=== PATIENT | female | born 1960 | race African-American/Black ===

== ENCOUNTER 2017-03-13 14:03 | Emergency (ER) | payer OTHER ==
[2017-03-13 14:08] VITALS: BP 150/75; PULSE 96; TEMP 97.7; BMI 31.6
--- NOTE | 2017-03-13 15:16 | PDOC ---
History of Present Illness - General Chief Complaint: Pain Stated Complaint: SWOLLEN GUMS Time Seen by Provider: 03/13/17 15:15 History Source: Patient Exam Limitations: No Limitations - History of Present Illness Initial Comments: 03/13/17 15:47 Patient is a 56-year-old female with past medical history of diabetes, HLD, HTN , anicteric attacks, anxiety, presents to the emergency department with 2 days of lower gum pain. Patient states that nothing specifically brought on the pain she does not remember scratching her gums or eating crunchy foods. She states that she has been rinsing with dental wash for the pain which has helped a little bit. She states that that she has seen white stuff coming from her mouth after rinsing. Denies fevers, chills, nausea, vomiting, diarrhea, difficulty swallowing, sore throat, cough, rhinorrhea, ear pain, flulike symptoms. Past History - Travel Traveled outside of the country in the last 30 days: No Close contact w/someone who was outside of country & ill: No - Past Medical History Allergies/Adverse Reactions: Allergies Allergy/AdvReac Type Severity Reaction Status Date / Time No Known Drug Allergies Allergy Verified 03/13/17 14:08 IV CONTRAST AdvReac Uncoded 03/13/17 14:08 Home Medications: Ambulatory Orders Aspirin [ASA -] 81 mg PO DAILY 02/07/12 Citalopram Hydrobromide [Celexa -] 20 mg PO HS 02/07/12 Insulin Detemir [Levemir Flexpen] 60 unit SQ HS 02/07/12 Simvastatin [Zocor -] 20 mg PO HS 02/07/12 Sitagliptin Phosphate [Januvia] 100 mg PO DAILY 02/07/12 Metformin HCl 500 mg PO BID 03/16/16 Amoxicillin - [Amoxicillin 500mg Capsule -] 500 mg PO BID #14 capsule 03/13/17 Anemia: Yes Asthma: No Cancer: No Cardiac Disorders: Yes (? MURMUR) CVA: No COPD: No CHF: No Dementia: No Diabetes: Yes GI Disorders: Yes (GERD) Disorders: No HTN: Yes Hypercholesterolemia: Yes Liver Disease: No Psychiatric Problems: Yes (panic d/o anxiety) Seizures: No Thyroid Disease: Yes (THYROID NODULE) - Surgical History Abdominal Surgery: No Appendectomy: No Cardiac Surgery: No Cholecystectomy: No Lung Surgery: No Neurologic Surgery: No Orthopedic Surgery: No - Immunization History Td Vaccination: Yes Immunization Up to Date: Yes - Suicide/Smoking/Psychosocial Hx Smoking Status: No Smoking History: Never smoked Years of Tobacco Use: 0 Have you smoked in the past 12 months: No Number of Cigarettes Smoked Daily: 0 If you are a former smoker, when did you quit?: 1995 Cigars Per Day: 0 Information on smoking cessation initiated: No Hx Alcohol Use: No Drug/Substance Use Hx: No Substance Use Type: None Hx Substance Use Treatment: No Review of Systems - Review of Systems Able to Perform ROS?: Yes Comments:: 03/13/17 15:48 CONSTITUTIONAL: Absent: fever, chills, diaphoresis, generalized weakness, malaise, loss of appetite HEENT: Absent: rhinorrhea, nasal congestion, throat pain, throat swelling, difficulty swallowing, mouth swelling, ear pain, eye pain, visual Changes CARDIOVASCULAR: Absent: chest pain, loss of consciousness, palpitations, irregular heart rate, peripheral edema RESPIRATORY: Absent: cough, shortness of breath, dyspnea with exertion, orthopnea, wheezing, stridor, hemoptysis GASTROINTESTINAL: Absent: abdominal pain, abdominal distension, nausea, vomiting, diarrhea, constipation, melena, hematochezia GENITOURINARY: Absent: dysuria, frequency, urgency, hesitancy, hematuria, flank pain, genital pain MUSCULOSKELETAL: Absent: myalgia, arthralgia, joint swelling SKIN: Absent: rash, itching, pallor HEMATOLOGIC/IMMUNOLOGIC: Absent: easy bleeding, easy bruising, lymphadenopathy, frequent infections ENDOCRINE: Absent: unexplained weight gain, unexplained weight loss, heat intolerance, cold intolerance NEUROLOGIC: Absent: headache, focal weakness or paresthesias, dizziness, unsteady gait, seizure, mental status changes, bladder or bowel incontinence PSYCHIATRIC: Absent: anxiety, depression, suicidal or homicidal ideation, hallucinations. Is the patient limited Cypriot proficient: No *Physical Exam - Vital Signs Last Vital Signs Temp Pulse Resp BP Pulse Ox 97.7 F 96 H 18 150/75 99 03/13/17 14:05 03/13/17 14:05 03/13/17 14:05 03/13/17 14:05 03/13/17 14:05 - Physical Exam Comments: 03/13/17 15:48 GENERAL: Well developed, well nourished. Awake and alert. No acute distress. HEENT: Normocephalic, atraumatic. PERRLA, EOMI. No conjunctival pallor. Sclera are non- icteric. Moist mucous membranes. Oropharynx is clear. NECK: Supple. Full ROM. No JVD. Carotid pulses 2+ and symmetric, without bruits. No thyromegaly. No lymphadenopathy. CARDIOVASCULAR: Regular rate and rhythm. No murmurs, rubs, or gallops. Distal pulses are 2+ and symmetric. PULMONARY: No evidence of respiratory distress. Lungs clear to auscultation bilaterally. No wheezing, rales or rhonchi. ABDOMINAL: Soft. Non-tender. Non-distended. No rebound or guarding. No organomegaly. Normoactive bowel sounds. MUSCULOSKELETAL Normal range of motion at all joints. No bony deformities or tenderness. No CVA tenderness. EXTREMITIES: No cyanosis. No clubbing. No edema. No calf tenderness. SKIN: Warm and dry. Normal capillary refill. No rashes. No jaundice. NEUROLOGICAL: Alert, awake, appropriate. Cranial nerves 2-12 intact. No deficits to light touch and temperature in face, upper extremities and lower extremities. No motor deficits in the in face, upper extremities and lower extremities. Normoreflexic in the upper and lower extremities. Normal speech. Toes are down- going bilaterally. Gait is normal without ataxia. PSYCHIATRIC: Cooperative. Good eye contact. Appropriate mood and affect. Medical Decision Making - Medical Decision Making 03/13/17 15:48 Patient is a 56-year-old female with past medical history of diabetes, hypertension, HLD, anxiety, panic attacks who presents to the emergency department today complaining of thumb pain for 2 days. On exam there does appear to be white discharge coming from the base of the bottom right first tooth. Most likely this is a dental abscess. We'll prescribe amoxicillin and discharged at this time. Vital signs are stable patient is afebrile. *DC/Admit/Observation/Transfer Diagnosis at time of Disposition: Dental abscess - Discharge Dispostion Disposition: HOME Condition at time of disposition: Good Admit: No - Referrals Referrals: Mikaela Lofton [Primary Care Provider] - - Patient Instructions Printed Discharge Instructions: Tooth Abscess Additional Instructions: You have an infection of your gums. You were prescribed antibiotics. Take this medication (amoxicillin) as prescribed and finish the entire dose even if you feel better. Continue with your dental rinses twice a day. You may take ibuprofen as needed for pain. This medication is [id number]. You may take 800 mg every 8 hours not to exceed 3000 mg per day. Follow up with your primary care doctor. Below he will find referrals for a dentist and a therapist. Return to the emergency department if you have worsening pain, fevers, chills, difficulty swallowing, throat pain, or any changes in your symptoms. Therapist: Liyah Oviedo MS, FAMILY PRESERVATION CASEWORKER, [place] [phone] Call Liyah Oviedo [place] [address] [place] [phone] Dentist: Dr. Petr Gage, DMD [address] [place]
== END 2017-03-13 16:27 | disposition home or self-care (01) ==
LOC: JER 14:03 → JERFT 14:03 → JER 16:27
DX: K04.7 Periapical abscess without sinus (principal); I10 Essential (primary) hypertension; Z79.4 Long term (current) use of insulin; Z79.84 Long term (current) use of oral hypoglycemic drugs; K21.9 Gastro-esophageal reflux disease without esophagitis; F41.0 Panic disorder [episodic paroxysmal anxiety]
CPT/HCPCS: 87070; 87205; 99282-25

== ENCOUNTER 2017-09-12 05:27 | Day surgery (SDC) | payer OTHER ==
[2017-09-11 09:20] VITALS: BMI 31.2
[2017-09-12] MEDS ORDERED: ISOSULFAN BLUE 10 MG/ML VIAL SQ ONE (11:08)
[2017-09-12] MEDS ORDERED: MIDAZOLAM HCL 2 MG/2 ML SINGLE DOSE VIAL ONE (11:13)
[2017-09-12] MEDS ORDERED: ceFAZolin SODIUM 1 GM VIAL ONE (12:37)
[2017-09-12] MEDS ORDERED: ceFAZolin SODIUM 1 GM VIAL IVPB ONE (12:40)
[2017-09-12] MEDS ORDERED: LIDOCAINE HCL 1%, 10 MG/ML (20ML VIAL) INF ONE (12:52)
[2017-09-12] MEDS ORDERED: ONDANSETRON 4 MG/2 ML VIAL IVPUSH PRN (13:12)
[2017-09-12] MEDS ORDERED: oxyCODONE HCL 5 MG TABLET PO PRN ×2 (13:12)
[2017-09-12] MEDS ORDERED: LACTATED RINGERS SOLUTION 1,000 ML IV SCH (13:15)
--- NOTE | 2017-09-12 13:30 | HP ---
History & Physical Update - History History: No Change - Physical Physical: No Change - Assessment Assessment: No Change - Plan Plan: No Change Currently as noted:: reviewed H/P
--- NOTE | 2017-09-12 15:23 | OP ---
DATE OF OPERATION: 09/12/2017 PREOPERATIVE DIAGNOSES: Left nipple discharge, left breast intraductal papilloma. POSTOPERATIVE DIAGNOSES: Left nipple discharge, left breast intraductal papilloma. PROCEDURE: Left breast wire-localized excision, excision of mass, nipple duct exploration. SURGEON: Kacey Palomo MD ANESTHESIA: Local/IV sedation. ESTIMATED BLOOD LOSS: Minimal. COMPLICATIONS: None. This was a sterile procedure. INDICATIONS: Patient presented with a spontaneous clear nipple discharge from the central left nipple, and she had a mammogram and a sonogram. The mammogram was negative. The ultrasound noted a nodule in the 9 o'clock retroareolar location. A needle biopsy showed an intraductal papilloma. My feeling is both the discharge and the nodule are probably related. My recommendation was excision of this nodule with wire localization as well as excision with a nipple duct exploration for the discharge. The procedure was discussed with all of her questions answered. PROCEDURE IN DETAIL: Patient was brought to [facility] and taken into the operating room, and after induction of anesthesia as well as IV antibiotics, the left breast was prepped and draped in the usual sterile fashion. Prior to bringing into the operating room, a wire was used to localize the clip in the retroareolar inner left breast by the radiologist. Once the area was cleansed with Betadine and the area was anesthetized with 1% lidocaine without epinephrine, the duct with the discharge was dilated up to a 2.0 dilator, and there was a copious amount of discharge from this duct. The periareolar incision was made in her left breast, and a wire was used as I tried to get down to the area of interest. This was excised en bloc all the way to almost the dermis of the nipple, and this was tagged with a stitch at the nipple end of duct, and an excisional biopsy was performed. This was first sent for specimen radiograph which showed the clip and wire to be intact on the specimen. This was then sent to Pathology for permanent section. Hemostasis assured with electrocautery. The parenchyma approximated with interrupted 2-0 Vicryl, skin approximated with interrupted 2-0 Vicryl and running 4-0 Prolene. A sterile dressing of Tegaderm and 4 x 4's applied. She tolerated the procedure well, was taken to Recovery in good condition. KACEY PALOMO M.D. LILIAM/[id number]
[2017-09-12 15:33] VITALS: TEMP 97.8
[2017-09-12 17:28] VITALS: BP 140/76; PULSE 80
--- NOTE | 2017-09-14 09:57 | PATH ---
Surgical Pathology Report Patient Name: AILYN BEARD [facility]. Rec. #: [id number] /Age/Gender: 1960 (Age: 57) / F Account: [id number] Location: [facility] SURGICAL Taken: 09/12/2017 Received: 09/12/2017 Reported: 09/14/2017 Physicians: Kacey Hsu M.D. Specimen(s) Received BREAST MASS Clinical History Left breast papilloma/nipple discharge Final Diagnosis BREAST, LEFT, EXCISION: INTRADUCTAL PAPILLOMA IN A BACKGROUND OF PROLIFERATIVE FIBROCYSTIC CHANGES INCLUDING STROMAL FIBROSIS, MICROCYSTS, APOCRINE METAPLASIA, USUAL DUCTAL HYPERPLASIA, AND FOCAL SCLEROSING ADENOSIS. Electronically Signed Sharmin Nascimento M.D. Gross Description Received fresh on an AccuGrid labeled "left breast excision," is a 6.5 x 4.3 x 1.6 cm portion of fibroadipose tissue with a needle localization wire present. There is a suture marking the nipple end of the duct, per the surgeon. There is no skin or nipple present. The specimen is inked as follows: Nipple end of duct red, remainder of specimen blue. The specimen is serially sectioned from the nipple end to deep. Sectioning reveals foci of white fibrous tissue. No definitive mass is identified. The specimen is entirely and sequentially submitted in 20 cassettes with the nipple end in cassette 1 and the deep in cassette 20 (one bisected section each in cassettes 3/4, 5/6, 7/8, 9/10, 11/12, 13/14, 15/16, 17/18). Total formalin fixation time: Approximately 9 hours 09/12/201709/12/2017
== END 2017-09-12 16:25 | disposition home or self-care (01) ==
LOC: JASU-SURG 05:27
PROVIDERS: ATTEND Surgery
PROC: 0HBU0ZX Excision of Left Breast, Open Approach, Diagnostic (ICD-10-PCS; principal; 2017-09-12 12:00)
DX: N60.12 Diffuse cystic mastopathy of left breast (principal); D24.2 Benign neoplasm of left breast; N60.82 Other benign mammary dysplasias of left breast; N64.52 Nipple discharge
CPT/HCPCS: 19281; 82962; 88307-TC; 94760

== ENCOUNTER 2018-07-25 16:10 | Emergency (ER) | payer OTHER ==
[2018-07-25 16:20] VITALS: TEMP 98.5; BMI 32.2
--- NOTE | 2018-07-25 16:22 | PDOC ---
History of Present Illness - General Chief Complaint: Pain, Acute Stated Complaint: ABD PAIN Time Seen by Provider: 07/25/18 16:21 - History of Present Illness Initial Comments: 07/25/18 16:21 58 yo female with PMH IDDM, HTN, Anxiety/Panic attacks presents with complaint of LLQ abdominal pain which started today. She endorses RLQ pain which started last week. She saw her OB who sent her for an US which she states she is supposed to follow up the results on Monday. She denies any current RLQ pain, and states that her last bowel movement was yesterday. She endorses that a bowel movement once every other day is normal for her. She also endorses panic and anxiety attacks which she has a medication for but does not remember the name of. She states she did not take any medications prior to presentation and admits that she did not even take her diabetes meds this morning. She denies any chest pain, SOB, fevers, chills, nausea, vomiting, diarrhea, constipation, abnormal vaginal discharge, pain or bleeding, denies any urinary symptoms. Past History - Past Medical History Allergies/Adverse Reactions: Allergies Allergy/AdvReac Type Severity Reaction Status Date / Time No Known Drug Allergies Allergy Verified 07/25/18 16:20 IV CONTRAST AdvReac Uncoded 07/25/18 16:20 Home Medications: Ambulatory Orders Aspirin [ASA -] 81 mg PO DAILY 02/07/12 Citalopram Hydrobromide [Celexa -] 20 mg PO HS 02/07/12 Insulin Detemir [Levemir Flexpen] 60 unit SQ HS 02/07/12 Simvastatin [Zocor -] 20 mg PO HS 02/07/12 Sitagliptin Phosphate [Januvia] 100 mg PO DAILY 02/07/12 metFORMIN HCL [Metformin HCl] 500 mg PO BID 03/16/16 Glipizide [Glipizide ER] 2.5 mg PO BID 09/11/17 Valsartan [Diovan] 80 mg PO DAILY 09/11/17 Anemia: Yes Asthma: No Cancer: No Cardiac Disorders: Yes (? MURMUR) CVA: No COPD: No CHF: No Dementia: No Diabetes: Yes GI Disorders: Yes (GERD) Disorders: No HTN: Yes Hypercholesterolemia: Yes Liver Disease: No Psychiatric Problems: Yes (anxiety, panic attacks) Seizures: No Thyroid Disease: Yes (THYROID NODULE) - Surgical History Abdominal Surgery: No Appendectomy: No Cardiac Surgery: No Cholecystectomy: No Lung Surgery: No Neurologic Surgery: No Orthopedic Surgery: No - Immunization History Td Vaccination: Yes Immunization Up to Date: Yes - Suicide/Smoking/Psychosocial Hx Smoking Status: No Smoking History: Former smoker Years of Tobacco Use: 0 Have you smoked in the past 12 months: No Number of Cigarettes Smoked Daily: 0 If you are a former smoker, when did you quit?: 1994 Cigars Per Day: 0 Information on smoking cessation initiated: No Hx Alcohol Use: No Drug/Substance Use Hx: No Substance Use Type: None Hx Substance Use Treatment: No *Physical Exam - Vital Signs Last Vital Signs Temp Pulse Resp BP Pulse Ox 98.5 F 85 18 141/62 99 07/25/18 16:15 07/25/18 16:15 07/25/18 16:15 07/25/18 16:15 07/25/18 16:15 - Physical Exam Comments: 07/25/18 16:21 GEN: A&O, no acute distress HEENT: dry mucus membranes NECK: supple HEART: RRR, no murmurs noted (though pt endorses she has been told she has a murmur) LUNGS: CTA b/l ABDOMEN: Soft, nontender to palpation, normoactive bowel sounds in all 4 quadrants EXTREMITIES: no peripheral edema or calf tenderness Moderate Sedation - Procedure Monitoring Vital Signs: Procedure Monitoring Vital Signs Temperature 98.5 F 07/25/18 16:15 Pulse Rate 85 07/25/18 16:15 Respiratory Rate 18 07/25/18 16:15 Blood Pressure 141/62 07/25/18 16:15 O2 Sat by Pulse Oximetry (%) 99 07/25/18 16:15 ED Treatment Course - LABORATORY CBC & Chemistry Diagram: 07/25/18 17:35 07/25/18 17:35 Medical Decision Making - Medical Decision Making 07/25/18 16:54 58 yo female presents with LLQ pain for one day with 1 week hx RLQ pain which is now resolved. Nontender on palpation. Will do CBC, CMP, UA to r/u UTI, CT Abd/Pelv to r/o diverticulitis. 07/25/18 18:43 cbc, cmp, UA wnl CT abdomen pelvis pending. Signout given to night resident who will continue care from this point forward. *DC/Admit/Observation/Transfer Diagnosis at time of Disposition: Abdominal pain - Referrals - Patient Instructions - Post Discharge Activity
[2018-07-25] MEDS ORDERED: ACETAMINOPHEN 1000 MG/100 ML VIAL (NON FORMULARY) IVPB ONE (16:57)
[2018-07-25] MEDS ORDERED: LACTATED RINGERS SOLUTION 1000 ML INFUS.BAG IV ONE (16:58)
[2018-07-25] MEDS ORDERED: ACETAMINOPHEN INJECTION 100 ML IVPB ONE (17:11)
[2018-07-25 17:46] LABS: BASO % 0.4 % (0-2.0); EOS % 0.9 % (0-4.5); HEMATOCRIT 34.4 % (32.4-45.2); HEMOGLOBIN 11.4 GM/dL (10.7-15.3); LYMPH % 22.9 % (8-40); MCH 29.3 pg (25.7-33.7); MCHC 33.1 g/dl (32.0-36.0); MEAN CELL VOLUME 88.6 fl (80-96); MEAN PLT VOLUME 8.2 fl (7.5-11.1); NEUT % 68.8 % (42.8-82.8); PLATELET COUNT 295 K/MM3 (134-434); RBC 3.88 M/mm3 (3.60-5.2); RDW 16.4 % (11.6-15.6); WHITE BLOOD COUNT 8.2 K/mm3 (4.0-10.0)
[2018-07-25 18:10] LABS: ALBUMIN 3.6 g/dl (3.4-5.0); ALK PHOS 90 U/L (45-117); ANION GAP 7 MMOL/L (8-16); BILIRUBIN,TOTAL 0.1 mg/dL (0.2-1); BLOOD UREA NITROGEN 16 mg/dL (7-18); CALCIUM 8.8 mg/dL (8.5-10.1); CHLORIDE 107 mmol/L (98-107); CO2 27 mmol/L (21-32); CREATININE 0.8 mg/dL (0.55-1.3); GLUCOSE,RANDOM 157 mg/dL (74-106); POTASSIUM 4.3 mmol/L (3.5-5.1); SGOT/AST 6 U/L (15-37); SGPT/ALT 16 U/L (13-61); SODIUM 141 mmol/L (136-145); TOT PROT 7.6 g/dl (6.4-8.2)
[2018-07-25 18:36] LABS: URINE APPEARANCE CLEAR; URINE BILIRUBIN NEGATIVE (<2.0 mg/dL); URINE COLOR STRAW; URINE GLUCOSE (UA) NEGATIVE (NEGATIVE); URINE KETONE NEGATIVE (NEGATIVE); URINE LEUK ESTERASE NEGATIVE (NEGATIVE); URINE NITRITE NEGATIVE (NEGATIVE); URINE PROTEIN 2+ (NEGATIVE); URINE UROBILINOGEN NEGATIVE mg/dL (0.2-1.0)
[2018-07-25 18:37] LABS: EPI CELLS RARE /HPF (FEW); URINE MUCUS RARE
--- NOTE | 2018-07-25 18:51 | PDOC ---
Documentation entered by Sonia Meraz SCRIBE, acting as scribe for Bruna Ceballos MD. Attending Attestation - Resident Resident Name: TarasSebastien - ED Attending Attestation I have performed the following: I have examined & evaluated the patient, The case was reviewed & discussed with the resident, I agree w/resident's findings & plan, Exceptions are as noted - HPI HPI: 07/25/18 17:06 The patient is a 58 year old female with a significant past medical history of IDDM, HTN, Anxiety/Panic attacks who presents to the ED with complaint of left lower abdominal pain which started today and one week of right lower abdominal pain which for a week. She reports her last bowel movement was yesterday. She denies any chest pain, SOB, fevers, chills, nausea, vomiting, diarrhea, constipation, abnormal vaginal discharge, pain or bleeding, denies any urinary symptoms. - Physicial Exam PE: 07/25/18 18:49 awake alert lungs clear bilaterally heart rrr no mrg abd soft min ttp on lower abd exam. no rebound no guarding. ext wwp. no rebound no guarding. skin warm and dry. nuero alert and oriented x 3. - Medical Decision Making 07/25/18 18:06 58 yo F with right now left lower quadrant pain, no urinary complaints. no f/c . had outpt us which was unremarkable. differential colitis, diverticultits uti, plan labs ct a/p reassess. 07/25/18 18:50 pt had outpt us unsure of results. awaiting ct a/p , pt signed out to oncoming attending. awaiting ct results. if negative. likely dc home fu outpt. Bruna Ceballos MD: This documentation has been prepared by the Mariya romero Amanda, SCRIBE, under my direction and personally reviewed by me in its entirety. I confirm that the documentation accurately reflects all work, treatment, procedures, and medical decision making performed by me.
[2018-07-25 18:55] VITALS: BP 138/64; PULSE 86
--- NOTE | 2018-07-25 19:34 | PDOC ---
*Physical Exam - Vital Signs Last Vital Signs Temp Pulse Resp BP Pulse Ox 98.5 F 86 18 138/64 99 07/25/18 18:46 07/25/18 18:46 07/25/18 18:46 07/25/18 18:46 07/25/18 18:46 ED Treatment Course - LABORATORY CBC & Chemistry Diagram: 07/25/18 17:35 07/25/18 17:35 - ADDITIONAL ORDERS Additional order review: Laboratory Results 07/25/18 07/25/18 18:11 17:35 Sodium 141 Potassium 4.3 Chloride 107 Carbon Dioxide 27 Anion Gap 7 L BUN 16 Creatinine 0.8 Creat Clearance w eGFR > 60 Random Glucose 157 H Calcium 8.8 Total Bilirubin 0.1 L AST 6 L ALT 16 Alkaline Phosphatase 90 Total Protein 7.6 Albumin 3.6 Urine Color Straw Urine Appearance Clear Urine pH 6.0 Ur Specific [place] 1.017 Urine Protein 2+ H Urine Glucose (UA) Negative Urine Ketones Negative Urine Blood Negative Urine Nitrite Negative Urine Bilirubin Negative Urine Urobilinogen Negative Ur Leukocyte Esterase Negative Urine WBC (Auto) <1 Urine RBC (Auto) None Ur Epithelial Cells Rare Urine Mucus Rare 07/25/18 17:35 RBC 3.88 MCV 88.6 MCHC 33.1 RDW 16.4 H MPV 8.2 Neutrophils % 68.8 D Lymphocytes % 22.9 D Monocytes % 7.0 Eosinophils % 0.9 Basophils % 0.4 - Medications Given in the ED: ED Medications Discontinued Medications Generic Name Dose Route Start Last Admin Trade Name Freq PRN Reason Stop Dose Admin Acetaminophen 1,000 mg 07/25/18 16:57 07/25/18 17:39 Ofirmev Injection - IVPB 07/25/18 16:58 1,000 mg ONCE ONE Administration Lactated Ringer's 1,000 ml 07/25/18 16:58 07/25/18 17:45 Lactated Ringers Solution IV 07/25/18 16:59 1,000 ml ONCE ONE Administration Medical Decision Making - Medical Decision Making [id number] CT/ABDOMEN & PELVIS CT W/O CONTR Left lower quadrant pain. Rule out diverticulitis CT scan of the abdomen pelvis without oral and intravenous contrast Coronal and sagittal reformatted images were obtained The visualized lung base appears unremarkable and the heart is within normal limits in size. The liver measures 18 cm in craniocaudal length with homogeneous attenuation. Partially distended stomach limiting evaluation of its wall. The spleen, pancreas, gallbladder and both adrenal glands appear unremarkable. Both kidneys are within normal limits in size without evidence of hydroureteronephrosis, renal or ureteral obstructing stone, bilaterally. Partially distended urinary bladder without wall thickening or intraluminal layering stones. There is no evidence of small bowel obstruction. Normal-appearing terminal ileum. Nonvisualization of the appendix. Normal stool burden in the colon with suggestion of a few scattered diverticula and without evidence of colitis/diverticulitis. Normal size uterus. Normal size right and possible visualization of a normal size left ovary. No free air, free fluid or enlarged lymph nodes are identified within the abdomen and pelvis. Visualized osseous structures appear intact. No suspicious osseous lesions identified Impression: There is no evidence of hydroureteronephrosis, renal or ureteral stone, bilaterally. Nonvisualization of the appendix. A few scattered diverticula in the colon without evidence of colitis/acute diverticulitis. Borderline hepatomegaly measuring 18 cm in craniocaudal length with normal attenuation. 07/25/18 19:34 Considering normal lab results and imaging, pt can be discharged to home with follow-up. Pt advised to follow-up with PCP in 1-2 days and has an CLINICAL APPLICATIONS SPECIALIST appointment tomorrow for pelvic US. Strict return precautions provided with pt understanding. 07/25/18 20:11 *DC/Admit/Observation/Transfer Diagnosis at time of Disposition: Abdominal pain Qualifiers: Abdominal location: left lower quadrant Qualified Code(s): R10.32 - Left lower quadrant pain - Discharge Dispostion Disposition: HOME Condition at time of disposition: Good Decision to Admit order: No - Referrals Referrals: Mikaela Lofton [Primary Care Provider] - - Patient Instructions Printed Discharge Instructions: DI for Abdominal Pain-Adult Additional Instructions: You were seen in the ER today for abdominal pain. The results of your labs and imaging today were normal. Please follow-up with your primary care doctor and OB /PACKAGING ASSOCIATE for your scheduled appointments to discuss your visit and make sure your symptoms have improved. Please return to the ER if you have any worsening pain, development of fevers or chills, loss of consciousness, inability to tolerate food or fluids, or any other concerns. Please follow-up with your CLINICAL APPLICATIONS SPECIALIST doctor to follow the results of your pelvic ultrasound. - Post Discharge Activity
== END 2018-07-25 20:00 | disposition home or self-care (01) ==
LOC: JER 16:10
PROC: 3E033NZ Introduction of Analgesics, Hypnotics, Sedatives into Peripheral Vein, Percutaneous Approach (ICD-10-PCS; principal; 2018-07-25)
PROC: 3E0337Z Introduction of Electrolytic and Water Balance Substance into Peripheral Vein, Percutaneous Approach (ICD-10-PCS; 2018-07-25)
DX: R10.32 Left lower quadrant pain (principal); F41.9 Anxiety disorder, unspecified; Z87.891 Personal history of nicotine dependence; E07.9 Disorder of thyroid, unspecified; I10 Essential (primary) hypertension; K21.9 Gastro-esophageal reflux disease without esophagitis; E11.9 Type 2 diabetes mellitus without complications
CPT/HCPCS: 36415; 74176-TC; 80053; 81003; 81015; 85025; 87086; 96361; 96374; 99283-25; J0131

== ENCOUNTER 2018-08-23 04:01 | Emergency (ER) | payer OTHER ==
[2018-08-23 04:52] VITALS: BP 154/77; PULSE 86; TEMP 97.8; BMI 29.8
--- NOTE | 2018-08-23 04:53 | PDOC ---
Attending Attestation - Resident Resident Name: Jero Cordova - ED Attending Attestation I have performed the following: I have examined & evaluated the patient ( psychiatric I without evidence of outside), The case was reviewed & discussed with the resident, I agree w/resident's findings & plan - HPI HPI: 08/23/18 06:25 58-year-old female with chronic pain complaining of low back pain with some radiation to the right posterior hip. She denies bowel or urinary incontinence. She denies fever or trauma. - Physicial Exam PE: 08/23/18 06:26 GENERAL: Awake, in no acute distress HEAD: No signs of trauma NECK: Normal ROM, LUNGS:. Normal work of breathing. HEART: Regular rate and rhythm, ABDOMEN: Soft, nondistended CHEST WALL: BACK: No midline tenderness. EXTREMITIES:. No erythema, or tenderness NEUROLOGICAL: Alert, SKIN: Warm, Dry - Medical Decision Making 08/23/18 06:27 58-year-old female with atraumatic low back pain and extensive history of lumbar disease Patient given tramadol 1 tablet the emergency department She will be discharged home and has been counseled by the emergency medicine resident as to the need for follow-up. There is no weakness or bowel or urinary incontinence/retention to suggest spinal cord involvement
[2018-08-23] MEDS ORDERED: ACETAMINOPHEN 325 MG TABLET (FP) PO ONE (05:16)
--- NOTE | 2018-08-23 05:19 | PDOC ---
History of Present Illness - General Chief Complaint: Back Pain Stated Complaint: PAIN LOWER BACK Time Seen by Provider: 08/23/18 04:40 History Source: Patient Exam Limitations: No Limitations - History of Present Illness Initial Comments: 58 yo female with PMH IDDM, HTN, Anxiety/Panic p/w lower back pain. Pt endorses worsening LBP since 3 days ago. The pain is located in lower central back, 8/10 , radiates to b/l flanks, sharp, intermitent, reproducible with deep pressing, not a/w sensory or motor deficit. 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 Denies urinary, bowel symptoms, fever, chills, abd pain. 08/23/18 05:32 Explained to patient that she will need to follow up with her neurologist/pain management/PT. Will dc the patient and give pt tylenol Past History - Past Medical History Allergies/Adverse Reactions: Allergies Allergy/AdvReac Type Severity Reaction Status Date / Time No Known Drug Allergies Allergy Verified 08/23/18 04:52 IV CONTRAST AdvReac Uncoded 08/23/18 04:52 Home Medications: Ambulatory Orders Aspirin [ASA -] 81 mg PO DAILY 02/07/12 Citalopram Hydrobromide [Celexa -] 20 mg PO HS 02/07/12 Insulin Detemir [Levemir Flexpen] 60 unit SQ HS 02/07/12 Simvastatin [Zocor -] 20 mg PO HS 02/07/12 Sitagliptin Phosphate [Januvia] 100 mg PO DAILY 02/07/12 metFORMIN HCL [Metformin HCl] 500 mg PO BID 03/16/16 Glipizide [Glipizide ER] 2.5 mg PO BID 09/11/17 Valsartan [Diovan] 80 mg PO DAILY 09/11/17 Anemia: Yes Asthma: No Cancer: No Cardiac Disorders: Yes (? MURMUR) CVA: No COPD: No CHF: No Dementia: No Diabetes: Yes GI Disorders: Yes (GERD) Disorders: No HTN: Yes Hypercholesterolemia: Yes Liver Disease: No Psychiatric Problems: Yes (anxiety, panic attacks) Seizures: No Thyroid Disease: Yes (THYROID NODULE) - Surgical History Abdominal Surgery: No Appendectomy: No Cardiac Surgery: No Cholecystectomy: No Lung Surgery: No Neurologic Surgery: No Orthopedic Surgery: No - Immunization History Td Vaccination: Yes Immunization Up to Date: Yes - Suicide/Smoking/Psychosocial Hx Smoking Status: No Smoking History: Never smoked Years of Tobacco Use: 0 Have you smoked in the past 12 months: No Number of Cigarettes Smoked Daily: 0 If you are a former smoker, when did you quit?: 1994 Cigars Per Day: 0 Information on smoking cessation initiated: No Hx Alcohol Use: No Drug/Substance Use Hx: No Substance Use Type: None Hx Substance Use Treatment: No Review of Systems - Review of Systems Able to Perform ROS?: Yes Is the patient limited Luxembourger proficient: No Constitutional: No: Chills, Fever, Weakness Respiratory: No: Cough, Shortness of Breath Cardiac (ROS): No: Chest Pain Musculoskeletal: Yes: Back Pain Neurological: No: Numbness, Paresthesia, Tingling *Physical Exam - Vital Signs Last Vital Signs Temp Pulse Resp BP Pulse Ox 97.8 F 86 16 154/77 100 08/23/18 04:01 08/23/18 04:01 08/23/18 04:01 08/23/18 04:01 08/23/18 04:01 - Physical Exam General Appearance: Yes: Obese. No: Apparent Distress Respiratory/Chest: positive: Normal Breath Sounds Cardiovascular: positive: Regular Rhythm, Regular Rate, S1, S2. negative: Edema , Murmur Gastrointestinal/Abdominal: positive: Normal Bowel Sounds. 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 intact, Fully Oriented, Motor Strength 5/5 Deep Tendon Reflexes: Ankle (L): 2+, Ankle (R): 2+, Knee (L): 2+, Knee (R): 2+, Bicep (L): 2+, Bicep (R): 2+, Tricep (L): 2+, Tricep (R): 2+ *DC/Admit/Observation/Transfer Diagnosis at time of Disposition: Lower back pain Qualifiers: Chronicity: unspecified Back pain laterality: unspecified Sciatica presence: without sciatica Qualified Code(s): M54.5 - Low back pain - Discharge Dispostion Disposition: HOME Condition at time of disposition: Stable Decision to Admit order: No - Referrals Referrals: Mikaela Lofton [Primary Care Provider] - Marcos Holder MD [Staff Physician] - - Patient Instructions Printed Discharge Instructions: DI for Low Back Pain Additional Instructions: You were evaluated in the ED for lower back pain. It's likely due to disc herniation. You will need to follow up with your specialists including physical therapist, neurologist, orthopedic surgeon and primary medical doctor. You may take OTC pain medication for pain relief. - Post Discharge Activity
[2018-08-23] MEDS ORDERED: traMADol HCL 50 MG TABLET PO ONE (05:38)
[2018-08-23] MEDS ORDERED: traMADol HCL 50 MG TABLET ONE (05:53)
== END 2018-08-23 06:28 | disposition home or self-care (01) ==
LOC: JER 04:01
DX: M54.5 Low back pain (principal); I10 Essential (primary) hypertension; E11.9 Type 2 diabetes mellitus without complications; Z79.4 Long term (current) use of insulin; Z79.84 Long term (current) use of oral hypoglycemic drugs; K21.9 Gastro-esophageal reflux disease without esophagitis; E78.00 Pure hypercholesterolemia, unspecified; F41.8 Other specified anxiety disorders; F41.0 Panic disorder [episodic paroxysmal anxiety]
CPT/HCPCS: 82962; 99281-25

== ENCOUNTER 2019-01-15 14:30 | Emergency (ER) | payer OTHER ==
--- NOTE | 2019-01-15 14:51 | PDOC ---
Rapid Medical Evaluation Chief Complaint: Pain Time Seen by Provider: 01/15/19 14:49 Medical Evaluation: Allergies Allergy/AdvReac Type Severity Reaction Status Date / Time No Known Drug Allergies Allergy Verified 08/23/18 04:52 IV CONTRAST AdvReac Uncoded 08/23/18 04:52 01/15/19 14:50 Pt presents with one day of R 4th and 5th finger pain. Denies trauma. Insulin dependent diabetic Exam: TTP of the base of the R5th finger Orders: Nothing Pt to proceed to the ER for further evaluation Discharge Disposition - Diagnosis Hand pain Qualifiers: Laterality: right Qualified Code(s): M79.641 - Pain in right hand - Referrals - Patient Instructions - Post Discharge Activity
[2019-01-15 14:52] VITALS: BP 153/83; PULSE 88; TEMP 98.5; BMI 30.2
--- NOTE | 2019-01-15 15:19 | PDOC ---
History of Present Illness - General Chief Complaint: Pain Stated Complaint: LT. HAND PAIN Time Seen by Provider: 01/15/19 14:49 - History of Present Illness Initial Comments: 01/15/19 15:18 58-year-old female with a past medical history of diabetes presents for evaluation of atraumatic onset of right hand pain specifically at the right fifth MCPJ no systemic symptoms. Past History - Past Medical History Allergies/Adverse Reactions: Allergies Allergy/AdvReac Type Severity Reaction Status Date / Time No Known Drug Allergies Allergy Verified 01/15/19 14:52 IV CONTRAST AdvReac Uncoded 01/15/19 14:52 Home Medications: Ambulatory Orders Aspirin [ASA -] 81 mg PO DAILY 02/07/12 Citalopram Hydrobromide [Celexa -] 20 mg PO HS 02/07/12 Insulin Detemir [Levemir Flexpen] 60 unit SQ HS 02/07/12 Simvastatin [Zocor -] 20 mg PO HS 02/07/12 Sitagliptin Phosphate [Januvia] 100 mg PO DAILY 02/07/12 metFORMIN HCL [Metformin HCl] 500 mg PO BID 03/16/16 Glipizide [Glipizide ER] 2.5 mg PO BID 09/11/17 Valsartan [Diovan] 80 mg PO DAILY 09/11/17 Anemia: Yes Asthma: No Cancer: No Cardiac Disorders: Yes (? MURMUR) CVA: No COPD: No CHF: No Dementia: No Diabetes: Yes (IDDM) GI Disorders: Yes (GERD) Disorders: No HTN: Yes Hypercholesterolemia: Yes Liver Disease: No Psychiatric Problems: Yes (anxiety, panic attacks) Seizures: No Thyroid Disease: Yes (THYROID NODULE) - Surgical History Abdominal Surgery: No Appendectomy: No Cardiac Surgery: No Cholecystectomy: No Lung Surgery: No Neurologic Surgery: No Orthopedic Surgery: No - Immunization History Td Vaccination: Yes Immunization Up to Date: Yes - Suicide/Smoking/Psychosocial Hx Smoking Status: No Smoking History: Never smoked Years of Tobacco Use: 0 Have you smoked in the past 12 months: No Number of Cigarettes Smoked Daily: 0 If you are a former smoker, when did you quit?: 1995 Cigars Per Day: 0 Hx Alcohol Use: No Drug/Substance Use Hx: No Substance Use Type: None Hx Substance Use Treatment: No Review of Systems - Review of Systems Constitutional: No: Fever Musculoskeletal: Yes: Joint Pain *Physical Exam - Vital Signs Last Vital Signs Temp Pulse Resp BP Pulse Ox 98.5 F 88 18 153/83 99 01/15/19 14:34 01/15/19 14:34 01/15/19 14:34 01/15/19 14:34 01/15/19 14:34 - Physical Exam Comments: 01/15/19 15:17 Right hand skin color and temperature are normal. There is decreased range of motion of the fifth MCP J. No gross sensory motor deficits normal skin color temperature at the MCP J. Tenderness about the fifth MCP J Medical Decision Making - Medical Decision Making 01/15/19 15:16 Traumatic onset of right hand pain 2 days no systemic symptoms. Examination and history consistent with gouty attack patient is on a diabetic she is refusing Medrol Dosepak because of her increased weight gain over the last 2 weeks and I advised her to avoid anti-inflammatories for renal issues she will take Tylenol for pain and follow-up with her primary care physician *DC/Admit/Observation/Transfer Diagnosis at time of Disposition: Gout Hand pain Qualifiers: Laterality: right Qualified Code(s): M79.641 - Pain in right hand - Discharge Dispostion Disposition: HOME Condition at time of disposition: Stable Decision to Admit order: No - Referrals Referrals: Shabbir Lofton MD [Staff Physician] - - Patient Instructions Additional Instructions: Return to the emergency room for worsening symptoms. Follow-up with your primary care physician in 1-2 days for further evaluation and treatment options. Tylenol for pain as directed. - Post Discharge Activity
== END 2019-01-15 15:28 | disposition home or self-care (01) ==
LOC: JERFT 14:30
DX: M10.9 Gout, unspecified (principal); I10 Essential (primary) hypertension; E11.9 Type 2 diabetes mellitus without complications; Z79.4 Long term (current) use of insulin; E78.00 Pure hypercholesterolemia, unspecified
CPT/HCPCS: 99281-25

== ENCOUNTER 2019-03-02 10:40 | Observation (INO) | payer OTHER ==
[2019-03-02 10:55] VITALS: BMI 32.5
[2019-03-02] MEDS ORDERED: FAMOTIDINE 20 MG/50 ML IVPB 20 MG/50 ML MG IVPB ONE ×2 (11:31→12:32)
[2019-03-02] MEDS ORDERED: PANTOPRAZOLE SODIUM 40 MG VIAL IVPUSH ONE (11:31)
--- NOTE | 2019-03-02 11:32 | PDOC ---
History of Present Illness - General Chief Complaint: Chest Pain Stated Complaint: CHEST TIGHTNESS Time Seen by Provider: 03/02/19 10:57 History Source: Patient Exam Limitations: No Limitations - History of Present Illness Initial Comments: 03/02/19 12:16 58 yo F w/ a h/o NIDDM, HTN, HLD, anxiety, GERD comes in c/o 1-2 weeks of constant burping and L sided chest tightness but last night everything got worse and she started having palpitations. NO relation with movement, position, food, no prior h/o similar symptoms. She says that it all started at her uncle' s and never went away. NO diaphoresis, no NVD, no abdominal pain, no change in appetite. No numbness/tingling (aside form her baseline neuropathy) Denies drug use, no smoking, no h/o sudden in the family at a young age. Pt has not taken her morning meds. 03/02/19 12:18 Past History - Past Medical History Allergies/Adverse Reactions: Allergies Allergy/AdvReac Type Severity Reaction Status Date / Time No Known Drug Allergies Allergy Verified 01/15/19 14:52 IV CONTRAST AdvReac Uncoded 01/15/19 14:52 Home Medications: Ambulatory Orders Aspirin [ASA -] 81 mg PO DAILY 02/07/12 Citalopram Hydrobromide [Celexa -] 20 mg PO HS 02/07/12 Insulin Detemir [Levemir Flexpen] 60 unit SQ HS 02/07/12 Simvastatin [Zocor -] 20 mg PO HS 02/07/12 Sitagliptin Phosphate [Januvia] 100 mg PO DAILY 02/07/12 metFORMIN HCL [Metformin HCl] 500 mg PO BID 03/16/16 Glipizide [Glipizide ER] 2.5 mg PO BID 09/11/17 Valsartan [Diovan] 80 mg PO DAILY 09/11/17 Semaglutide [Ozempic] 1 mg SQ DAILY 03/02/19 Anemia: Yes Asthma: No Cancer: No Cardiac Disorders: Yes (? MURMUR) CVA: No COPD: No CHF: No Dementia: No Diabetes: Yes (IDDM) GI Disorders: Yes (GERD) Disorders: No HTN: Yes Hypercholesterolemia: Yes Liver Disease: No Psychiatric Problems: Yes (anxiety, panic attacks) Seizures: No Thyroid Disease: Yes (THYROID NODULE) - Surgical History Abdominal Surgery: No Appendectomy: No Cardiac Surgery: No Cholecystectomy: No Lung Surgery: No Neurologic Surgery: No Orthopedic Surgery: No - Immunization History Td Vaccination: Yes Immunization Up to Date: Yes - Psycho Social/Smoking Cessation Hx Smoking Status: No Smoking History: Never smoked Years of Tobacco Use: 0 Have you smoked in the past 12 months: No Number of Cigarettes Smoked Daily: 0 If you are a former smoker, when did you quit?: 1994 Cigars Per Day: 0 Information on smoking cessation initiated: No Hx Alcohol Use: No Drug/Substance Use Hx: No Substance Use Type: None Hx Substance Use Treatment: No Review of Systems - Review of Systems Able to Perform ROS?: Yes Constitutional: No: Chills, Fever, Malaise, Night Sweats HEENTM: No: Eye Pain, Recent change in vision, Throat Pain Respiratory: No: Cough, Shortness of Breath Cardiac (ROS): Yes: Chest Pain, Palpitations, Chest Tightness ABD/GI: No: Diarrhea, Nausea, Vomiting, Abdominal cramping : No: Dysuria, Hematuria Musculoskeletal: No: Back Pain Integumentary: No: Rash Neurological: No: Headache, Numbness, Dizziness Psychiatric: No: Change in Appetite Endocrine: No: Unexplained Weight Loss *Physical Exam - Vital Signs Last Vital Signs Temp Pulse Resp BP Pulse Ox 98.0 F 89 16 153/81 97 03/02/19 10:48 03/02/19 10:48 03/02/19 10:48 03/02/19 10:48 03/02/19 10:48 - Physical Exam General Appearance: Yes: Nourished. No: Apparent Distress HEENT: positive: AMELIA, Normal ENT Inspection, Normal Voice. negative: Pale Conjunctivae, Scleral Icterus (R), Scleral Icterus (L) Neck: positive: Supple. negative: Decreased range of motion, Tender midline Respiratory/Chest: positive: Chest Tender (L parasternal), Lungs Clear, Normal Breath Sounds. negative: Respiratory Distress, Accessory Muscle Use Cardiovascular: positive: Regular Rhythm, Regular Rate Gastrointestinal/Abdominal: positive: Normal Bowel Sounds, Tender (epigastric area), Soft Musculoskeletal: positive: Normal Inspection. negative: CVA Tenderness, Decreased Range of Motion Extremity: positive: Normal Capillary Refill, Normal Inspection, Normal Range of Motion. negative: Tender, Pedal Edema Integumentary: positive: Normal Color, Dry. negative: Jaundice, Rash Neurologic: positive: Fully Oriented, Alert, Normal Mood/Affect ED Treatment Course - LABORATORY CBC & Chemistry Diagram: 03/02/19 12:05 03/02/19 12:05 Medical Decision Making - Medical Decision Making 03/02/19 12:19 58 yo F w/ DM, HTN, HLD, GERD, anxiety comes in w/ chest pain, tightness, burping worse since last night. Will check a fingerstick, line and lab, check cardiac enzymes, do an EKG, CXR and likely admit 03/02/19 14:37 Labs reviewed, CXR reviewed. Pt feels a little better, she think it is her GERD , I explained to her that we want to make sure there is no cardiac pathology due to her comorbidities. Pt verbalizes understanding. Wll admit patient I spoke to Dr. Lofton who asked to admit under hospitalist service. 03/02/19 15:35 I spoke to the hospitalist who says we can admit under Dr. Yurkiw. Cheng. Pt admitted 03/02/19 16:24 Change of shift, care of patient signed over to hospitalist. pt is admitted to the hospital Discharge - Discharge Information Problems reviewed: Yes Clinical Impression/Diagnosis: Chest pain Qualifiers: Chest pain type: unspecified Qualified Code(s): R07.9 - Chest pain, unspecified Condition: Stable - Follow up/Referral - Patient Discharge Instructions - Post Discharge Activity
[2019-03-02] MEDS ORDERED: metFORMIN HCL 500 MG TABLET (FP) PO ONE (11:54)
[2019-03-02] MEDS ORDERED: ASPIRIN 81 MG CHEWABLE TABLETS PO ONE (11:54)
[2019-03-02] MEDS ORDERED: glipiZIDE 5 MG TABLET (FP) PO ONE (11:54)
[2019-03-02] MEDS ORDERED: metFORMIN HCL 500 MG TABLET (FP) ONE (12:22)
[2019-03-02] MEDS ORDERED: PANTOPRAZOLE SODIUM 40 MG VIAL ONE (12:22)
[2019-03-02] MEDS ORDERED: ASPIRIN 81 MG CHEWABLE TABLETS ONE (12:22)
[2019-03-02] MEDS ORDERED: glipiZIDE 5 MG TABLET (FP) ONE (12:22)
[2019-03-02 12:30] LABS: BASO % 0.2 % (0-2.0); EOS % 1.1 % (0-4.5); HEMATOCRIT 36.5 % (32.4-45.2); HEMOGLOBIN 11.8 GM/dL (10.7-15.3); LYMPH % 27.6 % (8-40); MCH 28.6 pg (25.7-33.7); MCHC 32.3 g/dl (32.0-36.0); MEAN CELL VOLUME 88.6 fl (80-96); MEAN PLT VOLUME 7.9 fl (7.5-11.1); MONO % 6.8 % (3.8-10.2); NEUT % 64.3 % (42.8-82.8); PLATELET COUNT 409 K/MM3 (134-434); RBC 4.12 M/mm3 (3.60-5.2); RDW 15.9 % (11.6-15.6); WHITE BLOOD COUNT 10.3 K/mm3 (4.0-10.0)
[2019-03-02 12:58] LABS: ALBUMIN 3.7 g/dl (3.4-5.0); BILIRUBIN,TOTAL 0.2 mg/dL (0.2-1); BLOOD UREA NITROGEN 14.9 mg/dL (7-18); CALCIUM 9.6 mg/dL (8.5-10.1); CREATININE 0.6 mg/dL (0.55-1.3); MAGNESIUM 1.9 mg/dL (1.8-2.4); POTASSIUM 4.1 mmol/L (3.5-5.1); TOT PROT 7.8 g/dl (6.4-8.2)
--- NOTE | 2019-03-02 14:54 | EKG ---
Test Reason : Blood Pressure : / mmHG Vent. Rate : 073 BPM Atrial Rate : 073 BPM P-R Int : 168 ms QRS Dur : 084 ms QT Int : 400 ms P-R-T Axes : 045 039 062 degrees QTc Int : 440 ms NORMAL SINUS RHYTHM NORMAL ECG WHEN COMPARED WITH ECG OF 04-SEP-2017 16:18, NO SIGNIFICANT CHANGE WAS FOUND Confirmed by Malorie Shoemaker ([id number]) on 03/02/2019 2:53:51 PM Referred By: Confirmed By:Malorie Shoemaker
--- NOTE | 2019-03-02 15:07 | PDOC ---
*Physical Exam - Vital Signs Last Vital Signs Temp Pulse Resp BP Pulse Ox 98.0 F 89 17 153/81 98 03/02/19 10:48 03/02/19 10:48 03/02/19 10:48 03/02/19 10:48 03/02/19 10:48 - Physical Exam General Appearance: Yes: Nourished Neck: positive: Trachea midline Respiratory/Chest: positive: Lungs Clear, Normal Breath Sounds Cardiovascular: positive: Regular Rhythm, Regular Rate, S1, S2 Gastrointestinal/Abdominal: positive: Tender, Flat, Soft Extremity: positive: Normal Capillary Refill Integumentary: positive: Normal Color, Dry, Warm ED Treatment Course - LABORATORY CBC & Chemistry Diagram: 03/02/19 12:05 03/02/19 12:05 - ADDITIONAL ORDERS Additional order review: Laboratory Results 03/02/19 03/02/19 03/02/19 12:38 12:05 12:05 Sodium 140 Potassium 4.1 Chloride 105 Carbon Dioxide 27 Anion Gap 8 BUN 14.9 Creatinine 0.6 Est GFR (CKD-EPI)AfAm 115.63 Est GFR (CKD-EPI)NonAf 99.77 POC Glucometer 136 Random Glucose 148 H Calcium 9.6 Phosphorus 4.0 Magnesium 1.9 Total Bilirubin 0.2 AST 9 L ALT 20 Alkaline Phosphatase 105 Creatine Kinase 85 Troponin I < 0.02 Total Protein 7.8 Albumin 3.7 Lipase 284 03/02/19 03/02/19 12:38 12:05 RBC 4.12 MCV 88.6 MCHC 32.3 RDW 15.9 H MPV 7.9 Neutrophils % 64.3 Lymphocytes % 27.6 D Monocytes % 6.8 Eosinophils % 1.1 Basophils % 0.2 POC Glucometer 136 - Medications Given in the ED: ED Medications Discontinued Medications Generic Name Dose Route Start Last Admin Trade Name Freq PRN Reason Stop Dose Admin Aspirin 81 mg 03/02/19 11:54 03/02/19 12:27 Asa - PO 03/02/19 11:55 81 mg ONCE ONE Administration Glipizide 5 mg 03/02/19 11:54 03/02/19 12:27 Glucotrol - PO 03/02/19 11:55 5 mg ONCE ONE Administration Famotidine/Sodium Chloride 20 mg in 50 mls @ 100 mls/hr 03/02/19 11:31 12:27 Pepcid 20 Mg Premixed Ivpb - IVPB 03/02/19 12:00 100 mls/hr ONCE ONE Administration Metformin HCl 500 mg 03/02/19 11:54 03/02/19 12:27 Glucophage - PO 03/02/19 11:55 500 mg ONCE ONE Administration Pantoprazole Sodium 40 mg 03/02/19 11:31 03/02/19 12:27 Protonix Iv IVPUSH 03/02/19 11:32 40 mg ONCE ONE Administration Medical Decision Making - Medical Decision Making 03/02/19 15:26 58-year-old female history of diabetes hypertension here today complaining of chest pain. Patient states she is been having much dyspepsia and burping she does have a history of GERD her chest pain was described as tightness left- sided rating to her left shoulder has since resolved denies any family history of heart disease does take a daily aspirin however she did not take her medications prior to arrival today On exam patient's cardiac lung exam is unremarkable extremities are without edema Differential includes GERD infection such as pneumonia no current risk factors for PE. Plan chest x-ray EKG CBC CMP and troponin. First troponin was negative patient was given an aspirin here in the ED EKG was unremarkable will admit to telemetry due to the risk factors of hypertension and diabetes for further work-up and rule out ACS 03/02/19 15:28 Patient seen in conjunction with the PA agree with her assessment and plan Discharge - Discharge Information Problems reviewed: Yes Clinical Impression/Diagnosis: Chest pain Condition: Stable - Follow up/Referral - Patient Discharge Instructions - Post Discharge Activity
[2019-03-02 15:43] LABS: EPI CELLS 0.8 /HPF (0-5/HPF); HYALINE CASTS 0 /lpf (0-8); PH,URINE 5.5 (5.0-8.0); URINE APPEARANCE CLEAR; URINE BACTERIA 12.4 /hpf (NEGATIVE); URINE BILIRUBIN NEGATIVE (NEGATIVE); URINE COLOR YELLOW; URINE GLUCOSE (UA) NEGATIVE (NEGATIVE); URINE KETONE NEGATIVE (NEGATIVE); URINE LEUK ESTERASE 1+ (NEGATIVE); URINE NITRITE NEGATIVE (NEGATIVE); URINE PROTEIN 2+ (NEGATIVE); URINE RBC 2 /hpf (0-4); URINE UROBILINOGEN 0.2 mg/dL (0.2-1.0); URINE WBC 3 /hpf (0-5)
--- NOTE | 2019-03-02 16:11 | HP ---
CHIEF COMPLAINT:Chest pain PCP:Rolly Cardio: Anu Endocrine: Peter HISTORY OF PRESENT ILLNESS: 58 yo F w/ a h/o NIDDM, HTN, HLD, anxiety, GERD comes in c/o 1-2 weeks of constant burping and L sided chest tightness but last night everything got worse and she started having palpitations. She says that it all started at her uncle's and never went away pt reports feeling like something is stuck in middle of throat after meals, pt was on protonix years ago, then was taken off, pt currently denies any chest tightness, No diaphoresis, no NVD, no abdominal pain, no change in appetite. No numbness/tingling (aside form her baseline neuropathy) ER course was notable for: (1)1st trop 0.02 (2) (3) Recent Travel: PAST MEDICAL HISTORY: NIDDM, HTN, HLD, anxiety, GERD PAST SURGICAL HISTORY: Social History: Smoking:former smoker Alcohol:denies Drugs: denies Allergies No Known Drug Allergies Allergy (Verified 01/15/19 14:52) IV CONTRAST Adverse Reaction (Uncoded 01/15/19 14:52) "BURNING SENSATION" HOME MEDICATIONS: Home Medications Medication Instructions Recorded Aspirin [ASA -] 81 mg PO DAILY 02/07/12 Citalopram Hydrobromide [Celexa -] 20 mg PO HS 02/07/12 Insulin Detemir [Levemir Flexpen] 60 unit SQ HS 02/07/12 Simvastatin [Zocor -] 20 mg PO HS 02/07/12 Sitagliptin Phosphate [Januvia] 100 mg PO DAILY 02/07/12 metFORMIN HCL [Metformin HCl] 500 mg PO BID 03/16/16 Glipizide [Glipizide ER] 2.5 mg PO BID 09/11/17 Valsartan [Diovan] 80 mg PO DAILY 09/11/17 Semaglutide [Ozempic] 1 mg SQ DAILY 03/02/19 REVIEW OF SYSTEMS CONSTITUTIONAL: Absent: fever, chills, diaphoresis, generalized weakness, malaise, loss of appetite, weight change HEENT: Absent: rhinorrhea, nasal congestion, throat pain, throat swelling, difficulty swallowing, mouth swelling, ear pain, eye pain, visual changes CARDIOVASCULAR: +palpations Absent: chest pain, syncope, irregular heart rate, lightheadedness, peripheral edema RESPIRATORY: Absent: cough, shortness of breath, dyspnea with exertion, orthopnea, wheezing, stridor, hemoptysis GASTROINTESTINAL:+burping, feels something is stuck in throat after meals Absent: abdominal pain, abdominal distension, nausea, vomiting, diarrhea, constipation, melena, hematochezia GENITOURINARY: Absent: dysuria, frequency, urgency, hesitancy, hematuria, flank pain, genital pain MUSCULOSKELETAL: Absent: myalgia, arthralgia, joint swelling, back pain, neck pain SKIN: Absent: rash, itching, pallor HEMATOLOGIC/IMMUNOLOGIC: Absent: easy bleeding, easy bruising, lymphadenopathy, frequent infections ENDOCRINE: Absent: unexplained weight gain, unexplained weight loss, heat intolerance, cold intolerance NEUROLOGIC: Absent: headache, focal weakness or paresthesias, dizziness, unsteady gait, seizure, mental status changes, bladder or bowel incontinence PSYCHIATRIC: Absent: anxiety, depression, suicidal or homicidal ideation, hallucinations. PHYSICAL EXAMINATION Vital Signs - 24 hr 03/02/19 10:48 Temperature 98.0 F Pulse Rate 89 Pulse Rate [ 89 Left Brachial] Respiratory 17 Rate Blood Pressure 153/81 Blood Pressure 153/81 [Left Arm] O2 Sat by Pulse 98 Oximetry (%) GENERAL: Awake, alert, and fully oriented, in no acute distress. HEAD: Normal with no signs of trauma. EYES: Pupils equal, round and reactive to light, extraocular movements intact, sclera anicteric, conjunctiva clear. No lid lag. EARS, NOSE, THROAT: Ears normal, nares patent, oropharynx clear without exudates. Moist mucous membranes. NECK: Normal range of motion, supple without lymphadenopathy, JVD, or masses. LUNGS: Breath sounds equal, clear to auscultation bilaterally. No wheezes, and no crackles. No accessory muscle use. HEART: Regular rate and rhythm, normal S1 and S2 without murmur, rub or gallop. ABDOMEN: Soft, nontender, not distended, normoactive bowel sounds, no guarding, no rebound, no masses. No hepatomegaly or splenomegaly. MUSCULOSKELETAL: Normal range of motion at all joints. No bony deformities or tenderness. No CVA tenderness. UPPER EXTREMITIES: 2+ pulses, warm, well-perfused. No cyanosis. No clubbing. No peripheral edema. LOWER EXTREMITIES: 2+ pulses, warm, well-perfused. No calf tenderness. No peripheral edema. NEUROLOGICAL: Cranial nerves II-XII intact. Normal speech. Normal gait. PSYCHIATRIC: Cooperative. Good eye contact. Appropriate mood and affect. SKIN: Warm, dry, normal turgor, no rashes or lesions noted, normal capillary refill. Laboratory Results - last 24 hr 03/02/19 03/02/19 03/02/19 12:05 12:05 12:05 WBC 10.3 H RBC 4.12 Hgb 11.8 Hct 36.5 MCV 88.6 MCH 28.6 MCHC 32.3 RDW 15.9 H Plt Count 409 D MPV 7.9 Absolute Neuts (auto) 6.6 Neutrophils % 64.3 Lymphocytes % 27.6 D Monocytes % 6.8 Eosinophils % 1.1 Basophils % 0.2 Nucleated RBC % 0 Sodium 140 Potassium 4.1 Chloride 105 Carbon Dioxide 27 Anion Gap 8 BUN 14.9 Creatinine 0.6 Est GFR (CKD-EPI)AfAm 115.63 Est GFR (CKD-EPI)NonAf 99.77 POC Glucometer Random Glucose 148 H Calcium 9.6 Phosphorus 4.0 Magnesium 1.9 Total Bilirubin 0.2 AST 9 L ALT 20 Alkaline Phosphatase 105 Creatine Kinase 85 Troponin I < 0.02 Total Protein 7.8 Albumin 3.7 Lipase 284 Urine Color Urine Appearance Urine pH Ur Specific [place] Urine Protein Urine Glucose (UA) Urine Ketones Urine Blood Urine Nitrite Urine Bilirubin Urine Urobilinogen Ur Leukocyte Esterase Urine WBC (Auto) Urine RBC (Auto) Urine Casts (Auto) U Epithel Cells (Auto) Urine Bacteria (Auto) 03/02/19 03/02/19 12:38 14:40 WBC RBC Hgb Hct MCV MCH MCHC RDW Plt Count MPV Absolute Neuts (auto) Neutrophils % Lymphocytes % Monocytes % Eosinophils % Basophils % Nucleated RBC % Sodium Potassium Chloride Carbon Dioxide Anion Gap BUN Creatinine Est GFR (CKD-EPI)AfAm Est GFR (CKD-EPI)NonAf POC Glucometer 136 Random Glucose Calcium Phosphorus Magnesium Total Bilirubin AST ALT Alkaline Phosphatase Creatine Kinase Troponin I Total Protein Albumin Lipase Urine Color Yellow Urine Appearance Clear Urine pH 5.5 Ur Specific [place] 1.015 Urine Protein 2+ H Urine Glucose (UA) Negative Urine Ketones Negative Urine Blood Negative Urine Nitrite Negative Urine Bilirubin Negative Urine Urobilinogen 0.2 Ur Leukocyte Esterase 1+ H Urine WBC (Auto) 3 Urine RBC (Auto) 2 Urine Casts (Auto) 0 U Epithel Cells (Auto) 0.8 Urine Bacteria (Auto) 12.4 ASSESSMENT/PLAN: Marisa Phoenix is a 58 yr old F, medical condition HTN, HLD, Anxiety, NIDDM , GERD admitted under observation for Admitting Diagnosis Chest pain Chronic Conditions HTN HLD Anxiety DM GERD A/P: #Chest pain r/o ACS -tele obs -serial trops -Cardio consult-Gitig -EKG- NSR -on asa, statin #GERD -will cont with IV Protonix #Mild leukocytosis, UTI? -monitor for now -afebrile, no urinary complaints -urine cx pending #HTN #HLD -c/w diovan, statin #DM -on levemir -will hold PO meds -ISC -monitor FS ACHS -diabetic diet #Anxiety-stable -c/w celexa #Hx of Thyroid Nodule -sees Endocrine Dr. Engle, last seen 01/07 -will check TSH Full Code DVT prophylaxis- Heparin SQ Visit type - Emergency Visit Emergency Visit: Yes ED Registration Date: 03/02/19 Care time: The patient presented to the Emergency Department on the above date and was hospitalized for further evaluation of their emergent condition. - New Patient This patient is new to me today: Yes Date on this admission: 03/02/19 - Critical Care Critical Care patient: No
[2019-03-02] MEDS: INSULIN SLIDING SCALE (NOVOLOG) 1 VIAL SQ SCH ×2 (16:51→21:44)
[2019-03-02] MEDS ORDERED: ATORVASTATIN CA 10 MG TABLET (FP) ONE (21:24)
[2019-03-02] MEDS ORDERED: HEPARIN NA (PORCINE) 5,000 UNITS/ML 1ML VIAL ONE (21:25)
[2019-03-02] MEDS ORDERED: CITALOPRAM HYDROBROMIDE 10 MG TABLET (FP) ONE (21:25)
[2019-03-02] MEDS: INSULIN (LEVEMIR) 100 UNITS/ML UNITS SQ SCH (21:43)
[2019-03-02] MEDS: HEPARIN NA (PORCINE) 5,000 UNITS/ML 1ML VIAL SQ SCH (21:43)
[2019-03-02] MEDS ORDERED: ATORVASTATIN CA 10 MG TABLET (FP) PO SCH (22:00)
[2019-03-02] MEDS ORDERED: CITALOPRAM HYDROBROMIDE 20 MG TABLET (FP) PO SCH (22:00)
[2019-03-03] MEDS: INSULIN SLIDING SCALE (NOVOLOG) 1 VIAL SQ SCH ×2 (06:25→11:39)
[2019-03-03 06:52] LABS: HEMOGLOBIN 10.9 GM/dL (10.7-15.3); MCH 29.2 pg (25.7-33.7); MCHC 32.9 g/dl (32.0-36.0); MEAN CELL VOLUME 88.6 fl (80-96); MEAN PLT VOLUME 7.9 fl (7.5-11.1); PLATELET COUNT 365 K/MM3 (134-434); RBC 3.72 M/mm3 (3.60-5.2); WHITE BLOOD COUNT 8.2 K/mm3 (4.0-10.0)
[2019-03-03 07:16] LABS: BLOOD UREA NITROGEN 15.4 mg/dL (7-18); CALCIUM 9.2 mg/dL (8.5-10.1); CREATININE 0.7 mg/dL (0.55-1.3); POTASSIUM 4.2 mmol/L (3.5-5.1)
[2019-03-03] MEDS ORDERED: PT OWN MED DRAWER 7, Y5N ONE (09:25)
[2019-03-03] MEDS: HEPARIN NA (PORCINE) 5,000 UNITS/ML 1ML VIAL SQ SCH (09:28)
[2019-03-03] MEDS: INSULIN (LEVEMIR) 100 UNITS/ML UNITS SQ SCH (09:28)
[2019-03-03] MEDS ORDERED: INSULIN (LEVEMIR) 100 UNITS/ML UNITS SQ ONE (09:32)
[2019-03-03] MEDS ORDERED: PANTOPRAZOLE SODIUM 40 MG VIAL IVPUSH SCH (10:00)
[2019-03-03] MEDS ORDERED: VALSARTAN 80 MG TABLET (UD) PO SCH (10:00)
[2019-03-03] MEDS ORDERED: PATIENT'S OWN MEDICATION (NON-FORMULARY) (Semaglutide [Ozempic] 1 MG) SQ SCH (10:00)
[2019-03-03] MEDS ORDERED: ASPIRIN 81 MG CHEWABLE TABLETS PO SCH (10:00)
--- NOTE | 2019-03-03 12:09 | CON.CARD ---
Consult Consult Specialty:: Cardiology Referred by:: Medicine Reason for Consultation:: chest tightness - History of Present Illness Chief Complaint: chest tightness, palps History of Present Illness: 58F h/o DM, HTN, HLD p/w burping, L sided chest tightness, palps since Monday. Has been under a lot of stress at home, went to a on Monday where she felt even more stressed and felt heart racing. Has had L side chest tightness on and off since then. Not exertiona, no dyspnea. Associated with burping. Used to be on protonix, not taking lately. Sees Dr. Brennan for cardio. Chest pain has resolved, wants to go home. Thinks she had stress test, echo in the last year. - Alcohol/Substance Use Hx Alcohol Use: No - Smoking History Smoking history: Never smoked Have you smoked in the past 12 months: No Aproximately how many cigarettes per day: 0 If you are a former smoker, when did you quit?: 1994 Home Medications - Allergies Allergies/Adverse Reactions: Allergies Allergy/AdvReac Type Severity Reaction Status Date / Time No Known Drug Allergies Allergy Verified 01/15/19 14:52 IV CONTRAST AdvReac Uncoded 01/15/19 14:52 - Home Medications Home Medications: Ambulatory Orders Aspirin [ASA -] 81 mg PO DAILY 02/07/12 Citalopram Hydrobromide [Celexa -] 20 mg PO HS 02/07/12 Insulin Detemir [Levemir Flexpen] 60 unit SQ HS 02/07/12 Simvastatin [Zocor -] 20 mg PO HS 02/07/12 Sitagliptin Phosphate [Januvia] 100 mg PO DAILY 02/07/12 metFORMIN HCL [Metformin HCl] 500 mg PO BID 03/16/16 Glipizide [Glipizide ER] 2.5 mg PO BID 09/11/17 Valsartan [Diovan] 80 mg PO DAILY 09/11/17 Semaglutide [Ozempic] 1 mg SQ DAILY 03/02/19 Family Medical History Family History: Unremarkable Review of Systems - Review of Systems Constitutional: reports: No Symptoms Eyes: reports: No Symptoms HENT: reports: No Symptoms Neck: reports: No Symptoms Cardiovascular: reports: No Symptoms Respiratory: reports: No Symptoms Gastrointestinal: reports: No Symptoms Genitourinary: reports: No Symptoms Musculoskeletal: reports: No Symptoms Integumentary: reports: No Symptoms Neurological: reports: No Symptoms Endocrine: reports: No Symptoms Hematology/Lymphatic: reports: No Symptoms Psychiatric: reports: No Symptoms Vital Signs: Vital Signs Temperature 98.0 F 03/03/19 07:00 Pulse Rate 89 03/03/19 07:00 Respiratory Rate 16 03/03/19 07:00 Blood Pressure 136/73 03/03/19 07:00 O2 Sat by Pulse Oximetry (%) 97 03/03/19 07:00 Constitutional: Yes: No Distress, Calm Eyes: Yes: Conjunctiva Clear HENT: Yes: Atraumatic, Normocephalic Neck: Yes: Supple, Trachea Midline Respiratory: Yes: Regular, CTA Bilaterally Gastrointestinal: Yes: Normal Bowel Sounds, Soft Cardiovascular: Yes: Regular Rate and Rhythm Extremities: No: Cold Edema: No Integumentary: No: Jaundice Neurological: Yes: Alert, Oriented Psychiatric: No: Agitated - Other Data Labs, Other Data: CBC, BMP 03/03/19 05:30 03/03/19 05:30 Troponin, BNP 03/02/19 03/02/19 12:05 19:15 Troponin I < 0.02 < 0.02 Troponin, BNP 03/02/19 03/02/19 12:05 19:15 Troponin I < 0.02 < 0.02 Assessment/Plan EKG sinus, nl intervals, no ischemic changes CXR: no acute process tele: sinus Chest pain, palps - note similar symptoms in 2014, evaluated by Dr. Brennan at that time - trop neg x2, no ischemic changes on EKG - unlikely ACS - atypical symptoms in setting of anxiety - wants to go home. advised to follow up with Dr. Brennan as outpatient to consider outpatient testing including holter given worsening palpitations, likely in setting of anxiety given recent stressors - history of burping also suggests GERD, manage per primary HTN - cont home meds HLD - cont statin DM - manage per primary stable for dc from cardiac perspective
--- NOTE | 2019-03-03 12:17 | DS ---
Physical Exam: SUBJECTIVE: Patient seen and examined OBJECTIVE: Vital Signs Period Temp Pulse Resp BP Sys/[place] Pulse Ox Last 24 Hr 98.0 F 89 16 136/73 97 PHYSICAL EXAM GENERAL: The patient is awake, alert, and fully oriented, in no acute distress. HEAD: Normal with no signs of trauma. EYES: PERRL, extraocular movements intact, sclera anicteric, conjunctiva clear. ENT: Ears normal, nares patent, oropharynx clear without exudates, moist mucous membranes. NECK: Trachea midline, full range of motion, supple. LUNGS: Breath sounds equal, clear to auscultation bilaterally, no wheezes, no crackles, no accessory muscle use. HEART: Regular rate and rhythm, S1, S2 without murmur, rub or gallop. ABDOMEN: Soft, nontender, nondistended, normoactive bowel sounds, no guarding, no rebound, no hepatosplenomegaly, no masses. EXTREMITIES: 2+ pulses, warm, well-perfused, no edema. NEUROLOGICAL: Cranial nerves II through XII grossly intact. Normal speech, gait not observed. PSYCH: Normal mood, normal affect. SKIN: Warm, dry, normal turgor, no rashes or lesions noted. LABS Laboratory Results - last 24 hr 03/02/19 03/02/19 03/02/19 12:05 12:05 12:05 WBC 10.3 H RBC 4.12 Hgb 11.8 Hct 36.5 MCV 88.6 MCH 28.6 MCHC 32.3 RDW 15.9 H Plt Count 409 D MPV 7.9 Absolute Neuts (auto) 6.6 Neutrophils % 64.3 Lymphocytes % 27.6 D Monocytes % 6.8 Eosinophils % 1.1 Basophils % 0.2 Nucleated RBC % 0 Sodium 140 Potassium 4.1 Chloride 105 Carbon Dioxide 27 Anion Gap 8 BUN 14.9 Creatinine 0.6 Est GFR (CKD-EPI)AfAm 115.63 Est GFR (CKD-EPI)NonAf 99.77 POC Glucometer Random Glucose 148 H Calcium 9.6 Phosphorus 4.0 Magnesium 1.9 Total Bilirubin 0.2 AST 9 L ALT 20 Alkaline Phosphatase 105 Creatine Kinase 85 Troponin I < 0.02 Total Protein 7.8 Albumin 3.7 Lipase 284 TSH Urine Color Urine Appearance Urine pH Ur Specific [place] Urine Protein Urine Glucose (UA) Urine Ketones Urine Blood Urine Nitrite Urine Bilirubin Urine Urobilinogen Ur Leukocyte Esterase Urine WBC (Auto) Urine RBC (Auto) Urine Casts (Auto) U Epithel Cells (Auto) Urine Bacteria (Auto) 03/02/19 03/02/19 03/02/19 12:38 14:40 16:47 WBC RBC Hgb Hct MCV MCH MCHC RDW Plt Count MPV Absolute Neuts (auto) Neutrophils % Lymphocytes % Monocytes % Eosinophils % Basophils % Nucleated RBC % Sodium Potassium Chloride Carbon Dioxide Anion Gap BUN Creatinine Est GFR (CKD-EPI)AfAm Est GFR (CKD-EPI)NonAf POC Glucometer 136 154 Random Glucose Calcium Phosphorus Magnesium Total Bilirubin AST ALT Alkaline Phosphatase Creatine Kinase Troponin I Total Protein Albumin Lipase TSH Urine Color Yellow Urine Appearance Clear Urine pH 5.5 Ur Specific [place] 1.015 Urine Protein 2+ H Urine Glucose (UA) Negative Urine Ketones Negative Urine Blood Negative Urine Nitrite Negative Urine Bilirubin Negative Urine Urobilinogen 0.2 Ur Leukocyte Esterase 1+ H Urine WBC (Auto) 3 Urine RBC (Auto) 2 Urine Casts (Auto) 0 U Epithel Cells (Auto) 0.8 Urine Bacteria (Auto) 12.4 03/02/19 03/02/19 03/03/19 19:15 21:32 05:30 WBC 8.2 RBC 3.72 Hgb 10.9 Hct 33.0 MCV 88.6 MCH 29.2 MCHC 32.9 RDW 16.0 H Plt Count 365 MPV 7.9 Absolute Neuts (auto) Neutrophils % Lymphocytes % Monocytes % Eosinophils % Basophils % Nucleated RBC % Sodium Potassium Chloride Carbon Dioxide Anion Gap BUN Creatinine Est GFR (CKD-EPI)AfAm Est GFR (CKD-EPI)NonAf POC Glucometer 283 Random Glucose Calcium Phosphorus Magnesium Total Bilirubin AST ALT Alkaline Phosphatase Creatine Kinase Troponin I < 0.02 Total Protein Albumin Lipase TSH 0.57 Urine Color Urine Appearance Urine pH Ur Specific [place] Urine Protein Urine Glucose (UA) Urine Ketones Urine Blood Urine Nitrite Urine Bilirubin Urine Urobilinogen Ur Leukocyte Esterase Urine WBC (Auto) Urine RBC (Auto) Urine Casts (Auto) U Epithel Cells (Auto) Urine Bacteria (Auto) 03/03/19 03/03/19 05:30 06:13 WBC RBC Hgb Hct MCV MCH MCHC RDW Plt Count MPV Absolute Neuts (auto) Neutrophils % Lymphocytes % Monocytes % Eosinophils % Basophils % Nucleated RBC % Sodium 139 Potassium 4.2 Chloride 106 Carbon Dioxide 26 Anion Gap 8 BUN 15.4 Creatinine 0.7 Est GFR (CKD-EPI)AfAm 109.91 Est GFR (CKD-EPI)NonAf 94.84 POC Glucometer 222 Random Glucose 244 H Calcium 9.2 Phosphorus Magnesium 2.0 Total Bilirubin AST ALT Alkaline Phosphatase Creatine Kinase Troponin I Total Protein Albumin Lipase TSH Urine Color Urine Appearance Urine pH Ur Specific [place] Urine Protein Urine Glucose (UA) Urine Ketones Urine Blood Urine Nitrite Urine Bilirubin Urine Urobilinogen Ur Leukocyte Esterase Urine WBC (Auto) Urine RBC (Auto) Urine Casts (Auto) U Epithel Cells (Auto) Urine Bacteria (Auto) HOSPITAL COURSE: Date of Admission:03/02/19 Date of Discharge: 03/03/19 Minutes to complete discharge: 33 Discharge Summary Problems reviewed: Yes Reason For Visit: CHEST PAIN Current Active Problems Chest pain (Acute) Condition: Stable - Instructions Diet, Activity, Other Instructions: You were seen in the ER during observation visit for chest pain and cleared for DC by cardiology 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 Please call for appointment You will continue your home medications as prescribed You will be prescribed protonix 20mg PO QD for GERD and should discuss with your primary if this helps your symptoms Other followups you should pursue are -sleep study -podiatry You should return to the ER with uncontrolled CP, SOB, or palpitations. Thank you for chosing [facility] Continue heart healthy diet, resume prior activity level Cleared to return to work Referrals: Mikaela Lofton [Primary Care Provider] - (Followup in 3-5 days) Bob Brennan MD [Staff Physician] - 1 Week Zion Felton MD [Staff Physician] - 1 Month (GERD) Param Moya MD [Staff Physician] - 1 Month (SUNITHA eval) Katiuska Garcia DPM [Staff Physician] - 1 Month (Podiatry eval for DM) - Home Medications Comprehensive Discharge Medication List: Ambulatory Orders Aspirin [ASA -] 81 mg PO DAILY 02/07/12 Citalopram Hydrobromide [Celexa -] 20 mg PO HS 02/07/12 Insulin Detemir [Levemir Flexpen] 60 unit SQ HS 02/07/12 Simvastatin [Zocor -] 20 mg PO HS 02/07/12 Sitagliptin Phosphate [Januvia] 100 mg PO DAILY 02/07/12 metFORMIN HCL [Metformin HCl] 500 mg PO BID 03/16/16 Glipizide [Glipizide ER] 2.5 mg PO BID 09/11/17 Valsartan [Diovan] 80 mg PO DAILY 09/11/17 Semaglutide [Ozempic] 1 mg SQ DAILY 03/02/19 This patient is new to me today: Yes Date on this admission: 03/03/19 Emergency Visit: Yes ED Registration Date: 03/02/19 Care time: The patient presented to the Emergency Department on the above date and was hospitalized for further evaluation of their emergent condition. Critical Care patient: No
[2019-03-03] MEDS ORDERED: CEPHALEXIN MONOHYDRATE 500 MG CAPSULE (UD) PO SCH (13:30)
[2019-03-03] MEDS ORDERED: PANTOPRAZOLE 20 MG TABLET (FP) PO SCH (13:30)
[2019-03-03] MEDS ORDERED: PANTOPRAZOLE 40 MG TABLET (FP) ONE (13:42)
[2019-03-03] MEDS ORDERED: CEPHALEXIN MONOHYDRATE 500 MG CAPSULE (UD) ONE (13:43)
[2019-03-03 15:07] VITALS: BP 134/67; PULSE 66; TEMP 98.1
--- NOTE | 2019-03-05 15:53 | EKG ---
Test Reason : Blood Pressure : / mmHG Vent. Rate : 073 BPM Atrial Rate : 073 BPM P-R Int : 164 ms QRS Dur : 076 ms QT Int : 408 ms P-R-T Axes : 037 024 065 degrees QTc Int : 449 ms POOR DATA QUALITY, INTERPRETATION MAY BE ADVERSELY AFFECTED NORMAL SINUS RHYTHM NONSPECIFIC T WAVE ABNORMALITY ABNORMAL ECG WHEN COMPARED WITH ECG OF 02-MAR-2019 10:38, NO SIGNIFICANT CHANGE WAS FOUND Confirmed by Mariano Brennan ([id number]) on 03/05/2019 3:53:15 PM Referred By: Confirmed By:Mariano Brennan
== END 2019-03-03 14:15 | disposition home or self-care (01) ==
LOC: JER 10:40 → JERBED 14:58
PROVIDERS: ADMIT Internal Medicine; ATTEND Internal Medicine
PROC: 3E033GC Introduction of Other Therapeutic Substance into Peripheral Vein, Percutaneous Approach (ICD-10-PCS; principal; 2019-03-02)
PROC: 3E013VG Introduction of Insulin into Subcutaneous Tissue, Percutaneous Approach (ICD-10-PCS; 2019-03-02)
PROC: 3E013GC Introduction of Other Therapeutic Substance into Subcutaneous Tissue, Percutaneous Approach (ICD-10-PCS; 2019-03-02)
DX: R07.89 Other chest pain (principal); R00.2 Palpitations; I10 Essential (primary) hypertension; E78.5 Hyperlipidemia, unspecified; E11.9 Type 2 diabetes mellitus without complications; K21.9 Gastro-esophageal reflux disease without esophagitis; F41.9 Anxiety disorder, unspecified; E04.1 Nontoxic single thyroid nodule; Z79.82 Long term (current) use of aspirin; Z79.84 Long term (current) use of oral hypoglycemic drugs; Z79.4 Long term (current) use of insulin; Z91.041 Radiographic dye allergy status
CPT/HCPCS: 36415; 71046-TC-FY; 80048; 80053; 81003; 82550; 82962; 83690; 83735; 84100; 84443; 84484; 85025; 85027; 87086; 93005; 93010; 96365; 96372; 96375; 99285-25; G0378; J1644

== ENCOUNTER 2019-06-06 20:39 | Emergency (ER) | payer OTHER ==
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
[2019-06-06 20:58] VITALS: BP 155/80; PULSE 87; TEMP 98.2; BMI 31.8
[2019-06-06] MEDS ORDERED: ACETAMINOPHEN 325 MG TABLET (FP) PO ONE (22:15)
[2019-06-06] MEDS ORDERED: ACETAMINOPHEN 325 MG TABLET (FP) ONE ×2 (22:18→22:21)
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
--- NOTE | 2019-06-06 22:42 | PDOC ---
*Physical Exam - Vital Signs Last Vital Signs Temp Pulse Resp BP Pulse Ox 98.2 F 87 17 155/80 100 06/06/19 20:56 06/06/19 20:56 06/06/19 20:56 06/06/19 20:56 06/06/19 20:56 ED Treatment Course - Medications Given in the ED: ED Medications Discontinued Medications Generic Name Dose Route Start Last Admin Trade Name Amada PRN Reason Stop Dose Admin Acetaminophen 975 mg 06/06/19 22:15 06/06/19 22:30 Tylenol - PO 06/06/19 22:16 975 mg ONCE ONE Administration Medical Decision Making - Medical Decision Making 06/06/19 22:41 Case reviewed, was available for consultation during clinical course Discharge - Discharge Information Problems reviewed: Yes Clinical Impression/Diagnosis: Elbow injury Qualifiers: Encounter type: initial encounter Laterality: left Qualified Code(s): S59.902A - Unspecified injury of left elbow, initial encounter Condition: Stable - Follow up/Referral Referrals: Mikaela Lofton [Primary Care Provider] - 2 Days Jas Serrano MD [Staff Physician] - 2 Days - Patient Discharge Instructions Patient Printed Discharge Instructions: DI for Elbow Sprain Additional Instructions: Thank you for choosing [facility]. It was a pleasure taking care of you. You were referred to orthopedics for further evaluation You may take Motrin 400 mg every 6 hours as needed for pain Return to the Emergency Department if your symptoms worsen or persist or have other concerning symptoms. - Post Discharge Activity
== END 2019-06-06 22:32 | disposition home or self-care (01) ==
LOC: JER 20:39
DX: S59.802A Other specified injuries of left elbow, initial encounter (principal); W22.8XXA Striking against or struck by other objects, initial encounter; Y93.89 Activity, other specified; Y92.512 Supermarket, store or market as the place of occurrence of the external cause; Y99.8 Other external cause status; I10 Essential (primary) hypertension; E78.5 Hyperlipidemia, unspecified; E11.9 Type 2 diabetes mellitus without complications; Z79.84 Long term (current) use of oral hypoglycemic drugs; K21.9 Gastro-esophageal reflux disease without esophagitis; F41.9 Anxiety disorder, unspecified
CPT/HCPCS: 73070-TC-LT-FY; 99282-25

== ENCOUNTER 2019-06-10 11:33 | Inpatient (IN) | payer OTHER ==
[2019-06-10] MEDS ORDERED: SODIUM CHLORIDE IV ONE (11:50)
[2019-06-10] MEDS ORDERED: ACETAMINOPHEN 1000 MG/100 ML VIAL (NON FORMULARY) IVPB ONE (11:51)
--- NOTE | 2019-06-10 11:54 | HP ---
Admitting History and Physical - Primary Care Physician PCP: Mikaela Lofton S - Admission Chief Complaint: fever cough History of Present Illness: 59 year old female with PMH o of IDDM, GERD, HLD, GERD, HTN, HLD,multi back trauma, anxiety, presents to the ED for 5 days of fever, cough, and myalgias despite azithromycin (2 days remaining as of today) and Tamiflu usage. Pt saw me in office on 06/07 with above was tachycardic and febrile and I sent her to ER (pt preferred [facility]) on 06/07 she went and she was sent home after IVF (labs OK , fever and HR imrpoved); However Patient had persistent fever to 102 degrees at home and states that she is taking 650 of Tylenol every 4-6 hours with only minor relief. Her cough is dry and consistent. She came back to ER twice ( Monday and Monday) but was sent home from ER each visit (I was not called by ER staff nor by pt for those 2 visits); last CXR showed possible PNA and she was called back to ER. Denies chest pain, headache, nausea, vomiting, diarrhea, presyncope, or other symptoms. History Source: Patient, Medical Record Limitations to Obtaining History: No Limitations - Past Medical History Cardiovascular: Yes: HTN, Hyperlipdemia Endocrine: Yes: Diabetes Mellitus - Smoking History Smoking history: Unknown if ever smoked Have you smoked in the past 12 months: No Aproximately how many cigarettes per day: 0 If you are a former smoker, when did you quit?: 1994 - Alcohol/Substance Use Hx Alcohol Use: No - Social History Usual Living Arrangement: Yes: With Spouse Do you think of yourself as: Straight/Heterosexual ADL: Independent History of Recent Travel: No Home Medications - Allergies Allergies/Adverse Reactions: Allergies Allergy/AdvReac Type Severity Reaction Status Date / Time No Known Drug Allergies Allergy Verified 06/10/19 11:42 IV CONTRAST AdvReac Uncoded 06/10/19 11:42 - Home Medications Home Medications: Ambulatory Orders Aspirin [ASA -] 81 mg PO DAILY 02/07/12 Citalopram Hydrobromide [Celexa -] 20 mg PO HS 02/07/12 Insulin Detemir [Levemir Flexpen] 38 unit SQ BID 02/07/12 Simvastatin [Zocor -] 40 mg PO HS 02/07/12 metFORMIN HCL [Metformin HCl] 500 mg PO BID 03/16/16 Semaglutide [Ozempic] 1 mg SQ WEEKLY 03/02/19 Bimatoprost [Lumigan] 1 drop OU HS 06/07/19 Insulin Sliding Scale [Novolog Vial Sliding Scale -] 0 units SQ ASDIR 06/07/19 Olmesartan Medoxomil 20 mg PO DAILY 06/07/19 Zolpidem Tartrate [Ambien] 10 mg PO HS 06/07/19 Azithromycin [Zithromax] 500 mg PO DAILY 06/10/19 Fluphenazine HCl 1 mg PO ASDIR 06/10/19 Glipizide [Glucotrol Xl] 5 mg PO BID 06/10/19 Family Medical History Family History: Unremarkable Review of Systems - Review of Systems Constitutional: reports: Chills, Diaphoresis, Fever, Loss of Appetite, Weakness (general). denies: Lethargy Eyes: denies: Blind Spots, Blurred Vision, Double Vision, Eye Pain, Photophobia HENT: reports: Throat Pain. denies: Difficult Swallowing, Ear Pain, Epistaxis Neck: denies: Decreased ROM, Lumps, Pain on Movement, Stiffness, Tenderness Cardiovascular: denies: Chest Pain, Palpitations, Shortness of Breath Respiratory: reports: Cough. denies: Hemoptysis, Orthopnea, PND, SOB, SOB on Exertion, Wheezing Gastrointestinal: denies: Abdominal Pain, Constipation, Diarrhea, Rectal Bleeding, Vomiting Genitourinary: denies: Dysuria, Flank Pain Musculoskeletal: denies: Back Pain, Joint Swelling Integumentary: denies: Eczema, Rash, Wound Neurological: denies: Change in LOC, Change in Speech, Confusion, Dizziness, Headache, Seizure, Syncope, Unsteady Gait Endocrine: denies: Intolerance to Cold, Intolerance to Heat, Unexplained Weight Gain, Unexplained Weight Loss Hematology/Lymphatic: reports: No Symptoms. denies: Easily Bruised, Excessive Bleeding Psychiatric: reports: Depression (chronic). denies: Altered Sleep Pattern, Anxiety, Suicidal Physical Examination Vital Signs: Vital Signs Temperature 101.7 F H 06/10/19 11:41 Pulse Rate 104 H 06/10/19 11:41 Respiratory Rate 18 06/10/19 11:41 Blood Pressure 118/65 06/10/19 11:41 O2 Sat by Pulse Oximetry (%) 97 06/10/19 11:41 Constitutional: Yes: No Distress, Calm Eyes: Yes: Conjunctiva Clear HENT: Yes: Atraumatic Neck: Yes: Supple Cardiovascular: Yes: Regular Rate and Rhythm Respiratory: Yes: CTA Bilaterally Gastrointestinal: Yes: Soft. No: Tenderness Renal/: No: Hematuria Musculoskeletal: No: Joint Stiffness, Joint Swelling Extremities: No: Cold, Cool, Cyanosis Edema: No Peripheral Pulses WNL: No Integumentary: No: Rash, Venous Stasis Changes Neurological: Yes: WNL, Alert, Oriented ...Motor Strength: WNL Psychiatric: Yes: WNL, Alert, Oriented. No: Agitated, Suicidal Ideation Imaging - Results Chest X-ray: Report Reviewed Other: Report Reviewed Assessment/Plan 59 year old female with PMH o of IDDM, GERD, HLD, GERD, HTN, HLD,multi back trauma, anxiety, presents to the ED for 5 days of fever, cough, and myalgias despite azithromycin (2 days remaining) and Tamiflu usage. CXR possible PNA admit; IV ATB ceftriaxone send cultures chest CT prognosis guarded d/w pt and staff
--- NOTE | 2019-06-10 11:56 | PDOC ---
History of Present Illness - General Chief Complaint: Revisit,Radiology Variance Stated Complaint: Cold Symptoms Time Seen by Provider: 06/10/19 11:54 - History of Present Illness Initial Comments: 59 year old female with PMH o of IDDM, GERD, HLD, GERD, HTN, HLD,multi back trauma, anxiety, presents to the ED for 5 days of fever, cough, and myalgias despite azithromycin (2 days remaining) and Tamiflu usage. Dr. Lofton got a CXR as an outpatient and believes there may be a basilar infiltrate. Patient has had fever to 102 degrees at home and states that she is taking 650 of Tylenol every 4-6 hours with only minor relief. Her cough is dry and consistent. Denies chest pain, headache, nausea, vomiting, diarrhea, presyncope , or other symptoms. 06/10/19 12:08 Past History - Past Medical History Allergies/Adverse Reactions: Allergies Allergy/AdvReac Type Severity Reaction Status Date / Time No Known Drug Allergies Allergy Verified 06/10/19 11:42 IV CONTRAST AdvReac Uncoded 06/10/19 11:42 Home Medications: Ambulatory Orders Aspirin [ASA -] 81 mg PO DAILY 02/07/12 Citalopram Hydrobromide [Celexa -] 20 mg PO HS 02/07/12 Insulin Detemir [Levemir Flexpen] 38 unit SQ BID 02/07/12 Simvastatin [Zocor -] 40 mg PO HS 02/07/12 metFORMIN HCL [Metformin HCl] 500 mg PO BID 03/16/16 Semaglutide [Ozempic] 1 mg SQ WEEKLY 03/02/19 Bimatoprost [Lumigan] 1 drop OU HS 06/07/19 Insulin Sliding Scale [Novolog Vial Sliding Scale -] 0 units SQ ASDIR 06/07/19 Olmesartan Medoxomil 20 mg PO DAILY 06/07/19 Zolpidem Tartrate [Ambien] 10 mg PO HS 06/07/19 Azithromycin [Zithromax] 500 mg PO DAILY 06/10/19 Fluphenazine HCl 1 mg PO ASDIR 06/10/19 Glipizide [Glucotrol Xl] 5 mg PO BID 06/10/19 Anemia: Yes Asthma: No Cancer: No Cardiac Disorders: Yes (? MURMUR) CVA: No COPD: No CHF: No Dementia: No Diabetes: Yes (IDDM) GI Disorders: Yes (GERD) Disorders: No HTN: Yes Hypercholesterolemia: Yes Liver Disease: No Psychiatric Problems: Yes (anxiety, panic attacks) Seizures: No Thyroid Disease: Yes (THYROID NODULE) - Surgical History Abdominal Surgery: No Appendectomy: No Cardiac Surgery: No Cholecystectomy: No Lung Surgery: No Neurologic Surgery: No Orthopedic Surgery: No - Immunization History Td Vaccination: Yes Immunization Up to Date: Yes - Psycho Social/Smoking Cessation Hx Smoking Status: No Smoking History: Unknown if ever smoked Years of Tobacco Use: 0 Have you smoked in the past 12 months: No Number of Cigarettes Smoked Daily: 0 If you are a former smoker, when did you quit?: 1994 Cigars Per Day: 0 Hx Alcohol Use: No Drug/Substance Use Hx: No Substance Use Type: None Hx Substance Use Treatment: No Review of Systems - Review of Systems Constitutional: Yes: Chills, Fever. No: Diaphoresis HEENTM: No: Tearing, Recent change in vision, Double Vision Respiratory: Yes: Cough, Shortness of Breath Cardiac (ROS): No: Chest Pain, Irregular Heart Rate, Lightheadedness, Palpitations, Chest Tightness ABD/GI: No: Diarrhea, Nausea, Vomiting : No: Burning, Dysuria Musculoskeletal: Yes: Back Pain, Joint Pain, Muscle Pain Integumentary: No: Erythema, Flushing, Lesions Neurological: No: Headache, Numbness, Paresthesia Psychiatric: No: Anxiety, Depression Hematologic/Lymphatic: No: Anemia, Blood Clots, Easy Bleeding *Physical Exam - Vital Signs Last Vital Signs Temp Pulse Resp BP Pulse Ox 101.7 F H 104 H 18 118/65 97 06/10/19 11:41 06/10/19 11:41 06/10/19 11:41 06/10/19 11:41 06/10/19 11:41 - Physical Exam General Appearance: Yes: Nourished, Appropriately Dressed. No: Apparent Distress HEENT: positive: EOMI, AMELIA. negative: Normal ENT Inspection (dry mucous membranes) Neck: positive: Trachea midline, Normal Thyroid, Supple. negative: Tender, Rigid Respiratory/Chest: positive: Lungs Clear. negative: Chest Tender, Normal Breath Sounds (slightly decreased at lung bases), Respiratory Distress, Accessory Muscle Use Cardiovascular: positive: Regular Rhythm, Tachycardia. negative: Regular Rate Gastrointestinal/Abdominal: positive: Normal Bowel Sounds, Flat, Soft. negative : Tender Lymphatic: negative: Adenopathy, Tenderness Musculoskeletal: positive: Normal Inspection. negative: Decreased Range of Motion Extremity: positive: Normal Capillary Refill, Normal Inspection, Normal Range of Motion. negative: Tender Integumentary: positive: Normal Color, Dry, Warm Neurologic: positive: Fully Oriented, Alert, Normal Mood/Affect, Normal Response , Motor Strength 09/23 ED Treatment Course - LABORATORY CBC & Chemistry Diagram: 06/10/19 11:50 06/10/19 11:50 - RADIOLOGY Radiology Studies Ordered: Category Date Time Status CHEST X-RAY PORTABLE* [RAD] Stat Radiology 06/10/19 11:51 Ordered Medical Decision Making - Medical Decision Making 59 year old female presenting with fevers, chills, and cough for the past week. CXR demonstrating bibasilar infiltrate, no WBD but VS demonstrating tachycardia and fever. Spoke to Dr. Lofton and she will admit for pneumonia. Given Ceftriaxone, 1 G Ofirmev, and 2 L NS in ED with good relief of symptoms. Patient admitted in stable condition. 06/10/19 14:21 Discharge - Discharge Information Problems reviewed: Yes Clinical Impression/Diagnosis: Sepsis due to pneumonia Condition: Stable Disposition: HOME - Admission Yes - Follow up/Referral - Patient Discharge Instructions - Post Discharge Activity
[2019-06-10] MEDS ORDERED: CEFTRIAXONE 1 GM in DEXTROSE 5%-WATER - 50 ML IVPB SCH (12:00)
[2019-06-10] MEDS ORDERED: PATIENT'S OWN MEDICATION (NON-FORMULARY) (Semaglutide [Ozempic] 1 MG) SQ SCH (12:00)
[2019-06-10] MEDS ORDERED: ACETAMINOPHEN INJECTION 100 ML IVPB ONE (12:07)
[2019-06-10 12:15] LABS: BASO % 0.3 % (0-2.0); HEMATOCRIT 31.7 % (32.4-45.2); HEMOGLOBIN 10.4 GM/dL (10.7-15.3); MCH 28.5 pg (25.7-33.7); MCHC 32.7 g/dl (32.0-36.0); MEAN CELL VOLUME 87.3 fl (80-96); MEAN PLT VOLUME 8.4 fl (7.5-11.1); MONO % 10.7 % (3.8-10.2); PLATELET COUNT 191 K/MM3 (134-434); RBC 3.63 M/mm3 (3.60-5.2); RDW 15.6 % (11.6-15.6); WHITE BLOOD COUNT 3.5 K/mm3 (4.0-10.0)
[2019-06-10] MEDS ORDERED: cefTRIAXone SODIUM 1 GM VIAL ONE (12:22)
[2019-06-10 12:34] LABS: VENOUS PC02 37.3 mmHg (38-52); VENOUS PH 7.44 (7.31-7.41); VENOUS PO2 < 49 mmHg (28-48)
[2019-06-10 12:39] LABS: ALBUMIN 3.3 g/dl (3.4-5.0); ALK PHOS 91 U/L (45-117); ANION GAP 7 MMOL/L (8-16); BILIRUBIN,TOTAL 0.1 mg/dL (0.2-1); BLOOD UREA NITROGEN 14.1 mg/dL (7-18); CALCIUM 8.3 mg/dL (8.5-10.1); CHLORIDE 103 mmol/L (98-107); CO2 25 mmol/L (21-32); CREATININE 0.7 mg/dL (0.55-1.3); GLUCOSE,RANDOM 331 mg/dL (74-106); SGOT/AST 32 U/L (15-37); SGPT/ALT 34 U/L (13-61); SODIUM 135 mmol/L (136-145)
[2019-06-10 12:43] LABS: INR 1.2 (0.83-1.09); PROTHROMBIN TIME (PATIENT) 14.2 SEC (9.7-13.0)
[2019-06-10 12:46] LABS: ACTIVATED PTT 37.4 SECONDS (25.2-36.5)
--- NOTE | 2019-06-10 12:48 | PDOC ---
Attending Attestation - Resident Resident Name: Kelly Alvarez - ED Attending Attestation I have performed the following: I have examined & evaluated the patient, The case was reviewed & discussed with the resident, I agree w/resident's findings & plan, Exceptions are as noted - HPI HPI: 06/10/19 14:12 59 years old with past medical history significant for insulin-dependent diabetes GERD hyperlipidemia hypertension presents with 5-day history of fever cough myalgias was on azithromycin Tamiflu Sent to ED for persistent fevers and concern of bibasilar infiltrates on chest x -ray - Physicial Exam PE: 06/10/19 16:26 Vitals: Triage Vital signs reviewed General Appearance: No acute distress, well nourished well developed, Head: Atraumatic, Eyes: Pupils equal reactive round, extraocular movement intact Cardiac: Regular rate and rhythym, no murmurs, no rubs, no gallops, Lungs: Crackles at the bases bilaterally, Abdomen: Soft, non distended, normal bowel sounds, non tender to palpation Skin: Warm and dry, no rashes or lesions, no rash, no petechiae Psych: Normal mood, normal affect - Medical Decision Making 06/10/19 14:11 Failure of outpatient antibiotics with bibasilar infiltrates on x-ray broad- spectrum antibiotics ordered We will admit to hospital for further management.
[2019-06-10 13:31] LABS: EPI CELLS 1.3 /HPF (0-5/HPF); HYALINE CASTS 0 /lpf (0-8); URINE APPEARANCE CLEAR; URINE BACTERIA 35.3 /hpf (NEGATIVE); URINE BILIRUBIN NEGATIVE (NEGATIVE); URINE COLOR YELLOW; URINE GLUCOSE (UA) 3+ (NEGATIVE); URINE KETONE TRACE (NEGATIVE); URINE LEUK ESTERASE NEGATIVE (NEGATIVE); URINE NITRITE NEGATIVE (NEGATIVE); URINE PROTEIN 2+ (NEGATIVE); URINE RBC 1 /hpf (0-4); URINE UROBILINOGEN 0.2 mg/dL (0.2-1.0); URINE WBC 1 /hpf (0-5)
--- NOTE | 2019-06-10 16:00 | PN ---
Progress Note (short form) - Note Progress Note: ID consult dictated imp/reccd 59 yo female seen in ED originally on 06/06 for elbow injury- hit by shopping cart she returned on 06/07 with cough, fever and myalgia, influenza screen negative she was started on zithromax-now day #4 she continued to have fever and cough no sob came back to ED 06/08 and again today cxray bibasilar infiltrates versus atelectasis she reports everyone has been sick at home most recently her daughter has "flu" last week and her grandbaby had a "cold" diarrhea non bloody yesterday and again today no flu vaccine this year currently resting comfortably pulse ox 96% alert lungs with bibasilar crackles- left greater then right no travel she is on day #4 zithromax influenza screen negative times 2 ?CAP versus viral illness screen for RSV and resp virus panel (pcr) f/u cultures (blood and sputum) check urinary antigens chest ct agree with ceftriaxone Problem List - Problems (1) Fever Code(s): R50.9 - FEVER, UNSPECIFIED (2) Pneumonia Code(s): J18.9 - PNEUMONIA, UNSPECIFIED ORGANISM
[2019-06-10] MEDS: metFORMIN HCL 500 MG TABLET (FP) PO SCH (17:22)
[2019-06-10] MEDS: INSULIN SLIDING SCALE (NOVOLOG) 1 VIAL SQ SCH ×2 (17:23→21:34)
--- NOTE | 2019-06-10 17:47 | CONS ---
INFECTIOUS DISEASE CONSULTATION DATE OF CONSULTATION: DATE OF DICTATION: 06/10/2019 HISTORY: This is a 59-year-old woman who was originally seen in the emergency room on June 06 when she sustained a left elbow injury when she was hit by a shopping cart. She was discharged home that same day. She then presented the with complaints of cough, myalgia, and fever. She had Influenza screen that was negative. She was started on Zithromax, which she started on the . She returned again on the complaining of cough and fever. During each ER visit, she was noted to have fever. She had a chest x-ray on the that showed bibasilar infiltrates versus atelectasis. She was to continue on her Zithromax, which she did. She returns today, which is day 4 of her Zithromax with continued cough and fevers. She reports she has much less myalgia than she did when all this started last week. She did not have a flu shot. She has had 2 Influenza screens that are negative. Her whole family has been sick including her daughter who "had the flu last week" as well as her grandchild who had a bad cold. Yesterday, she had 3 episodes of nonbloody diarrhea. There was no accompanying abdominal pain, and today she had 6 episodes. She is now resting comfortably in bed. PAST MEDICAL HISTORY: Notable for lop-atsbwns-azzcegzdt diabetes, hypertension, hyperlipidemia, anxiety, and GERD. She has a history of a thyroid nodule in the past. SURGICAL HISTORY: She reports she has had tooth surgery many years ago as well as a breast biopsy x2 in the past. No surgery in the last 2 years. SOCIAL HISTORY: She lives at home with her . She does not work. There is no history of cigarette or substance use, and she has not travelled. Her ill contacts are as per HPI. She did not get an influenza vaccine this year. REVIEW OF SYSTEMS: Notable for the diarrhea, the nonproductive cough. No hemoptysis. No blood in her stools. No abdominal pain. She does note that she has some mid epigastric discomfort from coughing. PHYSICAL EXAMINATION: General: She is awake and alert and looks quite comfortable. Vital Signs: Her maximum temperature is 101.7, repeat is now 99.2 with a pulse of 89, blood pressure is 114/50. She is saturating 96% on room air. HEENT: She is normocephalic. Her eyes are anicteric. She has no thrush. Neck: Supple. Lungs: Have crackles at both bases, left greater than right. Heart: Regular rate and rhythm. She has a soft 2/6 systolic murmur. Abdomen: Soft, nontender. Extremities: Without edema. She has no swelling or erythema of her elbow. DIAGNOSTIC DATA: Her white count is 3.5, hemoglobin 10.4, platelets are 191. Her chemistries; BUN 14, creatinine 0.7 with normal liver function tests. She has an elevated CPK of 863. Her Influenza screen has been done twice now, on the when this began and then today, and it is negative. Blood cultures have been sent as well as a urine culture. Chest x-ray, a portable, was repeated today and is read as may have early bibasilar infiltrates on x-ray. In summary, this is a 59-year-old woman with fever and cough. She is on day 4 of Zithromax with a negative Influenza screen x2. Question whether this is community-acquired pneumonia versus viral illness. I would screen her for RSV and obtain a respiratory virus panel PCR. Would follow up the blood and sputum cultures. Would check urinary antigens. Consider a chest CT. Would agree with ceftriaxone as she has completed a 4-day course of Zithromax. Of note, she is not hypoxic and appears quite comfortable. Further recommendations to follow. AARON CHUNG M.D. [id number]
[2019-06-10 18:03] VITALS: BMI 32.1
[2019-06-10] MEDS: glipiZIDE-XL 5 MG TAB.ER.24 PO SCH (19:46)
[2019-06-10] MEDS ORDERED: INSULIN (NOVOLOG) ASPART 100 UNITS/ML 10ML VIAL ONE (20:10)
[2019-06-10] MEDS: HEPARIN NA (PORCINE) 5,000 UNITS/ML 1ML VIAL SQ SCH (21:30)
[2019-06-10] MEDS: ATORVASTATIN CA 20 MG TABLET (FP) PO SCH (21:31)
[2019-06-10] MEDS: CITALOPRAM HYDROBROMIDE 20 MG TABLET PO SCH (21:31)
[2019-06-10] MEDS: INSULIN (LEVEMIR) 100 UNITS/ML UNITS SQ SCH (21:36)
[2019-06-10] MEDS: ACETAMINOPHEN 325 MG TABLET (FP) PO PRN (21:59)
[2019-06-10] MEDS: LATANOPROST 0.005% OPHTH SOLN 2.5ML BOTTLE OU SCH (22:48)
[2019-06-11] MEDS ORDERED: DOXYCYCLINE HYCLATE 100 MG VIAL ONE ×3 (02:10→20:45)
[2019-06-11] MEDS ORDERED: DEXTROSE 5%-WATER 100 ML IVPB ONE ×5 (02:11→20:45)
[2019-06-11] MEDS: OSELTAMIVIR PHOSPHATE 75 MG CAPSULE PO SCH ×2 (02:23→09:57)
[2019-06-11] MEDS: DOXYCYCLINE INJECTION 100 MG in DEXTROSE 5%-WATER 100 ML IVPB SCH ×3 (02:24→21:19)
[2019-06-11] MEDS: ACETAMINOPHEN 325 MG TABLET (FP) PO PRN ×2 (05:48→21:20)
[2019-06-11] MEDS: metFORMIN HCL 500 MG TABLET (FP) PO SCH ×2 (06:05→16:59)
[2019-06-11] MEDS: glipiZIDE-XL 5 MG TAB.ER.24 PO SCH ×3 (06:05→17:55)
--- NOTE | 2019-06-11 06:42 | PN ---
Progress Note, Physician Chief Complaint: in bed NAD but had fever again, also some diarrhea nonbloody some headaches b/o cough bout no nuchal rigidity - Current Medication List Current Medications: Active Medications Acetaminophen (Tylenol -) 650 mg PO Q6H PRN PRN Reason: FEVER Last Admin: 06/11/19 05:48 Dose: 650 mg Aspirin (Asa -) 81 mg PO DAILY [facility] Atorvastatin Calcium (Lipitor -) 20 mg PO HS [facility] Last Admin: 06/10/19 21:31 Dose: Not Given Citalopram Hydrobromide (Celexa -) 20 mg PO HS [facility] Last Admin: 06/10/19 21:31 Dose: 20 mg Fluphenazine HCl (Prolixin) 1 mg PO ASDIR [place] Glipizide (Glucotrol Xl -) 5 mg PO BIDAC [facility] Last Admin: 06/11/19 06:05 Dose: 5 mg Heparin Sodium (Porcine) (Heparin -) 5,000 unit SQ BID [facility] Last Admin: 06/10/19 21:30 Dose: 5,000 unit Ceftriaxone Sodium 2 gm/ (Dextrose) 100 mls @ 200 mls/hr IVPB DAILY [facility]; Protocol Doxycycline Hyclate 100 mg/ (Dextrose) 100 mls @ 100 mls/hr IVPB BID [facility] Last Admin: 06/11/19 02:24 Dose: 50 mls/hr Insulin Aspart (Novolog Vial Sliding Scale -) 1 vial SQ ACHS [facility]; Protocol Last Admin: 06/10/19 21:34 Dose: 4 unit Insulin Detemir (Levemir Vial) 30 units SQ 0700,2200 [facility] Last Admin: 06/10/19 21:36 Dose: 30 units Latanoprost (Xalatan 0.005% Eye Drops -) 1 drop OU HS [facility] Last Admin: 06/10/19 22:48 Dose: 1 drop Metformin HCl (Glucophage -) 500 mg PO BIDAC [facility] Last Admin: 06/11/19 06:05 Dose: 500 mg Non-Formulary Medication (Semaglutide [Ozempic]) 1 mg SQ WEEKLY [facility] Oseltamivir Phosphate (Tamiflu -) 75 mg PO BID [facility] Stop: 06/16/19 01:44 Last Admin: 06/11/19 02:23 Dose: 75 mg Valsartan (Diovan -) 80 mg PO DAILY [facility] - Objective Vital Signs: Vital Signs Temperature 99.7 F H 06/11/19 02:28 Pulse Rate 95 H 06/11/19 02:28 Respiratory Rate 20 06/11/19 02:28 Blood Pressure 130/66 06/11/19 02:28 O2 Sat by Pulse Oximetry (%) 96 06/10/19 21:00 Constitutional: Yes: No Distress, Calm Eyes: Yes: Conjunctiva Clear HENT: Yes: Atraumatic Neck: Yes: Supple Cardiovascular: Yes: Regular Rate and Rhythm Respiratory: Yes: CTA Bilaterally Gastrointestinal: Yes: Soft. No: Tenderness Genitourinary: No: Hematuria Musculoskeletal: No: Joint Stiffness, Joint Swelling Extremities: No: Cold, Cool, Cyanosis Edema: No Integumentary: No: Rash, Venous Stasis Changes Neurological: Yes: WNL, Alert, Oriented ...Motor Strength: WNL Psychiatric: Yes: WNL, Alert, Oriented. No: Agitated, Suicidal Ideation Labs: CBC, BMP 06/10/19 11:50 06/10/19 11:50 INR, PTT INR 1.20 (0.83-1.09) H 06/10/19 11:50 - ....Imaging Other: Report Reviewed Assessment/Plan 59 year old female with PMH o of IDDM, GERD, HLD, GERD, HTN, HLD,multi back trauma, anxiety, presents to the ED for 5 days of fever, cough, and myalgias despite azithromycin and Tamiflu usage. CXR possible PNA admit; IV ATB ceftriaxone send cultures ID consult appreciated send stools for CDiff O/p Cx prognosis guarded d/w pt and staff
[2019-06-11] MEDS: INSULIN SLIDING SCALE (NOVOLOG) 1 VIAL SQ SCH ×4 (07:01→21:26)
[2019-06-11] MEDS: INSULIN (LEVEMIR) 100 UNITS/ML UNITS SQ SCH ×2 (07:02→21:27)
[2019-06-11 09:46] LABS: BASO % 0.5 % (0-2.0); HEMATOCRIT 33.8 % (32.4-45.2); HEMOGLOBIN 11.1 GM/dL (10.7-15.3); LYMPH % 28.9 % (8-40); MCH 28.6 pg (25.7-33.7); MEAN CELL VOLUME 86.8 fl (80-96); MEAN PLT VOLUME 8.3 fl (7.5-11.1); MONO % 7.1 % (3.8-10.2); NEUT % 63.5 % (42.8-82.8); PLATELET COUNT 239 K/MM3 (134-434); RBC 3.89 M/mm3 (3.60-5.2); RDW 15.2 % (11.6-15.6)
[2019-06-11] MEDS: VALSARTAN 80 MG TABLET (UD) PO SCH (09:56)
[2019-06-11] MEDS: ASPIRIN 81 MG CHEWABLE TABLETS PO SCH (09:56)
[2019-06-11] MEDS: CEFTRIAXONE 2 GM in DEXTROSE 5%-WATER 100 ML IVPB SCH (09:58)
[2019-06-11] MEDS: HEPARIN NA (PORCINE) 5,000 UNITS/ML 1ML VIAL SQ SCH ×2 (09:58→21:25)
[2019-06-11] MEDS ORDERED: CEFTRIAXONE 1 GM in DEXTROSE 5%-WATER - 50 ML IVPB SCH (10:00)
[2019-06-11] MEDS ORDERED: VALSARTAN 160 MG TABLET (UD) PO SCH (10:00)
[2019-06-11 10:40] LABS: ALBUMIN 3.3 g/dl (3.4-5.0); ALK PHOS 90 U/L (45-117); ANION GAP 6 MMOL/L (8-16); BILIRUBIN,TOTAL 0.4 mg/dL (0.2-1); BLOOD UREA NITROGEN 7.9 mg/dL (7-18); CALCIUM 8.9 mg/dL (8.5-10.1); CHLORIDE 106 mmol/L (98-107); CO2 26 mmol/L (21-32); CREATININE 0.6 mg/dL (0.55-1.3); GLUCOSE,RANDOM 162 mg/dL (74-106); POTASSIUM 3.4 mmol/L (3.5-5.1); SGOT/AST 41 U/L (15-37); SGPT/ALT 42 U/L (13-61); SODIUM 138 mmol/L (136-145); TOT PROT 7.6 g/dl (6.4-8.2)
--- NOTE | 2019-06-11 11:30 | EKG ---
Test Reason : Blood Pressure : / mmHG Vent. Rate : 096 BPM Atrial Rate : 096 BPM P-R Int : 162 ms QRS Dur : 082 ms QT Int : 358 ms P-R-T Axes : 071 018 065 degrees QTc Int : 452 ms NORMAL SINUS RHYTHM POSSIBLE ANTERIOR INFARCT , AGE UNDETERMINED ABNORMAL ECG WHEN COMPARED WITH ECG OF 08-JUN-2019 02:53, PREMATURE SUPRAVENTRICULAR COMPLEXES ARE NO LONGER PRESENT Confirmed by Hilario Taylor MD ([id number]) on 06/11/2019 11:30:07 AM Referred By: Confirmed By:Hilario Taylor MD
[2019-06-11] MEDS: POTASSIUM CHLORIDE 10 MEQ in SODIUM CHLORIDE 1,000 ML IVPB SCH (14:00)
--- NOTE | 2019-06-11 14:07 | PN ---
Progress Note (short form) - Note Progress Note: less cough less myalgia chest ct with LLL and RML infiltrates looks comfortable +diarrhea nonbloody Vital Signs Period Temp Pulse Resp BP Sys/Molina Pulse Ox Last 24 Hr 98.6 F-103.0 F 88-106 18-20 113-130/50-77 96-96 cor-rrr lungs bibasilar crackles abd soft,nt ext no edema CBC, BMP 06/11/19 09:15 06/11/19 09:15 Microbiology 06/10/19 20:30 Urine For Antigen Detection Legionella Antigen - Final 06/10/19 20:30 Urine For Antigen Detection Streptococcus pneumoniae Antigen (M - Final 06/10/19 12:10 Blood - Peripheral Venous Blood Culture - Preliminary NO GROWTH OBTAINED AFTER 24 HOURS, INCUBATION TO CONTINUE FOR 4 DAYS. 06/10/19 11:50 Blood - Peripheral Venous Blood Culture - Preliminary NO GROWTH OBTAINED AFTER 24 HOURS, INCUBATION TO CONTINUE FOR 4 DAYS. 06/10/19 12:28 Urine - Urine Clean Catch Urine Culture - Final Normal Urogenital Danuta a/p CAP- continue rocephin/doxy diarrhea- send stools for wbc and culture, cdiff elevated cpk- start IVF (recxeived iv in ED yesterday) antigens negative rsv negative influenza antigen negative times 2 Problem List - Problems (1) Fever Code(s): R50.9 - FEVER, UNSPECIFIED (2) Pneumonia Code(s): J18.9 - PNEUMONIA, UNSPECIFIED ORGANISM
[2019-06-11] MEDS ORDERED: PT OWN MED DRAWER 7, Y5N ONE ×2 (16:55→17:30)
[2019-06-11] MEDS: LACTOBACILLUS ACIDOPHILUS 1 TABLET PO SCH (16:59)
[2019-06-11] MEDS: CITALOPRAM HYDROBROMIDE 20 MG TABLET PO SCH (21:20)
[2019-06-11] MEDS: ATORVASTATIN CA 20 MG TABLET (FP) PO SCH (21:20)
[2019-06-11] MEDS: LATANOPROST 0.005% OPHTH SOLN 2.5ML BOTTLE OU SCH (21:29)
[2019-06-12] MEDS: metFORMIN HCL 500 MG TABLET (FP) PO SCH ×2 (06:06→17:52)
[2019-06-12] MEDS: glipiZIDE-XL 5 MG TAB.ER.24 PO SCH ×2 (06:06→17:52)
[2019-06-12] MEDS: INSULIN SLIDING SCALE (NOVOLOG) 1 VIAL SQ SCH ×4 (06:06→21:48)
[2019-06-12] MEDS: INSULIN (LEVEMIR) 100 UNITS/ML UNITS SQ SCH ×2 (06:06→21:49)
[2019-06-12 08:28] LABS: BASO % 0.3 % (0-2.0); HEMATOCRIT 31.9 % (32.4-45.2); HEMOGLOBIN 10.7 GM/dL (10.7-15.3); LYMPH % 25.6 % (8-40); MCH 28.9 pg (25.7-33.7); MCHC 33.5 g/dl (32.0-36.0); MEAN CELL VOLUME 86.4 fl (80-96); MEAN PLT VOLUME 8.4 fl (7.5-11.1); NEUT % 64.1 % (42.8-82.8); PLATELET COUNT 224 K/MM3 (134-434); RBC 3.69 M/mm3 (3.60-5.2); RDW 15.5 % (11.6-15.6); WHITE BLOOD COUNT 5.5 K/mm3 (4.0-10.0)
[2019-06-12] MEDS ORDERED: VANCOMYCIN 1,000 MG in DEXTROSE 5%-WATER - 250 ML IVPB SCH (09:00)
[2019-06-12 09:04] LABS: ALBUMIN 3.2 g/dl (3.4-5.0); ALK PHOS 79 U/L (45-117); ANION GAP 8 MMOL/L (8-16); BILIRUBIN,TOTAL 0.4 mg/dL (0.2-1); BLOOD UREA NITROGEN 6.1 mg/dL (7-18); CALCIUM 8.8 mg/dL (8.5-10.1); CHLORIDE 107 mmol/L (98-107); CO2 22 mmol/L (21-32); CREATININE 0.6 mg/dL (0.55-1.3); GLUCOSE,RANDOM 219 mg/dL (74-106); POTASSIUM 3.8 mmol/L (3.5-5.1); SGOT/AST 36 U/L (15-37); SGPT/ALT 38 U/L (13-61); SODIUM 138 mmol/L (136-145); TOT PROT 7.2 g/dl (6.4-8.2)
--- NOTE | 2019-06-12 09:54 | PN ---
Progress Note, Physician Chief Complaint: had more diarrhea yesterday and today; fever 101.7 on ceftriaxone and doxycycline cultures so far negative but this am 1 blood cx + GPCC d/w ID will add vanco - Current Medication List Current Medications: Active Medications Acetaminophen (Tylenol -) 650 mg PO Q6H PRN PRN Reason: FEVER Last Admin: 06/11/19 21:20 Dose: 650 mg Aspirin (Asa -) 81 mg PO DAILY [facility] Last Admin: 06/11/19 09:56 Dose: 81 mg Atorvastatin Calcium (Lipitor -) 20 mg PO HS [facility] Last Admin: 06/11/19 21:20 Dose: Not Given Citalopram Hydrobromide (Celexa -) 20 mg PO HS [facility] Last Admin: 06/11/19 21:20 Dose: 20 mg Fluphenazine HCl (Prolixin) 1 mg PO ASDIR [facility] Glipizide (Glucotrol Xl -) 5 mg PO BIDAC [facility] Last Admin: 06/12/19 06:06 Dose: Not Given Heparin Sodium (Porcine) (Heparin -) 5,000 unit SQ BID [facility] Last Admin: 06/11/19 21:25 Dose: 5,000 unit Ceftriaxone Sodium 2 gm/ (Dextrose) 100 mls @ 200 mls/hr IVPB DAILY [facility]; Protocol Last Admin: 06/11/19 09:58 Dose: 200 mls/hr Potassium Chloride 10 meq/ (Sodium Chloride) 1,005 mls @ 75 mls/hr IVPB ASDIR [facility] Last Admin: 06/11/19 14:00 Dose: 75 mls/hr Vancomycin HCl 1,250 mg/ (Dextrose) 250 mls @ 250 mls/2 hr IVPB ONCE ONE; Protocol Stop: 06/12/19 11:59 Insulin Aspart (Novolog Vial Sliding Scale -) 1 vial SQ ACHS [facility]; Protocol Last Admin: 06/12/19 06:06 Dose: Not Given Insulin Detemir (Levemir Vial) 30 units SQ 0700,2200 [facility] Last Admin: 06/12/19 06:06 Dose: Not Given Lactobacillus Acidophilus (Bacid -) 1 tab PO DAILY [facility] Last Admin: 06/11/19 16:59 Dose: 1 tab Latanoprost (Xalatan 0.005% Eye Drops -) 1 drop OU HS [facility] Last Admin: 06/11/19 21:29 Dose: 1 drop Metformin HCl (Glucophage -) 500 mg PO BIDAC [facility] Last Admin: 06/12/19 06:06 Dose: Not Given Non-Formulary Medication (Semaglutide [Ozempic]) 1 mg SQ WEEKLY [facility] Valsartan (Diovan -) 80 mg PO DAILY [facility] Last Admin: 06/11/19 09:56 Dose: 80 mg - Objective Vital Signs: Vital Signs Temperature 98.6 F 06/12/19 09:14 Pulse Rate 100 H 06/12/19 09:14 Respiratory Rate 18 06/12/19 09:14 Blood Pressure 136/53 L 06/12/19 09:14 O2 Sat by Pulse Oximetry (%) 96 06/11/19 20:11 Constitutional: Yes: No Distress, Calm Eyes: Yes: Conjunctiva Clear HENT: Yes: Atraumatic Neck: Yes: Supple Cardiovascular: Yes: Regular Rate and Rhythm Respiratory: Yes: CTA Bilaterally Gastrointestinal: Yes: Soft. No: Tenderness Genitourinary: No: Hematuria Musculoskeletal: No: Joint Stiffness, Joint Swelling Extremities: No: Calf Tenderness, Cold, Cool, Cyanosis Edema: No Integumentary: No: Rash, Venous Stasis Changes Neurological: Yes: WNL, Alert, Oriented ...Motor Strength: WNL Psychiatric: Yes: WNL, Alert, Oriented. No: Agitated, Suicidal Ideation Labs: CBC, BMP 06/12/19 07:45 06/12/19 07:45 INR, PTT INR 1.20 (0.83-1.09) H 06/10/19 11:50 - ....Imaging Other: Report Reviewed Assessment/Plan 59 year old female with PMH o of IDDM, GERD, HLD, GERD, HTN, HLD,multi back trauma, anxiety, presents to the ED for 5 days of fever, cough, and myalgias despite azithromycin and Tamiflu usage. CXR and CT c/w bilateral small infiltrates PNA IV ATB ceftriaxone and doxycycline per ID; add vanco IV check echo send repeat blood cultures diarrhea - sent stools for CDiff O/p Cx; GI eval prognosis guarded d/w pt and staff
[2019-06-12] MEDS ORDERED: VANCOMYCIN HCL 1,250 MG in DEXTROSE 5%-WATER - 250 ML IVPB ONE (10:00)
[2019-06-12] MEDS ORDERED: DEXTROSE 5%-WATER 100 ML IVPB ONE (10:42)
[2019-06-12] MEDS: CEFTRIAXONE 2 GM in DEXTROSE 5%-WATER 100 ML IVPB SCH (10:46)
[2019-06-12] MEDS: LACTOBACILLUS ACIDOPHILUS 1 TABLET PO SCH (10:46)
[2019-06-12] MEDS: HEPARIN NA (PORCINE) 5,000 UNITS/ML 1ML VIAL SQ SCH ×2 (10:46→21:43)
[2019-06-12] MEDS: ASPIRIN 81 MG CHEWABLE TABLETS PO SCH (10:46)
[2019-06-12] MEDS: VALSARTAN 80 MG TABLET (UD) PO SCH (10:46)
[2019-06-12] MEDS ORDERED: PT OWN MED DRAWER 7, Y5N ONE (11:54)
--- NOTE | 2019-06-12 12:27 | PN ---
Progress Note (short form) - Note Progress Note: cough resolved, less myalgia frequent "green" diarrhea chest ct with LLL and RML infiltrates fevers trending down Vital Signs Period Temp Pulse Resp BP Sys/Molina Pulse Ox Last 24 Hr 98.1 F-101.7 F 100-101 18-20 121-146/53-83 96 cor-rrr lungs clear abd soft,nt ext no edema CBC, BMP 06/12/19 07:45 06/12/19 07:45 Microbiology 06/10/19 12:10 Blood - Peripheral Venous Blood Culture - Preliminary NO GROWTH OBTAINED AFTER 48 HOURS, INCUBATION TO CONTINUE FOR 3 DAYS. 06/10/19 11:50 Blood - Peripheral Venous Blood Culture - Preliminary Pending Organism 06/10/19 20:30 Urine For Antigen Detection Legionella Antigen - Final 06/10/19 20:30 Urine For Antigen Detection Streptococcus pneumoniae Antigen (M - Final 06/10/19 12:28 Urine - Urine Clean Catch Urine Culture - Final Normal Urogenital Danuta a/p +blood culture- repeat blood cultures, add vancomycin CAP- continue rocephin, has completed 4 days of zithromax diarrhea- send stools for wbc and culture, cdiff-all pending, add norovirus elevated cpk- start IVF (recxeived iv in ED yesterday), improving urine antigens negative rsv negative influenza antigen negative times 2 d/w dr west Problem List - Problems (1) Fever Code(s): R50.9 - FEVER, UNSPECIFIED (2) Pneumonia Code(s): J18.9 - PNEUMONIA, UNSPECIFIED ORGANISM
--- NOTE | 2019-06-12 16:01 | CON.GI ---
Consult Consult Specialty:: Gastroenterology Referred by:: Dr. Lofton Reason for Consultation:: Diarrhea - History of Present Illness History of Present Illness: 59yo female h/o DM, HTN presenting with fever, cough, and myalgias x 5 days asked to evaluate for diarrhea. Pt reports developing cough and fever approximately 1 week ago, was treated wtih zithromax however due to persistent symptoms and myalgias was advised ED evaluation. Pt now reporting diarrhea since hospitalization, described as loose green stool up to 6-7x daily, no blood. Reports fecal urgency, denies abdominal pain, nausea or vomiting. Appetite improving. No prior colonoscopy. No known family h/o colon ca or IBD. - History Source History Provided By: Patient - Past Medical History Cardio/Vascular: Yes: HTN, Hyperlipdemia Endocrine: Yes: Diabetes Mellitus - Alcohol/Substance Use Hx Alcohol Use: No - Smoking History Smoking history: Unknown if ever smoked Have you smoked in the past 12 months: No Aproximately how many cigarettes per day: 0 If you are a former smoker, when did you quit?: 1994 - Social History ADL: Independent History of Recent Travel: No Home Medications - Allergies Allergies/Adverse Reactions: Allergies Allergy/AdvReac Type Severity Reaction Status Date / Time No Known Drug Allergies Allergy Verified 06/10/19 11:42 IV CONTRAST AdvReac Uncoded 06/10/19 11:42 - Home Medications Home Medications: Ambulatory Orders Aspirin [ASA -] 81 mg PO DAILY 02/07/12 Citalopram Hydrobromide [Celexa -] 20 mg PO HS 02/07/12 Insulin Detemir [Levemir Flexpen] 38 unit SQ BID 02/07/12 Simvastatin [Zocor -] 40 mg PO HS 02/07/12 metFORMIN HCL [Metformin HCl] 500 mg PO BID 03/16/16 Semaglutide [Ozempic] 1 mg SQ WEEKLY 03/02/19 Bimatoprost [Lumigan] 1 drop OU HS 06/07/19 Insulin Sliding Scale [Novolog Vial Sliding Scale -] 0 units SQ ASDIR 06/07/19 Olmesartan Medoxomil 20 mg PO DAILY 06/07/19 Zolpidem Tartrate [Ambien] 10 mg PO HS 06/07/19 Azithromycin [Zithromax] 500 mg PO DAILY 06/10/19 Fluphenazine HCl 1 mg PO ASDIR 06/10/19 Glipizide [Glucotrol Xl] 5 mg PO BID 06/10/19 Review of Systems - Review of Systems Constitutional: reports: Lethargy Physical Exam-GI Vital Signs: Vital Signs Temperature 98.3 F 06/12/19 15:00 Pulse Rate 85 06/12/19 15:00 Respiratory Rate 18 06/12/19 15:00 Blood Pressure 135/72 06/12/19 15:00 O2 Sat by Pulse Oximetry (%) 96 06/11/19 20:11 Constitutional: Yes: Well Nourished, No Distress, Calm Cardiovascular: Yes: WNL, Regular Rate and Rhythm Respiratory: Yes: WNL, Regular, CTA Bilaterally ...Palpate: Yes: Other (Abd soft, nt, nd) Labs: CBC, BMP 06/12/19 07:45 06/12/19 07:45 INR, PTT INR 1.20 (0.83-1.09) H 06/10/19 11:50 Problem List - Problems (1) Diarrhea Assessment/Plan: 59yo female h/o DM, HTN presenting with fever, cough, and myalgias x 5 days being treated for pneumonia on rocephin asked to evaluate for acute diarrhea. No blood. Possible etiologies including self limiting infectious/viral gastroenteritis vs medication/antibiotic induced. -Recommend continue supportive measures -Diet as tolerated -Monitor electrolytes -Antibiotics per ID -Await results of C difficile, ova/parasites, norovirus and cultures -Pt will require colonoscopy pending above and once acute issues resolved as she would also be due for screening purposes Code(s): R19.7 - DIARRHEA, UNSPECIFIED
[2019-06-12] MEDS: POTASSIUM CHLORIDE 10 MEQ in SODIUM CHLORIDE 1,000 ML IVPB SCH (17:51)
[2019-06-12] MEDS: ATORVASTATIN CA 20 MG TABLET (FP) PO SCH (21:42)
[2019-06-12] MEDS: CITALOPRAM HYDROBROMIDE 20 MG TABLET PO SCH (21:43)
[2019-06-12] MEDS: LATANOPROST 0.005% OPHTH SOLN 2.5ML BOTTLE OU SCH (21:55)
[2019-06-13] MEDS ORDERED: PT OWN MED DRAWER 7, Y5N ONE ×2 (06:16→17:49)
[2019-06-13] MEDS: metFORMIN HCL 500 MG TABLET (FP) PO SCH ×2 (07:06→17:49)
[2019-06-13] MEDS: glipiZIDE-XL 5 MG TAB.ER.24 PO SCH ×2 (07:10→17:49)
[2019-06-13] MEDS: INSULIN SLIDING SCALE (NOVOLOG) 1 VIAL SQ SCH ×4 (07:10→21:26)
[2019-06-13] MEDS: INSULIN (LEVEMIR) 100 UNITS/ML UNITS SQ SCH ×2 (07:10→21:26)
--- NOTE | 2019-06-13 07:24 | PN ---
Progress Note, Physician Chief Complaint: afebrile feeling better repeat blood cx pending - Current Medication List Current Medications: Active Medications Acetaminophen (Tylenol -) 650 mg PO Q6H PRN PRN Reason: FEVER Last Admin: 06/11/19 21:20 Dose: 650 mg Aspirin (Asa -) 81 mg PO DAILY [facility] Last Admin: 06/12/19 10:46 Dose: 81 mg Atorvastatin Calcium (Lipitor -) 20 mg PO HS [facility] Last Admin: 06/12/19 21:42 Dose: Not Given Citalopram Hydrobromide (Celexa -) 20 mg PO HS [facility] Last Admin: 06/12/19 21:43 Dose: 20 mg Fluphenazine HCl (Prolixin) 1 mg PO ASDIR [facility] Glipizide (Glucotrol Xl -) 5 mg PO BIDAC [facility] Last Admin: 06/13/19 07:10 Dose: 5 mg Heparin Sodium (Porcine) (Heparin -) 5,000 unit SQ BID [facility] Last Admin: 06/12/19 21:43 Dose: 5,000 unit Ceftriaxone Sodium 2 gm/ (Dextrose) 100 mls @ 200 mls/hr IVPB DAILY [facility]; Protocol Last Admin: 06/12/19 10:46 Dose: 200 mls/hr Potassium Chloride 10 meq/ (Sodium Chloride) 1,005 mls @ 75 mls/hr IVPB ASDIR [facility] Last Admin: 06/12/19 17:51 Dose: 75 mls/hr Insulin Aspart (Novolog Vial Sliding Scale -) 1 vial SQ ACHS [facility]; Protocol Last Admin: 06/13/19 07:10 Dose: Not Given Insulin Detemir (Levemir Vial) 30 units SQ 0700,2200 [facility] Last Admin: 06/13/19 07:10 Dose: 30 units Lactobacillus Acidophilus (Bacid -) 1 tab PO DAILY [facility] Last Admin: 06/12/19 10:46 Dose: 1 tab Latanoprost (Xalatan 0.005% Eye Drops -) 1 drop OU HS [facility] Last Admin: 06/12/19 21:55 Dose: 1 drop Metformin HCl (Glucophage -) 500 mg PO BIDAC [facility] Last Admin: 06/13/19 07:06 Dose: Not Given Non-Formulary Medication (Semaglutide [Ozempic]) 1 mg SQ WEEKLY [facility] Valsartan (Diovan -) 80 mg PO DAILY [facility] Last Admin: 06/12/19 10:46 Dose: 80 mg - Objective Vital Signs: Vital Signs Temperature 98.5 F 06/13/19 06:00 Pulse Rate 87 06/13/19 06:00 Respiratory Rate 06/13/19 06:00 Blood Pressure 153/78 06/13/19 06:00 O2 Sat by Pulse Oximetry (%) 96 06/12/19 09:00 Constitutional: Yes: No Distress, Calm Eyes: Yes: Conjunctiva Clear HENT: Yes: Atraumatic Neck: Yes: Supple Cardiovascular: Yes: Regular Rate and Rhythm Respiratory: Yes: CTA Bilaterally Gastrointestinal: Yes: Soft. No: Tenderness Genitourinary: No: Hematuria Musculoskeletal: No: Joint Stiffness, Joint Swelling Edema: No Integumentary: No: Rash, Venous Stasis Changes Neurological: Yes: Alert ...Motor Strength: WNL Psychiatric: Yes: Alert. No: Agitated Labs: CBC, BMP 06/12/19 07:45 06/12/19 07:45 INR, PTT INR 1.20 (0.83-1.09) H 06/10/19 11:50 - ....Imaging Other: Report Reviewed Assessment/Plan 59 year old female with PMH o of IDDM, GERD, HLD, GERD, HTN, HLD,multi back trauma, anxiety, presents to the ED for 5 days of fever, cough, and myalgias. Rhabdomyolisys high CPK - fever? viral? CXR and CT c/w bilateral small infiltrates PNA IV ATB ceftriaxone and doxycycline per ID; IVF check echo repeat blood cultures pending diarrhea - better, GI f/u prognosis guarded d/w pt and staff
[2019-06-13] MEDS ORDERED: DEXTROSE 5%-WATER 100 ML IVPB ONE (09:21)
[2019-06-13] MEDS: LACTOBACILLUS ACIDOPHILUS 1 TABLET PO SCH (09:26)
[2019-06-13] MEDS: HEPARIN NA (PORCINE) 5,000 UNITS/ML 1ML VIAL SQ SCH ×2 (09:27→21:19)
[2019-06-13] MEDS: ASPIRIN 81 MG CHEWABLE TABLETS PO SCH (09:27)
[2019-06-13] MEDS: VALSARTAN 80 MG TABLET (UD) PO SCH (09:27)
[2019-06-13] MEDS: CEFTRIAXONE 2 GM in DEXTROSE 5%-WATER 100 ML IVPB SCH (09:27)
--- NOTE | 2019-06-13 13:59 | PN ---
Progress Note (short form) - Note Progress Note: afebrile 24 hours, diarrhea improving no cough Vital Signs Period Temp Pulse Resp BP Sys/Molina Pulse Ox Last 24 Hr 98.3 F-98.6 F 80-87 18-20 132-153/72-87 cor-rrr llungs decreased bs at bases abd soft,nt ext no edema CBC, BMP 06/12/19 07:45 06/12/19 07:45 Microbiology 06/10/19 12:10 Blood - Peripheral Venous Blood Culture - Preliminary NO GROWTH OBTAINED AFTER 72 HOURS, INCUBATION TO CONTINUE FOR 2 DAYS. 06/12/19 10:58 Blood - Peripheral Venous Blood Culture - Preliminary NO GROWTH OBTAINED AFTER 24 HOURS, INCUBATION TO CONTINUE FOR 4 DAYS. 06/12/19 10:45 Blood - Peripheral Venous Blood Culture - Preliminary NO GROWTH OBTAINED AFTER 24 HOURS, INCUBATION TO CONTINUE FOR 4 DAYS. 06/11/19 12:30 Stool Salmonella/Shigella Culture - Preliminary NO ENTERIC PATHOGENS, 24 HOURS, ON PRIMARY PLATES 06/11/19 12:30 Stool Yersinia Culture - Preliminary NO ENTERIC PATHOGENS, 24 HOURS, ON PRIMARY PLATES 06/11/19 12:30 Stool Vibrio Culture - Final NO GROWTH OF VIBRIO SPECIES OBTAINED 06/11/19 12:30 Stool Escherichia coli 0157 Culture - Final NO GROWTH OF E COLI 0157 OBTAINED 06/10/19 11:50 Blood - Peripheral Venous Blood Culture - Preliminary Staphylococcus Coagulase Neg 06/11/19 12:30 Stool Gram Stain - Final 06/11/19 12:30 Stool Clostridioides difficile Antigen - Final-negative 06/11/19 12:30 Stool Clostridioides difficile Toxin Assay - Final-negative 06/10/19 20:30 Urine For Antigen Detection Legionella Antigen - Final- negative 06/10/19 20:30 Urine For Antigen Detection Streptococcus pneumoniae Antigen (M - Final-negative 06/10/19 12:28 Urine - Urine Clean Catch Urine Culture - Final Normal Urogenital Danuta a/p +blood culture- skin contaminant, no need to treat CAP- continue rocephin day #4 has completed 4 days of zithromax diarrhea- send stools for wbc and culture, cdiff-all negative , add norovirus- resolving elevated cpk- start IVF (recxeived iv in ED yesterday), improving urine antigens negative rsv negative influenza antigen negative times 2 stool studies negative blood culture contaminant no objection to switch to po ceftin to finish 7 days if she continues to improve Problem List - Problems (1) Fever Code(s): R50.9 - FEVER, UNSPECIFIED (2) Pneumonia Code(s): J18.9 - PNEUMONIA, UNSPECIFIED ORGANISM
[2019-06-13] MEDS ORDERED: POTASSIUM CHLORIDE 10 MEQ in SODIUM CHLORIDE 1,000 ML IVPB SCH (14:03)
--- NOTE | 2019-06-13 16:03 | PN.GI ---
GI Progress Note Subjective: No acute events No GI complaints - Objective Vital Signs: Vital Signs Temperature 98.4 F 06/13/19 15:00 Pulse Rate 84 06/13/19 15:00 Respiratory Rate 18 06/13/19 15:00 Blood Pressure 147/68 06/13/19 15:00 O2 Sat by Pulse Oximetry (%) 96 06/13/19 09:00 Constitutional: Calm Eyes: No: Sclera Icterus Cardiovascular: Yes: Regular Rate and Rhythm Respiratory: Yes: CTA Bilaterally Gastrointestinal Inspection: No: Distention ...Auscultate: Yes: Normoactive Bowel Sounds ...Palpate: Yes: Soft. No: Hepatomegaly, Tenderness ...Percussion: No: Tympanitic Edema: No (No LE edema) Neurological: Yes: Alert Labs: CBC, BMP 06/12/19 07:45 06/12/19 07:45 INR, PTT INR 1.20 (0.83-1.09) H 06/10/19 11:50 Problem List - Problems (1) Diarrhea Assessment/Plan: Diarrhea resolved C. Diff and culture negative Norovirus PCR pending Clinically improving Outpatient follow-up when acute issues resolved Code(s): R19.7 - DIARRHEA, UNSPECIFIED
--- NOTE | 2019-06-13 16:46 | ECHO ---
Name: AILYN BEARD Exam:Adult Echocardiogram Study Date: 06/13/2019 03:00 PM Age: 59 yrs Height: 60 in Weight: 164 lb BSA: 1.7 m2 MMode/2D Measurements & Calculations IVSd: 1.4 cm Ao root diam: 2.3 cm LVIDd: 3.4 cm LA dimension: 2.6 cm LVIDs: 2.5 cm LVPWd: 1.1 cm LVPWs: 1.2 cm EDV(Teich): 48.6 ml ESV(Teich): 21.3 ml LVOT diam: 2.0 cm LAV (MOD-bp): 53.0 ml RV S Kelton: 7.1 cm/sec Doppler Measurements & Calculations MV E max kelton: 90.8 cm/sec Ao V2 max: 118.7 cm/sec MV A max kelton: 83.4 cm/sec Ao max P.7 mmHg MV E/A: 1.1 GAYATRI(V,D): 2.3 cm2 MV dec time: 0.18 sec LV V1 max P.3 mmHg TR max kelton: 273.0 cm/sec LV V1 max: 91.3 cm/sec TR max P.8 mmHg PA V2 max: 105.2 cm/sec PI end-d kelton: 104.5 cm/sec PA max P.4 mmHg Med Peak E' Kelton: 12.5 cm/sec Med E/e': 7.3 Lat Peak E' Kelton: 8.8 cm/sec Lat E/e': 10.4 Procedure A complete two-dimensional transthoracic echocardiogram was performed (2D, M-mode, Doppler and color flow Doppler). Left Ventricle The left ventricular size, thickness and function are normal. The left ventricular ejection fraction is normal. Ejection Fraction = 60-65%. The left ventricular wall motion is normal. Right Ventricle The right ventricle is normal in size and function. Atria Normal left and right atrial size and function. Mitral Valve There is no mitral regurgitation noted. Tricuspid Valve There is trace tricuspid regurgitation. Right ventricular systolic pressure is normal. Aortic Valve The aortic valve is trileaflet. No hemodynamically significant valvular aortic stenosis. No aortic regurgitation is present. Pulmonic Valve There is no pulmonic valvular regurgitation. Great Vessels The aortic root is normal size. Pericardium/Pleura There is no pericardial effusion. Interpretation Summary The left ventricular size, thickness and function are normal The right ventricle is normal in size and function. There is trace tricuspid regurgitation. MD Aj Longo 06/13/2019 04:45 PM
[2019-06-13] MEDS: LATANOPROST 0.005% OPHTH SOLN 2.5ML BOTTLE OU SCH (21:19)
[2019-06-13] MEDS: CITALOPRAM HYDROBROMIDE 20 MG TABLET PO SCH (21:19)
[2019-06-13] MEDS: ATORVASTATIN CA 20 MG TABLET (FP) PO SCH (21:20)
[2019-06-14] MEDS: glipiZIDE-XL 5 MG TAB.ER.24 PO SCH (06:28)
[2019-06-14] MEDS: INSULIN SLIDING SCALE (NOVOLOG) 1 VIAL SQ SCH ×2 (06:28→11:41)
[2019-06-14] MEDS: metFORMIN HCL 500 MG TABLET (FP) PO SCH (06:28)
[2019-06-14] MEDS: INSULIN (LEVEMIR) 100 UNITS/ML UNITS SQ SCH (06:28)
[2019-06-14] MEDS: POTASSIUM CHLORIDE 10 MEQ in SODIUM CHLORIDE 1,000 ML IVPB SCH (08:16)
[2019-06-14 08:36] LABS: BASO % 0.3 % (0-2.0); HEMATOCRIT 29.7 % (32.4-45.2); HEMOGLOBIN 9.8 GM/dL (10.7-15.3); LYMPH % 24.8 % (8-40); MCH 28.6 pg (25.7-33.7); MCHC 33.2 g/dl (32.0-36.0); MEAN CELL VOLUME 86.1 fl (80-96); MEAN PLT VOLUME 8.5 fl (7.5-11.1); MONO % 9.2 % (3.8-10.2); NEUT % 65.7 % (42.8-82.8); PLATELET COUNT 251 K/MM3 (134-434); RBC 3.45 M/mm3 (3.60-5.2); RDW 15.4 % (11.6-15.6); WHITE BLOOD COUNT 5.4 K/mm3 (4.0-10.0)
[2019-06-14 09:12] LABS: ALK PHOS 97 U/L (45-117); ANION GAP 8 MMOL/L (8-16); BILIRUBIN,TOTAL 0.3 mg/dL (0.2-1); CHLORIDE 108 mmol/L (98-107); CO2 26 mmol/L (21-32); CREATININE 0.5 mg/dL (0.55-1.3); GLUCOSE,RANDOM 195 mg/dL (74-106); POTASSIUM 3.4 mmol/L (3.5-5.1); SGOT/AST 32 U/L (15-37); SGPT/ALT 45 U/L (13-61); SODIUM 141 mmol/L (136-145)
[2019-06-14] MEDS ORDERED: DEXTROSE 5%-WATER 100 ML IVPB ONE (09:24)
[2019-06-14 09:37] VITALS: BP 144/83; PULSE 98; TEMP 98.6
[2019-06-14] MEDS: CEFTRIAXONE 2 GM in DEXTROSE 5%-WATER 100 ML IVPB SCH (09:38)
[2019-06-14] MEDS: LACTOBACILLUS ACIDOPHILUS 1 TABLET PO SCH (09:39)
[2019-06-14] MEDS: HEPARIN NA (PORCINE) 5,000 UNITS/ML 1ML VIAL SQ SCH (09:39)
[2019-06-14] MEDS: ASPIRIN 81 MG CHEWABLE TABLETS PO SCH (09:39)
[2019-06-14] MEDS: VALSARTAN 80 MG TABLET (UD) PO SCH (09:40)
--- NOTE | 2019-06-14 09:42 | DS ---
Physical Examination Vital Signs: Vital Signs Temperature 98.6 F 06/14/19 09:36 Pulse Rate 98 H 06/14/19 09:36 Respiratory Rate 18 06/14/19 09:36 Blood Pressure 144/83 06/14/19 09:36 O2 Sat by Pulse Oximetry (%) 96 06/13/19 09:00 Findings/Remarks: in bed NAD afebrile VSS NAD no c/o feels well wants to go home. Constitutional: Yes: No Distress, Calm Eyes: Yes: Conjunctiva Clear HENT: Yes: Atraumatic Neck: Yes: Supple Cardiovascular: Yes: Regular Rate and Rhythm Respiratory: Yes: CTA Bilaterally Gastrointestinal: Yes: Soft. No: Tenderness Renal/: No: Hematuria Musculoskeletal: No: Joint Stiffness, Joint Swelling Extremities: No: Cold, Cool, Cyanosis Edema: No Integumentary: No: Rash, Venous Stasis Changes Neurological: Yes: WNL, Alert, Oriented ...Motor Strength: WNL Psychiatric: Yes: WNL, Alert, Oriented. No: Agitated, Suicidal Ideation Labs: CBC, BMP 06/14/19 07:37 06/14/19 07:37 Discharge Summary Problems reviewed: Yes Reason For Visit: SEPSIS DUE TO PNEUMONIA Current Active Problems Diarrhea (Acute) Fever (Acute) Pneumonia (Acute) Sepsis due to pneumonia (Acute) Procedures: Principal: 59 YOF HTN DM anxiety depression admitted with recurrent cough SOB PNA; FLU x2; diarrhea Other Procedures: seen by ID and GI; IV ATB per ID Hospital Course: improved with above; DC home on ceftin po; f/u with PCP and GI as advised; RTER if worse or recurrent c/o dw pt. Condition: Improved - Instructions Diet, Activity, Other Instructions: f/u PCP in 1-2 weeks; po ceftin bid x 1 week; RTER if worse or recurrent; colonoscopy with GI in 1-2 months outpt Referrals: Mikaela Lofton [Primary Care Provider] - Dickson Enriquez MD [Staff Physician] - Disposition: VNS/HOME HEALTH CARE - Home Medications Comprehensive Discharge Medication List: Ambulatory Orders Aspirin [ASA -] 81 mg PO DAILY 02/07/12 Citalopram Hydrobromide [Celexa -] 20 mg PO HS 02/07/12 Insulin Detemir [Levemir Flexpen] 38 unit SQ BID 02/07/12 Simvastatin [Zocor -] 40 mg PO HS 02/07/12 metFORMIN HCL [Metformin HCl] 500 mg PO BID 03/16/16 Semaglutide [Ozempic] 1 mg SQ WEEKLY 03/02/19 Bimatoprost [Lumigan] 1 drop OU HS 06/07/19 Insulin Sliding Scale [Novolog Vial Sliding Scale -] 0 units SQ ASDIR 06/07/19 Olmesartan Medoxomil 20 mg PO DAILY 06/07/19 Zolpidem Tartrate [Ambien] 10 mg PO HS 06/07/19 Azithromycin [Zithromax] 500 mg PO DAILY 06/10/19 Fluphenazine HCl 1 mg PO ASDIR 06/10/19 Glipizide [Glucotrol Xl] 5 mg PO BID 06/10/19
[2019-06-14] MEDS ORDERED: POTASSIUM CHLORIDE TABS 10 MEQ TABLET.ER (FP) PO SCH (10:15)
== END 2019-06-14 13:04 | disposition home health service (06) | DRG 194 ==
LOC: JER 11:33 → JERBED 11:56 → J8W 17:13
PROVIDERS: ADMIT Internal Medicine; ATTEND Internal Medicine
DX: J18.9 Pneumonia, unspecified organism (principal); J98.11 Atelectasis; M62.82 Rhabdomyolysis; E78.5 Hyperlipidemia, unspecified; K21.9 Gastro-esophageal reflux disease without esophagitis; E11.9 Type 2 diabetes mellitus without complications; I10 Essential (primary) hypertension; F41.9 Anxiety disorder, unspecified; E04.1 Nontoxic single thyroid nodule; F41.0 Panic disorder [episodic paroxysmal anxiety]; R19.7 Diarrhea, unspecified
CPT/HCPCS: 36415; 71045-TC-FY; 71046-TC-FY; 71250-TC; 80053; 81003; 81015; 82085; 82550; 82553; 82803; 82962; 83605; 84443; 84484; 85025; 85610; 85651; 85730; 86038; 87040; 87045; 87046; 87086; 87177; 87186; 87205; 87209; 87324; 87449; 87633; 87798; 87804; 87807; 87899; 93005; 93010; 93306-TC; 99281-25; 99284-25; J0131; J1644; J7030

== ENCOUNTER 2019-07-20 11:49 | Emergency (ER) | payer OTHER ==
[2019-07-20 12:10] VITALS: TEMP 98.4; BMI 30.8
--- NOTE | 2019-07-20 12:11 | PDOC ---
History of Present Illness - General Chief Complaint: Respiratory Stated Complaint: POST NASAL DRIP WITH COUGH - History of Present Illness Initial Comments: The pt is a 59F w/ a history of IDDM, GERD, HLD, GERD, HTN, HLD,multi back trauma, anxiety who presents for evaluation of several days of rhinnorhea, post- nasal drip, and associated chest tightness. The pt reports the chest tightness started this AM at 0400. It is constant, non-exertional, non-radiating, and not exacerbated or alleviated by anything she can identify She was seen by Dr. Lofton and prescribed Loratidine, Azithormycin, and an inhaler this week which she has not tried yet. She is also concerned because she obtained a new glucose monitor and obtained several different readings back to back last night. However she was not prescribed the appropriate test strips for the machine. Denies fevers, N/V, abdominal pain, changes in strength/sensation 07/20/19 12:16 Past History - Past Medical History Allergies/Adverse Reactions: Allergies Allergy/AdvReac Type Severity Reaction Status Date / Time IV CONTRAST AdvReac Uncoded 06/10/19 11:42 Home Medications: Ambulatory Orders Aspirin 81 mg PO DAILY 07/20/19 Citalopram Hydrobromide [Celexa -] 20 mg PO HS 07/20/19 Insulin (Levemir) [Levemir Vial] 38 units SQ BID 07/20/19 Insulin Sliding Scale [Novolog Vial Sliding Scale -] 1 SQ ASDIR 07/20/19 Olmesartan Medoxomil [Benicar] 20 mg PO DAILY 07/20/19 Semaglutide [Ozempic] 1 vial SQ WEEKLY 07/20/19 Simvastatin 20 mg PO HS 07/20/19 Anemia: Yes Asthma: No Cancer: No Cardiac Disorders: Yes (? MURMUR) CVA: No COPD: No CHF: No Dementia: No Diabetes: Yes (IDDM) GI Disorders: Yes (GERD) Disorders: No HTN: Yes Hypercholesterolemia: Yes Liver Disease: No Psychiatric Problems: Yes (anxiety, panic attacks) Seizures: No Thyroid Disease: Yes (THYROID NODULE) - Surgical History Abdominal Surgery: No Appendectomy: No Cardiac Surgery: No Cholecystectomy: No Lung Surgery: No Neurologic Surgery: No Orthopedic Surgery: No - Immunization History Td Vaccination: Yes Immunization Up to Date: Yes - Psycho Social/Smoking Cessation Hx Smoking Status: No Smoking History: Never smoked Years of Tobacco Use: 0 Have you smoked in the past 12 months: No Number of Cigarettes Smoked Daily: 0 If you are a former smoker, when did you quit?: 1994 Cigars Per Day: 0 Information on smoking cessation initiated: No Hx Alcohol Use: No Drug/Substance Use Hx: No Substance Use Type: None Hx Substance Use Treatment: No Review of Systems - Review of Systems Able to Perform ROS?: Yes Comments:: GENERAL/CONSTITUTIONAL: No fever or chills. No weakness HEAD, EYES, EARS, NOSE AND THROAT: No change in vision. No change in hearing. No sore throat CARDIOVASCULAR: No chest pain or shortness of breath RESPIRATORY: Denies cough, hemoptysis GASTROINTESTINAL: No nausea, vomiting, diarrhea or constipation GENITOURINARY: No dysuria, frequency, or change in urination MUSCULOSKELETAL: No joint or muscle swelling or pain. No neck or back pain SKIN: No rash NEUROLOGIC: No headache, vertigo, loss of consciousness, or change in strength/ sensation ENDOCRINE: No increased thirst. No abnormal weight change HEMATOLOGIC/LYMPHATIC: No anemia, easy bleeding, or history of blood clots ALLERGIC/IMMUNOLOGIC: No hives or skin allergy 07/20/19 12:23 Is the patient limited Irish proficient: No *Physical Exam - Vital Signs Last Vital Signs Temp Pulse Resp BP Pulse Ox 98.4 F 88 20 130/77 97 07/20/19 11:50 07/20/19 11:50 07/20/19 11:50 07/20/19 11:50 07/20/19 11:50 - Physical Exam GENERAL: Awake, alert, and oriented to person/place/time, in no acute distress HEAD: No signs of trauma, normocephalic, atraumatic EYES: PERRLA, EOMI, sclera anicteric, conjunctiva clear ENT: Hearing grossly normal, nares patent, oropharynx clear without exudates. Moist mucosa LUNGS: No distress, speaks in full sentences, clear to auscultation bilaterally HEART: Regular rate and rhythm, normal S1 and S2, no murmurs appreciated, peripheral pulses normal and equal bilaterally ABDOMEN: Soft, nontender, normoactive bowel sounds. No guarding, no rebound EXTREMITIES: Normal inspection, Normal range of motion, no edema. No clubbing or cyanosis NEUROLOGICAL: Cranial nerves II through XII grossly intact. Normal speech, normal gait, no focal sensorimotor deficits SKIN: Warm, Dry 07/20/19 12:31 ED Treatment Course - LABORATORY CBC & Chemistry Diagram: 07/20/19 12:45 07/20/19 12:33 Medical Decision Making - Medical Decision Making The pt is a 59F w/ a history of IDDM, GERD, HLD, GERD, HTN, HLD,multi back trauma, anxiety who presents for evaluation of several days of rhinnorhea, post- nasal drip, and associated chest tightness. ED Course CMP, CBC, Trop I ECG CXR BGM BG 177 07/20/19 12:33 ECG w/ sinus rhythm; HR 78; QTc 458; no axis deviation; no NETTA; no TWI 07/20/19 13:16 Lytes unremarkable LFTs unremarkable No TARA 07/20/19 13:23 CXR w/o acute pathology 07/20/19 13:28 No leukocytosis No anemia Plan for D/C w/ PCP f/u Discharge instructions and return precautions given Patient in agreement and verbalized understanding Dispo: Home 07/20/19 14:06 Discharge - Discharge Information Problems reviewed: Yes Clinical Impression/Diagnosis: Post-nasal drainage Chest pain Qualifiers: Chest pain type: unspecified Qualified Code(s): R07.9 - Chest pain, unspecified Condition: Stable Disposition: HOME - Admission No - Follow up/Referral Referrals: Mikaela Lofton [Staff Physician] - - Patient Discharge Instructions Patient Printed Discharge Instructions: DI for Viral Syndrome Additional Instructions: You were seen in the Emergency Department for evaluation of post-nasal drip and chest tightness. Your labs and imaging were unremarkable. Review the handout provided at discharge. Be sure to ask about the correct prescription for test strips. Follow up with your primary care provider. Take your medications as prescribed. May use the albuterol inhaler every 4-6 hours as needed for cough and breathing to clear up your airways. Return precautions include respiratory distress, difficulty breathing, cyanosis , chest pain, lethargy, confusion, dehydration, high fevers or pain. - Post Discharge Activity
--- NOTE | 2019-07-20 13:14 | EKG ---
Test Reason : Blood Pressure : / mmHG Vent. Rate : 078 BPM Atrial Rate : 078 BPM P-R Int : 180 ms QRS Dur : 086 ms QT Int : 402 ms P-R-T Axes : 064 028 059 degrees QTc Int : 458 ms NORMAL SINUS RHYTHM WITH SINUS ARRHYTHMIA NORMAL ECG WHEN COMPARED WITH ECG OF 10-JUN-2019 12:29, NO SIGNIFICANT CHANGE WAS FOUND Confirmed by UNIQUE RODRIGUEZ MD ([id number]) on 07/20/2019 1:13:54 PM Referred By: WENDY VILLEDA Confirmed By:UNIQUE RODRIGUEZ MD
[2019-07-20 13:17] LABS: ALBUMIN 3.8 g/dl (3.4-5.0); BILIRUBIN,TOTAL 0.3 mg/dl (0.2-1); CREATININE 0.5 mg/dl (0.55-1.3); POTASSIUM 3.8 mmol/L (3.5-5.1); TOT PROT 7.4 g/dl (6.4-8.2)
[2019-07-20 13:37] LABS: BASO % 0.4 % (0-2.0); EOS % 0.5 % (0-4.5); HEMATOCRIT 34.7 % (32.4-45.2); HEMOGLOBIN 11.5 GM/dL (10.7-15.3); LYMPH % 25.1 % (8-40); MCH 29.2 pg (25.7-33.7); MCHC 33.2 g/dl (32.0-36.0); MEAN PLT VOLUME 8.2 fl (7.5-11.1); MONO % 7.1 % (3.8-10.2); NEUT % 66.9 % (42.8-82.8); PLATELET COUNT 406 K/MM3 (134-434); RBC 3.95 M/mm3 (3.60-5.2); RDW 15.7 % (11.6-15.6); WHITE BLOOD COUNT 6.8 K/mm3 (4.0-10.0)
--- NOTE | 2019-07-20 13:59 | PDOC ---
Attending Attestation - Resident Resident Name: Makenna Khanan - ED Attending Attestation I have performed the following: I have examined & evaluated the patient, The case was reviewed & discussed with the resident, I agree w/resident's findings & plan - HPI HPI: 07/20/19 13:54 59-year-old female with a history of hypertension and diabetes presents complaining of nasal congestion and drip with slight scratchy throat. She also feels some congestion in her chest. Patient was admitted to the hospital with pneumonia in May 2019. She has had some persistent cough since that time which has been waxing and waning. She saw her primary physician 2 days ago due to nasal congestion, sore throat, and slight cough. There is no fever, and no shortness of breath. She does feel some mild chest congestion, but no pain. She was prescribed azithromycin, loratadine, and an asthma inhaler by her physician 2 days ago, but she has not taken any of the medications. She comes in now for another opinion. - Physicial Exam PE: 07/20/19 13:56 Vital Signs (72 hours) 07/20/19 11:50 Temperature 98.4 F Pulse Rate 88 Respiratory 20 Rate Blood Pressure 130/77 O2 Sat by Pulse 97 Oximetry (%) Patient is awake, alert, and fully oriented. She appears well. There is no cough noted. There is no sneezing noted. Conjunctiva is clear, nasal mucosa is normal, posterior pharynx has no erythema or swelling or exudates. Neck is without adenopathy, supple. Lungs are clear throughout. Heart is regular rhythm without gallop or murmur. Abdomen is soft and nontender with normal bowel sounds, no guarding or rebound. Extremities are warm and well perfused without edema or tenderness. Overall, her examination is completely normal. - Medical Decision Making 07/20/19 13:57 Patient presents with nasal congestion and scratchy throat with slight cough and chest congestion. She denies any pain. Physical examination is normal. Twelve-lead EKG shows normal sinus rhythm with normal intervals, normal axis, and no acute ST or T wave changes. Impression: Normal twelve-lead EKG. Chest x-ray PA lateral was performed. The lungs are clear, heart is normal in size, there is no congestive heart failure, no effusions, and no infiltrates. Laboratory studies all reviewed. Normal troponin, unremarkable CBC, unremarkable chemistries, normal renal function. Impression: Possible mild viral URI. No evidence for significant acute infection. No evidence for other significant acute cardiopulmonary disease. Patient is stable for discharge, she may take the medications as prescribed by her primary physician.
[2019-07-20 14:16] VITALS: BP 125/63; PULSE 75
== END 2019-07-20 14:32 | disposition home or self-care (01) ==
LOC: FER 11:49
DX: R07.9 Chest pain, unspecified (principal); R09.82 Postnasal drip; Z91.041 Radiographic dye allergy status; E11.9 Type 2 diabetes mellitus without complications; K21.9 Gastro-esophageal reflux disease without esophagitis; I10 Essential (primary) hypertension; E78.5 Hyperlipidemia, unspecified
CPT/HCPCS: 36415; 71046-TC-FY; 80053; 82962; 84484; 85025; 93005; 99285-25

== ENCOUNTER 2020-01-25 17:57 | Emergency (ER) | payer OTHER ==
[2020-01-25 18:23] VITALS: BP 133/86; PULSE 85; TEMP 98.3; BMI 30.4
--- NOTE | 2020-01-25 18:23 | PDOC ---
Documentation entered by Willy Bingham SCRIBE, acting as scribe for Bhumi Estevez MD. Bhumi Estevez MD: This documentation has been prepared by the Zachery romero Alexis, SCRIBE, under my direction and personally reviewed by me in its entirety. I confirm that the documentation accurately reflects all work, treatment, procedures, and medical decision making performed by me. Attending Attestation - Resident Resident Name: Sameer Tineo - ED Attending Attestation I have performed the following: I have examined & evaluated the patient, The case was reviewed & discussed with the resident, I agree w/resident's findings & plan, Exceptions are as noted - HPI HPI: 01/25/20 18:18 The patient is a 59 year old female with a significant past medical history of DM, GERD, HLD, GERD, HTN, HLD,multi back trauma, anxiety who presents to the emergency department for evaluation of abdominal pain that began several weeks ago. The patient describes her pain as intermittent and worsened with eating. S he endorses feeling nervous. The patient went to Dr. Lofton for these symptoms who ordered a chest and abdomen CT which was completed one week ago and had normal results. The patient reports she is currently asymptomatic. The patient denies chest/back pain, cough, and shortness of breath. Denies fever, chills, nausea, vomiting, and/or any GI symptoms. Denies any symptoms. Denies any other symptoms. Allergies: IV contrast Social Hx: None reported Surgical Hx: dental procedure Family Hx: None reported PCP: Dr. Lofton - Physicial Exam PE: 01/25/20 18:21 General: well appearing HEENT: NCAT Abdomen: soft, nt, nd, no rebound, no guarding - Medical Decision Making 01/25/20 18:22 59 yo F with intermittent abdominal pain, CT c/a/p from ~1 week prior without any acute findings, currently without complaints and tolerating PO. No additional emergent workup indicated at this time given no reported symptoms at present time and recent CT negative for acute pathology. Plan: -reassurance -d/c with return precautions, recommend pt f/u with her PMD, will also give addtional GI referral as patient would like to be seen sooner than her current GI f/u appt This clinical encounter is taking place during a federal and state health care emergency attributable to the novel [place] Virus pandemic. The [place] of the Department of Health and Human Services has declared, pursuant to the Public Health Service Act 319F-3 (42 U.S.C. 247d-6d), that a covered persons activities related to medical countermeasures against COVID-19 will be immune from liability under Federal and State law. Discharge - Discharge Information Problems reviewed: Yes Clinical Impression/Diagnosis: Diarrhea Condition: Good Disposition: HOME - Follow up/Referral Referrals: Mikaela Lofton [Primary Care Provider] - Zion Felton MD [Staff Physician] - Eagle Luke MD [Staff Physician] - - Patient Discharge Instructions Patient Printed Discharge Instructions: Diarrhea, DI for Abdominal Pain-Adult Additional Instructions: Please see your Primary Doctor within the next 48 hours. Take over the counter imodium as needed and as described on the packaging for diarrhea. Your CAT scan results were printed and handed to you. Follow up with the GI Doctors referred to you. Return to the ER for new or concerning symptoms Thank you - Post Discharge Activity
--- NOTE | 2020-01-25 18:27 | PDOC ---
History of Present Illness - General Chief Complaint: Pain Stated Complaint: ABDOMINAL PAIN Time Seen by Provider: 01/25/20 18:14 History Source: Patient Exam Limitations: No Limitations - History of Present Illness Initial Comments: 01/25/20 18:30 59 yo female DM, GERD, HLD, GERD, HTN, HLD, multi back trauma, anxiety presents to the ED for CT results and complaints of chronic abdominal pain. Pt states the abdominal pain started greater than 2 weeks ago, saw her PCP, Dr. Lofton, CT scan was done however, pt came in requesting results. The abdominal pain is of the same quality and intensity over the past 2 weeks and the reason for the initial CT A/P. Describes the pain as sharp, epigastric and RUQ, made worse with food and after eating, pt admits to diarrhea. Denies N/V/F/C, changes in urinary habits, CP, SOB, lower qudrant abdominal pajn, back pain, denies current pain today or during the ED visit. Past History - Medical History Allergies/Adverse Reactions: Allergies Allergy/AdvReac Type Severity Reaction Status Date / Time IV CONTRAST AdvReac Intermediate confusion Uncoded 09/13/19 23:19 Home Medications: Ambulatory Orders Aspirin 81 mg PO DAILY 07/20/19 Citalopram Hydrobromide [Celexa -] 20 mg PO HS 07/20/19 Insulin (Levemir) [Levemir Vial] 38 units SQ BID 07/20/19 Insulin Sliding Scale [Novolog Vial Sliding Scale -] 0 units SQ ASDIR 07/20/19 Olmesartan Medoxomil [Benicar] 20 mg PO DAILY 07/20/19 Semaglutide [Ozempic] 1 vial SQ WEEKLY 07/20/19 Simvastatin 20 mg PO HS 07/20/19 Bimatoprost [Lumigan] 1 drop IO HS 09/13/19 Metformin HCl [Glucophage] 500 mg PO BID 09/13/19 Fluphenazine HCl [Prolixin] 1 mg PO DAILY PRN 01/25/20 Glipizide 5 mg PO DAILY 01/25/20 Zolpidem Tartrate [Ambien] 10 mg PO HS 01/25/20 Anemia: Yes Asthma: No Cancer: No Cardiac Disorders: Yes (? MURMUR) CVA: No COPD: No CHF: No Dementia: No Diabetes: Yes (IDDM) GI Disorders: Yes (GERD) Disorders: No HTN: Yes Hypercholesterolemia: Yes Liver Disease: No Psychiatric Problems: Yes (anxiety, panic attacks) Seizures: No Thyroid Disease: Yes (THYROID NODULE) - Surgical History Abdominal Surgery: No Appendectomy: No Cardiac Surgery: No Cholecystectomy: No Lung Surgery: No Neurologic Surgery: No Orthopedic Surgery: No - Reproductive History Is Patient Now?: No - Immunization History Td Vaccination: Yes Immunization Up to Date: Yes - Psycho-Social/Smoking History Smoking Status: No Smoking History: Former smoker Years of Tobacco Use: 0 Have you smoked in the past 12 months: No Number of Cigarettes Smoked Daily: 0 If you are a former smoker, when did you quit?: 35 YRS AGO Cigars Per Day: 0 Information on smoking cessation initiated: No - Substance Abuse Hx (Audit-C & DAST Scrn) How often the patient has a drink containing alcohol: Never Score: In Men: 4 or > Positive; In Women: 3 or > Positive: 0 Screen Result (Pos requires Nsg. Audit-10AR): Negative In the last yr the pt used illegal drug/Rx for NonMed reason: No Score: Yes response is considered Positive: 0 Screen Result (Positive result requires Nsg. DAST-10): Negative Review of Systems - Review of Systems Constitutional: Yes: Symptoms Reported HEENTM: Yes: Symptoms Reported Respiratory: Yes: Symptoms reported Cardiac (ROS): Yes: Symptoms Reported ABD/GI: Yes: Symptoms Reported : Yes: Symptoms Reported Musculoskeletal: Yes: Symptoms Reported Integumentary: Yes: Symptoms Reported Neurological: Yes: Symptoms reported *Physical Exam - Vital Signs Last Vital Signs Temp Pulse Resp BP Pulse Ox 98.3 F 85 15 133/86 99 01/25/20 17:58 01/25/20 17:58 01/25/20 17:58 01/25/20 17:58 01/25/20 17:58 - Physical Exam General Appearance: Yes: Nourished, Appropriately Dressed. No: Apparent Distress HEENT: positive: EOMI Neck: positive: Supple Respiratory/Chest: positive: Lungs Clear, Normal Breath Sounds. negative: Accessory Muscle Use Cardiovascular: positive: Regular Rhythm, Regular Rate, S1, S2. negative: Edema, JVD, Murmur Vascular Pulses: Dorsalis-Pedis (R): 4+, Doralis-Pedis (L): 4+ Gastrointestinal/Abdominal: positive: Flat, Soft. negative: Pulsatile Mass, Protuberent, Distended, Guarding, Rebound, Tenderness Musculoskeletal: negative: CVA Tenderness Extremity: positive: Normal Capillary Refill, Normal Inspection, Normal Range of Motion Integumentary: positive: Normal Color, Dry, Warm Neurologic: positive: Fully Oriented, Alert, Normal Response Medical Decision Making - Medical Decision Making 01/25/20 18:41 59 yo female DM, GERD, HLD, GERD, HTN, HLD, multi back trauma, anxiety presents to the ED for CT results and complaints of chronic abdominal pain. Pt states the abdominal pain started greater than 2 weeks ago, saw her PCP, Dr. Lofton, CT scan was done however, pt came in requesting results. The abdominal pain is of the same quality and intensity over the past 2 weeks and the reason for the initial CT A/P. Describes the pain as sharp, epigastric and RUQ, made worse with food and after eating, pt admits to diarrhea. Denies N/V/F/C, changes in urinary habits, CP, SOB, lower qudrant abdominal pajn, back pain, denies current pain today or during the ED visit. vitals WNL Pt presented to ED for CT results and currently denies any abdominal pain Exam shows non tender abdomen. Pt has further concerns of diarrhea after eating. Recommended over the counter imodium and PCP F/U Pt states she has not seen GI doctor due to availability of appointments. Will give more GI Doctor referrals CT AP done as an outpatient, no acute changes. Pt given results and with f/u with PCP and GI as an outpatient Pt understands and agrees with DC instructions Discharge - Discharge Information Problems reviewed: Yes Clinical Impression/Diagnosis: Diarrhea, Abdominal pain Condition: Good Disposition: HOME - Admission No - Follow up/Referral Referrals: Mikaela Lofton [Primary Care Provider] - Zion Felton MD [Staff Physician] - Eagle Luke MD [Staff Physician] - - Patient Discharge Instructions Patient Printed Discharge Instructions: Diarrhea, DI for Abdominal Pain-Adult Additional Instructions: Please see your Primary Doctor within the next 48 hours. Take over the counter imodium as needed and as described on the packaging for diarrhea. Your CAT scan results were printed and handed to you. Follow up with the GI Doctors referred to you. Return to the ER for new or concerning symptoms Thank you - Post Discharge Activity
== END 2020-01-25 18:33 | disposition home or self-care (01) ==
LOC: FER 17:57
DX: R19.7 Diarrhea, unspecified (principal)
CPT/HCPCS: 99282-25

== ENCOUNTER 2020-03-03 16:56 | Inpatient (IN) | payer OTHER ==
--- OUTSIDE RECORDS SUMMARY | 2020-03-03 17:15 | XMS ---
:1960 Author Organization [facility] Support Name Relationship Address Phone MARCIO ARAGON DAUGHTER [address] [phone] [place] [address] RE, RETIRED Unavailable Unavailable Unavailable RE Unavailable Unavailable Unavailable BRET SINGH [address] [place] [address] BRET SINGH Spouse [address] [phone] [place] [address] Re-disclosure Warning The records that you are about to access may contain information from federally- assisted alcohol or drug abuse programs. If such information is present, then the following federally mandated warning applies: This information has been disclosed to you from records protected by federal confidentiality rules (42 CFR part 2). The federal rules prohibit you from making any further disclosure of this information unless further disclosure is expressly permitted by the written consent of the person to whom it pertains or as otherwise permitted by 42 CFR part 2. A general authorization for the release of medical or other information is NOT sufficient for this purpose. The Federal rules restrict any use of the information to criminally investigate or prosecute any alcohol or drug abuse patient.The records that you are about to access may contain highly sensitive health information, the redisclosure of which is protected by Article 27-F of the [facility] [place] Public Health law. If you continue you may haveaccess to information: Regarding HIV / AIDS; Provided by facilities licensed or operated by the [facility] [place] Office of Mental Health; or Provided by the [facility] [place] Office for People With Developmental Disabilities. If such information is present, then the following [facility] [place] mandated warning applies: This information has been disclosed to you from confidential records which are protected by state law. State law prohibits you from making any further disclosure of this information without the specific written consent of the person to whom it pertains, or as otherwise permitted by law. Any unauthorized further disclosure in violation of state law may result in a fine or [place] [facility] sentence or both. A general authorization for the release of medical or other information is NOT sufficient authorization for further disclosure. Encounters Encounter Providers Location Date Indications Data Source(s ) Outpatient 03/22/2019 02:30:00 [facility] ([facility] EDT [facility]) Insurance Providers Payer name Policy type Policy ID Covered Covered constitution party's Policy P lexis / Coverage constitution party ID relationship to [place] [facility] [employer] type [place] MEDICARE [id number] SP [id number] 35 5 MEDICAID [id number] SP [id number] MEDICAID [id number] SP [id number] MEDICARE [id number] SP [id number] 35 5 MEDICARE [id number] SP [id number] 35 5 MEDICARE [id number] SP [id number] 35 5 MEDICARE [id number] SP [id number] 35 5 MEDICARE [id number] SP [id number] 35 5 MEDICARE [id number] SP [id number] 35 5 MEDICAID OF [id number] [place] [id number] 1 [id number] PART B [place] MEDICARE [id number] SP [id number] MEDICAID [id number] SP [id number] Results ID Date Data Source [id number] 02/14/2020 10:00:00 PM EDT [facility] Name Value Range Interpretation Code Description Data Candace rce(s) Supporting Document(s ) SARS-CoV-2 [facility] BY PCR This lab was ordered by DEDE GUTHRIE MD P C and reported by [facility]. ID Date Data Source [id number] 10/06/2019 04:40:00 PM EDT [facility] Name Value Range Interpretation Description Data Sup porting Code Source(s) Document(s ) 2019 Novel [facility] Coronavirus RNA Interpretation Unspecified Specimen Qualitative SY Probe Detection This lab was ordered by [facility] and reported by [facility]. ID Date Data Source [id number] 08/18/2019 10:31:00 PM EDT [facility] Name Value Range Interpretation Description Data Sup porting Code Source(s) Document(s ) 2019 Novel [facility] Coronavirus RNA Interpretation Unspecified Specimen Qualitative SY Probe Detection This lab was ordered by [facility]-[address] [facility]. Procedure
[2020-03-03 17:44] LABS: BASO % 0.5 % (0-2.0); EOS % 0.6 % (0-4.5); HEMATOCRIT 37.8 % (32.4-45.2); HEMOGLOBIN 12.3 GM/dl (10.7-15.3); LYMPH % 22.1 % (8-40); MCH 29.5 pg (25.7-33.7); MCHC 32.6 g/dl (32.0-36.0); MEAN CELL VOLUME 90.6 fl (80-96); MEAN PLT VOLUME 7.9 fl (7.5-11.1); MONO % 5.2 % (3.8-10.2); NEUT % 71.6 % (42.8-82.8); PLATELET COUNT 435 K/MM3 (134-434); RBC 4.17 M/mm3 (3.60-5.2); RDW 14.5 % (11.6-15.6); WHITE BLOOD COUNT 8.9 K/mm3 (4.0-10.8)
--- NOTE | 2020-03-03 17:48 | PDOC ---
History of Present Illness - General Chief Complaint: Chest Pain Stated Complaint: CHEST PAIN - History of Present Illness Initial Comments: 03/03/20 17:46 59 years old with past medical history significant for diabetes and GERD presents to the emergency department with intermittent chest discomfort over the last few days. Patient very anxious as her was recently rediagnosed with COVID. Presented to the ED 2 days ago complaining of runny nose congestion and intermittent left-sided chest discomfort. Had an EKG troponin and chest x- ray done which demonstrated no acute pathology. Presents today with similar complaints concerned about COVID requested COVID testing with some intermittent discomfort last night and this morning. Nonexertional nonradiating no associated dizziness or nauseousness. Pain is described as a burning sensation chest and throat. Past History - Medical History Allergies/Adverse Reactions: Allergies Allergy/AdvReac Type Severity Reaction Status Date / Time shellfish derived Allergy Verified 03/03/20 19:36 IV CONTRAST AdvReac Intermediate confusion Uncoded 09/13/19 23:19 Home Medications: Ambulatory Orders Aspirin 81 mg PO DAILY 07/20/19 Citalopram Hydrobromide [Celexa -] 20 mg PO HS 07/20/19 Insulin (Levemir) [Levemir Vial] 38 units SQ BID 07/20/19 Olmesartan Medoxomil [Benicar] 20 mg PO DAILY 07/20/19 Semaglutide [Ozempic] 1 vial SQ WEEKLY 07/20/19 Simvastatin 20 mg PO HS 07/20/19 Bimatoprost [Lumigan] 1 drop IO HS 09/13/19 Metformin HCl [Glucophage] 500 mg PO BID 09/13/19 Fluphenazine HCl [Prolixin] 1 mg PO DAILY PRN 01/25/20 Glipizide 5 mg PO DAILY 01/25/20 Pantoprazole Sodium 40 mg PO DAILY 03/04/20 Anemia: Yes Asthma: No Cancer: No Cardiac Disorders: Yes (? MURMUR) CVA: No COPD: No CHF: No Dementia: No Diabetes: Yes (IDDM) GI Disorders: Yes (GERD) Disorders: No HTN: Yes Hypercholesterolemia: Yes Liver Disease: No Psychiatric Problems: Yes (anxiety, panic attacks) Seizures: No Thyroid Disease: Yes (THYROID NODULE) - Surgical History Abdominal Surgery: No Appendectomy: No Cardiac Surgery: No Cholecystectomy: No Lung Surgery: No Neurologic Surgery: No Orthopedic Surgery: No - Reproductive History Is Patient Now?: No - Immunization History Td Vaccination: Yes Immunization Up to Date: Yes - Psycho-Social/Smoking History Smoking Status: No Smoking History: Never smoked Years of Tobacco Use: 0 Have you smoked in the past 12 months: No Number of Cigarettes Smoked Daily: 0 If you are a former smoker, when did you quit?: 35 YRS AGO Cigars Per Day: 0 Information on smoking cessation initiated: No - Substance Abuse Hx (Audit-C & DAST Scrn) How often the patient has a drink containing alcohol: Never Score: In Men: 4 or > Positive; In Women: 3 or > Positive: 0 Screen Result (Pos requires Nsg. Audit-10AR): Negative In the last yr the pt used illegal drug/Rx for NonMed reason: No Score: Yes response is considered Positive: 0 Screen Result (Positive result requires Nsg. DAST-10): Negative Review of Systems - Review of Systems Comments:: 03/03/20 17:47 ROS: A complete review of 10 out of 10 review of systems is taken and is negative apart from what is previously mentioned below and in the HPI. *Physical Exam - Vital Signs Last Vital Signs Temp Pulse Resp BP Pulse Ox 98.3 F 98 H 18 178/97 H 100 03/03/20 16:57 03/03/20 16:57 03/03/20 16:57 03/03/20 16:57 03/03/20 16:57 - Physical Exam 03/03/20 17:47 Vitals: Triage Vital signs reviewed General Appearance: No acute distress, well nourished well developed, Head: Atraumatic, Throat: Posterior oropharynx without erythema, mucous membranes moist, Neck: Supple; no Nucal rigidity Chest Wall: Nontender Cardiac: Regular rate and rhythym, no murmurs, no rubs, no gallops, Lungs: Clear to auscultation bilateral, good air movement bilaterally, Abdomen: Soft, non distended, normal bowel sounds, non tender to palpation Extremities: Full range of motion to all extremities, no cyanosis, clubbing, or edema Skin: Warm and dry, no rashes or lesions, no rash, no petechiae Psych: Normal mood, normal affect Heart Score/ECG Review - History History: Moderately suspicious - Electrocardiogram EKG: Normal - Age Age: 45-65 - Risk Factors Risk Factors Heart Score: Yes Hx Diabetes Based on the list above the patient has:: 1-2 risk factors - Troponin Troponin: 1-3x normal limit - Score Heart Score - Total: 4 - ECG Intrepretation Comment:: 03/03/20 17:49 EKG performed at 1735 demonstrates normal sinus rhythm. No ST elevations no T wave inversions Interpreted by me. No significant change when compared to EKG from March 01. ED Treatment Course - LABORATORY CBC & Chemistry Diagram: 03/05/20 05:55 03/05/20 05:55 - RADIOLOGY Radiology Studies Ordered: Category Date Time Status CXRPORT [CHEST X-RAY PORTABLE*] [RAD] Stat Radiology 03/03/20 17:03 Ordered Medical Decision Making - Medical Decision Making 03/03/20 18:59 Atypical chest discomfort heart score 4 detectable troponin nonischemic EKG Case discussed with cardiology will admit to medicine overnight serial troponins full dose aspirin no indication for heparin at this time patient currently chest pain-free Case discussed with PCP Dr. Lofton will admit to medicine for further management. Discharge - Discharge Information Problems reviewed: Yes Clinical Impression/Diagnosis: Chest pain Qualifiers: Chest pain type: unspecified Qualified Code(s): R07.9 - Chest pain, unspecified Condition: Stable Disposition: TRANSFER ACUTE CARE/OTHER HOSP - Follow up/Referral - Patient Discharge Instructions - Post Discharge Activity
[2020-03-03 17:50] LABS: BILIRUBIN,TOTAL 0.4 mg/dl (0.2-1); CALCIUM 9.3 mg/dl (8.5-10); CREATININE 0.7 mg/dl (0.55-1.3); TOT PROT 7.6 g/dl (6.4-8.2)
[2020-03-03] MEDS ORDERED: FAMOTIDINE 20 MG/50 ML IVPB 20 MG/50 ML MG IVPB ONE (18:09)
[2020-03-03] MEDS ORDERED: ACETAMINOPHEN 1000 MG/100 ML VIAL (NON FORMULARY) IVPB ONE (18:09)
[2020-03-03] MEDS ORDERED: LORazepam 2 MG/ML SDV VIAL IVPUSH ONE (18:09)
[2020-03-03] MEDS ORDERED: SODIUM CHLORIDE 0.9% 1000 ML INFUS.BAG IV ONE (18:09)
[2020-03-03] MEDS ORDERED: LORazepam 2 MG/ML SDV VIAL ONE (18:16)
[2020-03-03] MEDS ORDERED: ASPIRIN 325 MG ENTERIC COATED TABLET (FP) PO ONE (18:34)
[2020-03-03] MEDS ORDERED: ASPIRIN 81 MG CHEWABLE TABLETS PO ONE (19:06)
[2020-03-03] MEDS ORDERED: metFORMIN HCL 500 MG TABLET (FP) PO SCH (22:00)
[2020-03-03] MEDS ORDERED: INSULIN (NOVOLOG) ASPART 100 UNITS/ML 10ML VIAL SQ SCH (22:00)
[2020-03-03] MEDS ORDERED: PATIENT'S OWN MEDICATION (NON-FORMULARY) (Simvastatin [Simvastatin] 20 MG) PO SCH (22:00)
[2020-03-03] MEDS: CITALOPRAM HYDROBROMIDE 20 MG TABLET PO SCH (22:53)
[2020-03-03] MEDS: INSULIN (LEVEMIR) 100 UNITS/ML UNITS SQ SCH (22:53)
--- NOTE | 2020-03-03 22:53 | PDOC ---
*Physical Exam - Vital Signs Last Vital Signs Temp Pulse Resp BP Pulse Ox 98 F 86 18 151/79 100 03/03/20 19:56 03/03/20 19:56 03/03/20 19:56 03/03/20 19:56 03/03/20 19:56 ED Treatment Course - LABORATORY CBC & Chemistry Diagram: 03/03/20 17:20 03/03/20 17:20 - ADDITIONAL ORDERS Additional order review: Laboratory Results 03/03/20 03/03/20 03/03/20 22:17 17:20 17:20 Sodium 139 Potassium 4.0 Chloride 106 Carbon Dioxide 27 Anion Gap 6 L BUN 16.0 Creatinine 0.7 Est GFR (CKD-EPI)AfAm 109.15 Est GFR (CKD-EPI)NonAf 94.17 POC Glucometer 112 Random Glucose 259 H Calcium 9.3 Total Bilirubin 0.4 AST 19 ALT 18 Alkaline Phosphatase 90 CK-MB (CK-2) 1.5 Troponin I 0.25 H Total Protein 7.6 Albumin 4.0 03/03/20 03/03/20 22:17 17:20 RBC 4.17 MCV 90.6 MCHC 32.6 RDW 14.5 MPV 7.9 Neutrophils % 71.6 Lymphocytes % 22.1 Monocytes % 5.2 Eosinophils % 0.6 Basophils % 0.5 POC Glucometer 112 - Medications Given in the ED: ED Medications Discontinued Medications Generic Name Dose Route Start Last Admin Trade Name Amada PRN Reason Stop Dose Admin Acetaminophen 1,000 mg 03/03/20 18:09 03/03/20 18:26 Ofirmev Injection - IVPB 03/03/20 18:10 1,000 mg ONCE ONE Administration Aspirin 325 mg 03/03/20 18:34 03/03/20 19:13 Ecotrin - PO 03/03/20 18:35 Not Given ONCE ONE Aspirin 324 mg 03/03/20 19:06 03/03/20 19:08 Asa - PO 03/03/20 19:07 324 mg ONCE ONE Administration Famotidine/Sodium Chloride 20 mg in 50 mls @ 100 mls/hr 03/03/20 18:09 03/03/20 18:27 Pepcid 20 Mg Premixed Ivpb - IVPB 03/03/20 18:38 100 mls/hr ONCE ONE Administration Lorazepam 0.5 mg 03/03/20 18:09 03/03/20 18:25 Ativan Injection - IVPUSH 03/03/20 18:10 0.5 mg ONCE ONE Administration Sodium Chloride 1,000 ml 03/03/20 18:09 03/03/20 18:26 Normal Saline - IV 03/03/20 18:10 1,000 ml ONCE ONE Administration ED Progress Note - Progress Note Progress Note: 03/03/20 22:51 Audible attempts were made to collect a covert swab however patient adamantly refused and became combative when we tried to convince her. Patient is aware that because her COVID status is unknown and she is refusing the cover test that she will be transferred over to [facility] where she will be admitted instead of keeping her here Discharge - Discharge Information Problems reviewed: Yes Clinical Impression/Diagnosis: Chest pain Condition: Stable - Follow up/Referral - Patient Discharge Instructions - Post Discharge Activity
[2020-03-03] MEDS: PATIENT'S OWN MEDICATION (NON-FORMULARY) (Bimatoprost [Lumigan] 1 DROP) IO SCH (22:54)
[2020-03-03] MEDS: HEPARIN NA (PORCINE) 5,000 UNITS/ML 1ML VIAL SQ SCH (22:54)
[2020-03-03] MEDS ORDERED: ATORVASTATIN CA 10 MG TABLET (FP) PO SCH (23:03)
--- NOTE | 2020-03-03 23:25 | HP ---
Admitting History and Physical - Primary Care Physician PCP: Shabbir Lofton - Admission Chief Complaint: Left side chest pressure History of Present Illness: Pt developed left side chest pressure 2-3 days ago, associated with palpitations, lasting up to 5 minutes, no specific trigger, better when is relaxing. - Past Medical History Cardiovascular: Yes: HTN, Hyperlipdemia ...: No Endocrine: Yes: Diabetes Mellitus - Smoking History Smoking history: Never smoked Have you smoked in the past 12 months: No Aproximately how many cigarettes per day: 0 If you are a former smoker, when did you quit?: 35 YRS AGO - Alcohol/Substance Use Hx Alcohol Use: No - Social History ADL: Independent History of Recent Travel: No Home Medications - Allergies Allergies/Adverse Reactions: Allergies Allergy/AdvReac Type Severity Reaction Status Date / Time shellfish derived Allergy Verified 03/03/20 19:36 IV CONTRAST AdvReac Intermediate confusion Uncoded 09/13/19 23:19 - Home Medications Home Medications: Ambulatory Orders Aspirin 81 mg PO DAILY 07/20/19 Citalopram Hydrobromide [Celexa -] 20 mg PO HS 07/20/19 Insulin (Levemir) [Levemir Vial] 38 units SQ BID 07/20/19 Insulin Sliding Scale [Novolog Vial Sliding Scale -] 0 units SQ ASDIR 07/20/19 Olmesartan Medoxomil [Benicar] 20 mg PO DAILY 07/20/19 Semaglutide [Ozempic] 1 vial SQ WEEKLY 07/20/19 Simvastatin 20 mg PO HS 07/20/19 Bimatoprost [Lumigan] 1 drop IO HS 09/13/19 Metformin HCl [Glucophage] 500 mg PO BID 09/13/19 Fluphenazine HCl [Prolixin] 1 mg PO DAILY PRN 01/25/20 Glipizide 5 mg PO DAILY 01/25/20 Zolpidem Tartrate [Ambien] 10 mg PO HS 01/25/20 Physical Examination Vital Signs: Vital Signs Temperature 98 F 03/03/20 19:56 Pulse Rate 86 03/03/20 19:56 Respiratory Rate 18 03/03/20 19:56 Blood Pressure 151/79 03/03/20 19:56 O2 Sat by Pulse Oximetry (%) 100 03/03/20 19:56 Labs: CBC, BMP 03/03/20 17:20 03/03/20 17:20 Problem List - Problems (1) Chest pain Code(s): R07.9 - CHEST PAIN, UNSPECIFIED (2) Diabetes mellitus Code(s): E11.9 - TYPE 2 DIABETES MELLITUS WITHOUT COMPLICATIONS Assessment/Plan serial CE Admit to Telemetry Cardio consult ASA. AM labs
--- OUTSIDE RECORDS SUMMARY | 2020-03-04 00:09 | XMS ---
:1960 Author Organization [facility] Support Name Relationship Address Phone MARCIO ARAGON DAUGHTER [address] [phone] [place] [address] RE, RETIRED Unavailable Unavailable Unavailable RE Unavailable Unavailable Unavailable BRET SINGH [address] [phone] [place] [address] BRET SINGH Spouse [address] [phone] [place] [address] Re-disclosure Warning The records that you are [...] is protected by Article 27-F of the [facility] Public Health law. If you continue you may haveaccess to information: Regarding HIV / AIDS; Provided by facilities licensed or operated by the [facility] Office of Mental Health; or Provided by the [facility] Office for People With Developmental Disabilities. If such information is present, then the following [facility] mandated warning applies: This information has been [...] law may result in a fine or detention sentence or both. A general authorization for the release of medical or other information is NOT sufficient authorization for further disclosure. Encounters Encounter Providers Location Date Indications Data Source(s ) Outpatient 03/22/2019 02:30:00 [facility] ([facility] EDT [facility]) Insurance Providers Payer name Policy type Policy ID Covered Covered libertarian's Policy P lexis / Coverage libertarian ID relationship to [facility] type [place] MEDICARE [id number] SP [id number] 35 5 MEDICAID [id number] SP [id number] MEDICAID [id number] SP [id number] MEDICARE [id number] SP [id number] 35 5 MEDICARE [id number] SP [id number] 35 5 MEDICARE [id number] SP [id number] 35 5 MEDICARE [id number] SP [id number] 35 5 MEDICARE [id number] SP [id number] 35 5 MEDICARE [id number] SP [id number] 35 5 [id number] 1 [id number] [place] [id number] 1 [id number] PART B [place] MEDIC[place] [id number] SP [id number] MEDICAID [id number] SP [id number] Results ID Date Data Source [id number] 02/14/2020 10:00:00 PM EDT [facility] Name Value Range Interpretation Code Description Data Candace rce(s) Supporting Document(s ) SARS-CoV-2 [facility] BY PCR This lab was ordered by [facility] and reported by [employer]. ID Date Data Source [id number] 10/06/2019 04:40:00 PM EDT [facility] Name Value Range Interpretation Description Data Sup porting Code Source(s) Document(s ) 2019 Novel [facility] Coronavirus RNA Interpretation Unspecified Specimen Qualitative SY Probe Detection This lab was ordered by [facility] and reported by [facility]. ID Date Data Source [id number] 08/18/2019 10:31:00 PM EDT [facility] Name Value Range Interpretation Description Data Sup porting Code Source(s) Document(s ) 2019 Novel [facility] Coronavirus RNA Interpretation Unspecified Specimen Qualitative SY Probe Detection This lab was ordered by [facility] and reported by [facility]. Procedure
[2020-03-04 01:35] VITALS: BMI 68.3
[2020-03-04] MEDS: metFORMIN HCL 500 MG TABLET (FP) PO SCH ×2 (06:23→17:30)
[2020-03-04] MEDS: INSULIN SLIDING SCALE (NOVOLOG) 1 VIAL SQ SCH ×4 (06:24→22:11)
[2020-03-04] MEDS: glipiZIDE 5 MG TABLET (FP) PO SCH (06:24)
--- NOTE | 2020-03-04 09:53 | EKG ---
Test Reason : Blood Pressure : / mmHG Vent. Rate : 086 BPM Atrial Rate : 086 BPM P-R Int : 162 ms QRS Dur : 082 ms QT Int : 372 ms P-R-T Axes : 069 013 067 degrees QTc Int : 445 ms SINUS RHYTHM WITH PREMATURE SUPRAVENTRICULAR COMPLEXES POSSIBLE LEFT ATRIAL ENLARGEMENT BORDERLINE ECG WHEN COMPARED WITH ECG OF 01-MAR-2020 19:00, NONSPECIFIC T WAVE ABNORMALITY NO LONGER EVIDENT IN INFERIOR LEADS Confirmed by MD Silver, Marcos ([id number]) on 03/04/2020 9:53:12 AM Referred By: DR CHAVEZ Confirmed By:Marcos Sheppard MD
[2020-03-04] MEDS: HEPARIN NA (PORCINE) 5,000 UNITS/ML 1ML VIAL SQ SCH ×2 (10:29→22:44)
[2020-03-04] MEDS: ASPIRIN 81 MG CHEWABLE TABLETS PO SCH (10:29)
[2020-03-04] MEDS: LOSARTAN POTASSIUM 50 MG TABLET PO SCH (10:29)
[2020-03-04] MEDS: INSULIN (LEVEMIR) 100 UNITS/ML UNITS SQ SCH ×2 (10:30→22:05)
--- NOTE | 2020-03-04 12:08 | CON.CARD ---
Cardiology Consult (text) - Consultation Consultation Note: Consult Specialty:: Cardiology Referred by:: Medicine Reason for Consultation:: chest tightness - History of Present Illness Chief Complaint: chest tightness, palps History of Present Illness: 59F h/o DM, HTN, HLD p/w L sided chest tightness for the last few days. Has been stressed out recently, her was diagnosed with COVID a few days ago, he is at home with more mild symptoms. She has not had fever, cough but does have runny nose and a change in taste. She noticed chest tightness at rest intermittently the last few days associated with dyspnea. has had similar chest pain with stress before. Sees Dr. Brennan for cardio. still having chest tightness today. - Alcohol/Substance Use Hx Alcohol Use: No - Smoking History Smoking history: Never smoked Have you smoked in the past 12 months: No Aproximately how many cigarettes per day: 0 If you are a former smoker, when did you quit?: 1994 Home Medications - Allergies Allergies/Adverse Reactions: Allergies Allergy/AdvReac Type Severity Reaction Status Date / Time shellfish derived Allergy Verified 03/03/20 19:36 IV CONTRAST AdvReac Intermediate confusion Uncoded 09/13/19 23:19 Home Medications Medication Instructions Recorded Aspirin 81 mg PO DAILY 07/20/19 Citalopram Hydrobromide [Celexa -] 20 mg PO HS 07/20/19 Insulin (Levemir) [Levemir Vial] 38 units SQ BID 07/20/19 Insulin Sliding Scale [Novolog 0 units SQ ASDIR 07/20/19 Vial Sliding Scale -] Olmesartan Medoxomil [Benicar] 20 mg PO DAILY 07/20/19 Semaglutide [Ozempic] 1 vial SQ WEEKLY 07/20/19 Simvastatin 20 mg PO HS 07/20/19 Bimatoprost [Lumigan] 1 drop IO HS 09/13/19 Metformin HCl [Glucophage] 500 mg PO BID 09/13/19 Fluphenazine HCl [Prolixin] 1 mg PO DAILY PRN 01/25/20 Glipizide 5 mg PO DAILY 01/25/20 Zolpidem Tartrate [Ambien] 10 mg PO HS 01/25/20 Pantoprazole Sodium 40 mg PO DAILY 03/04/20 Family Medical History Family History: Unremarkable Review of Systems - Review of Systems Constitutional: reports: No Symptoms Eyes: reports: No Symptoms HENT: reports: No Symptoms Neck: reports: No Symptoms Cardiovascular: reports: No Symptoms Respiratory: reports: No Symptoms Gastrointestinal: reports: No Symptoms Genitourinary: reports: No Symptoms Musculoskeletal: reports: No Symptoms Integumentary: reports: No Symptoms Neurological: reports: No Symptoms Endocrine: reports: No Symptoms Hematology/Lymphatic: reports: No Symptoms Psychiatric: reports: No Symptoms Vital Signs: Vital Signs Period Temp Pulse Resp BP Sys/Molina Pulse Ox Last 24 Hr 97.8 F-98.5 F 79-98 18-20 124-178/42-97 97-100 Constitutional: Yes: No Distress, Calm Eyes: Yes: Conjunctiva Clear HENT: Yes: Atraumatic, Normocephalic Neck: Yes: Supple, Trachea Midline Respiratory: Yes: Regular, CTA Bilaterally Gastrointestinal: Yes: Normal Bowel Sounds, Soft Cardiovascular: Yes: Regular Rate and Rhythm Extremities: No: Cold Edema: No Integumentary: No: Jaundice Neurological: Yes: Alert, Oriented Psychiatric: No: Agitated Laboratory Last Values WBC 8.9 K/mm3 (4.0-10.8) 03/03/20 17:20 RBC 4.17 M/mm3 (3.60-5.2) 03/03/20 17:20 Hgb 12.3 GM/dl (10.7-15.3) 03/03/20 17:20 Hct 37.8 % (32.4-45.2) 03/03/20 17:20 MCV 90.6 fl (80-96) 03/03/20 17:20 MCH 29.5 pg (25.7-33.7) 03/03/20 17:20 MCHC 32.6 g/dl (32.0-36.0) 03/03/20 17:20 RDW 14.5 % (11.6-15.6) 03/03/20 17:20 Plt Count 435 K/MM3 (134-434) H 03/03/20 17:20 MPV 7.9 fl (7.5-11.1) 03/03/20 17:20 Absolute Neuts (auto) 6.3 K/mm3 03/03/20 17:20 Neutrophils % 71.6 % (42.8-82.8) 03/03/20 17:20 Lymphocytes % 22.1 % (8-40) 03/03/20 17:20 Monocytes % 5.2 % (3.8-10.2) 03/03/20 17:20 Eosinophils % 0.6 % (0-4.5) 03/03/20 17:20 Basophils % 0.5 % (0-2.0) 03/03/20 17:20 Sodium 139 mmol/L (136-145) 03/03/20 17:20 Potassium 4.0 mmol/L (3.5-5.1) 03/03/20 17:20 Chloride 106 mmol/L (98-107) 03/03/20 17:20 Carbon Dioxide 27 mmol/L (21-32) 03/03/20 17:20 Anion Gap 6 MMOL/L (8-16) L 03/03/20 17:20 BUN 16.0 mg/dl (7-18) 03/03/20 17:20 Creatinine 0.7 mg/dl (0.55-1.3) 03/03/20 17:20 Est GFR (CKD-EPI)AfAm 109.15 03/03/20 17:20 Est GFR (CKD-EPI)NonAf 94.17 03/03/20 17:20 POC Glucometer 112 UNITS (80-120) 03/03/20 22:17 Random Glucose 259 mg/dl (74-106) H 03/03/20 17:20 Calcium 9.3 mg/dl (8.5-10) 03/03/20 17:20 Total Bilirubin 0.4 mg/dl (0.2-1) 03/03/20 17:20 AST 19 U/L (15-37) 03/03/20 17:20 ALT 18 U/L (13-61) 03/03/20 17:20 Alkaline Phosphatase 90 U/L (45-117) 03/03/20 17:20 Creatine Kinase 52 U/L (26-192) 03/04/20 09:10 CK-MB (CK-2) 1.5 ng/mL (0.5-3.6) 03/03/20 17:20 Troponin I < 0.02 ng/ml (0.00-0.05) 03/04/20 09:10 Total Protein 7.6 g/dl (6.4-8.2) 03/03/20 17:20 Albumin 4.0 g/dl (3.4-5.0) 03/03/20 17:20 Assessment/Plan EKG sinus, nl intervals, no ischemic changes CXR: no acute process tele: sinus Chest tightness, dyspnea, elevated troponin - has had similar symptoms in the past, stress echo unremarkable in 2019. prior admissions trop was negative - here mildly elevated to 0.25 with ongoing chest tightness, also runny nose and change in taste with with COVID - no EKG change, trop indeterminate range, less likely ACS - check COVID serology - if COVID negative, plan for nuclear stress test HTN - cont home meds HLD - cont statin DM - manage per primary
--- NOTE | 2020-03-04 20:10 | PN ---
Progress Note, Physician Chief Complaint: feels better repeat CE negative; transferred to [facility] from [facility] for first trop positive 0.25 but repeat x2 negative chart tests and consults reviewed and dw pt pt seen in full PPE - Current Medication List Current Medications: Active Medications Aspirin (Asa -) 81 mg PO DAILY [facility] Last Admin: 03/04/20 10:29 Dose: 81 mg Documented by: Atorvastatin Calcium (Lipitor -) [address] [facility] Citalopram Hydrobromide (Celexa -) 20 mg PO HS [facility] Last Admin: 03/03/20 22:53 Dose: 20 mg Documented by: Fluphenazine HCl (Prolixin) 1 mg PO DAILY PRN PRN Reason: ANXIETY Glipizide (Glucotrol -) 5 mg PO ACBK [facility] Last Admin: 03/04/20 06:24 Dose: Not Given Documented by: Heparin Sodium (Porcine) (Heparin -) 5,000 unit SQ BID [facility] Last Admin: 03/04/20 10:29 Dose: 5,000 unit Documented by: Insulin Aspart (Novolog Vial Sliding Scale -) 1 vial SQ [facility]; Protocol Last Admin: 03/04/20 17:30 Dose: 2 units Documented by: Insulin Detemir (Levemir Vial) 38 units SQ BID [facility] Last Admin: 03/04/20 10:30 Dose: 38 units Documented by: Losartan Potassium (Cozaar -) 50 mg PO DAILY [facility] Last Admin: 03/04/20 10:29 Dose: 50 mg Documented by: Metformin HCl (Glucophage -) 500 mg PO BIDAC [facility] Last Admin: 03/04/20 17:30 Dose: Not Given Documented by: Non-Formulary Medication (Bimatoprost [Lumigan]) 1 drop IO HS [facility] Last Admin: 03/03/20 22:54 Dose: Not Given Documented by: Pantoprazole Sodium (Protonix -) 40 mg PO DAILY [facility] - Objective Vital Signs: Vital Signs Temperature 98.3 F 03/04/20 17:00 Pulse Rate 100 H 03/04/20 17:00 Respiratory Rate 18 03/04/20 17:00 Blood Pressure 154/71 03/04/20 17:00 O2 Sat by Pulse Oximetry (%) 98 03/04/20 17:00 Constitutional: Yes: No Distress, Calm Eyes: Yes: Conjunctiva Clear HENT: Yes: Atraumatic Neck: Yes: Supple Cardiovascular: Yes: Regular Rate and Rhythm Respiratory: Yes: CTA Bilaterally Gastrointestinal: Yes: Soft. No: Tenderness Genitourinary: No: Hematuria Musculoskeletal: No: Joint Stiffness, Joint Swelling Extremities: No: Cold, Cool, Cyanosis Edema: No Integumentary: No: Rash, Venous Stasis Changes Neurological: Yes: Alert, Oriented ...Motor Strength: WNL Psychiatric: Yes: Alert, Oriented. No: Agitated, Suicidal Ideation Labs: CBC, BMP 03/03/20 17:20 03/03/20 17:20 - ....Imaging Other: Report Reviewed Assessment/Plan 59 YOF HTN HLP DM atypical CP and anxiety, first trop + repeat negative; recent exposure to covid ( diagnosed with covid last week sent home from ER) covid testing ordered but pt refused, said she was too anxious, however she agreed later - d/w staff to send it stat if covid negative to have stress test per cardio cont meds isolation precautions d/w pt and staff
[2020-03-04] MEDS: CITALOPRAM HYDROBROMIDE 20 MG TABLET PO SCH (22:04)
[2020-03-04] MEDS: PATIENT'S OWN MEDICATION (NON-FORMULARY) (Bimatoprost [Lumigan] 1 DROP) IO SCH (22:11)
[2020-03-05 06:42] LABS: HEMOGLOBIN 11.1 GM/dL (10.7-15.3); MCH 29.4 pg (25.7-33.7); MCHC 33.5 g/dl (32.0-36.0); MEAN CELL VOLUME 87.7 fl (80-96); MEAN PLT VOLUME 7.9 fl (7.5-11.1); PLATELET COUNT 321 K/MM3 (134-434); RBC 3.77 M/mm3 (3.60-5.2); RDW 15.7 % (11.6-15.6); WHITE BLOOD COUNT 8.2 K/mm3 (4.0-10.0)
[2020-03-05] MEDS: glipiZIDE 5 MG TABLET (FP) PO SCH (06:50)
[2020-03-05] MEDS: metFORMIN HCL 500 MG TABLET (FP) PO SCH ×2 (06:50→17:30)
[2020-03-05] MEDS: INSULIN SLIDING SCALE (NOVOLOG) 1 VIAL SQ SCH ×3 (06:50→17:30)
[2020-03-05 06:53] LABS: BLOOD UREA NITROGEN 12.1 mg/dL (7-18); CALCIUM 9.2 mg/dL (8.5-10.1); CREATININE 0.6 mg/dL (0.55-1.3); POTASSIUM 4.1 mmol/L (3.5-5.1)
--- NOTE | 2020-03-05 08:36 | DS ---
Physical Examination Vital Signs: Vital Signs Temperature 98.5 F 03/05/20 06:00 Pulse Rate 78 03/05/20 06:00 Respiratory Rate 18 03/05/20 06:00 Blood Pressure 128/66 03/05/20 06:00 O2 Sat by Pulse Oximetry (%) 95 03/04/20 21:00 Findings/Remarks: in bed NAD VSS CE negative; d/w cardio dr Longo - stress test could be done if covid nasal test negative; pt refused nasal covid test - aware of risks and consequences; no cp sob feels well wants to go home, d/w dr Longo - most likely [facility] ER TROP false + ; all rest CE negative; ok to DC home and f/u in office next week; pt said she will think about bliod serology covid testing Constitutional: Yes: No Distress, Calm Eyes: Yes: Conjunctiva Clear HENT: Yes: Atraumatic Neck: Yes: Supple Cardiovascular: Yes: Regular Rate and Rhythm Respiratory: Yes: CTA Bilaterally Gastrointestinal: Yes: Soft. No: Tenderness Renal/: No: Hematuria Musculoskeletal: No: Joint Stiffness, Joint Swelling Extremities: No: Cold, Cool, Cyanosis Edema: No Integumentary: No: Bruising, Rash, Venous Stasis Changes Neurological: Yes: Alert, Oriented ...Motor Strength: WNL Psychiatric: Yes: Alert, Oriented. No: Agitated, Suicidal Ideation Labs: CBC, BMP 03/05/20 05:55 03/05/20 05:55 Discharge Summary Problems reviewed: Yes Reason For Visit: CHEST PAIN Current Active Problems Chest pain (Acute) Diabetes mellitus (Acute) Procedures: Principal: 59 YOF HTN DM admitted with anxiety palp and cp after her was diagnosed with recurent covid Other Procedures: first trop > NL but all rest ce negative; seen by cardiology, monitored in telemetry; stress test could not be done because pt refused nasal covid test Hospital Course: pt improved and remained CP free; DC Home and f/u outpt within 1 week, RTER if recurrent c/o. Condition: Stable - Instructions Diet, Activity, Other Instructions: f/u PCP and cardiology in 2 weeks of DC; RTER if worse or recurrent symtpoms; quarantine home for 2 weeks Referrals: Mikaela Lofton [Staff Physician] - Bob Brennan MD [Staff Physician] - Disposition: HOME - Home Medications Comprehensive Discharge Medication List: Ambulatory Orders Aspirin 81 mg PO DAILY 07/20/19 Citalopram Hydrobromide [Celexa -] 20 mg PO HS 07/20/19 Insulin (Levemir) [Levemir Vial] 38 units SQ BID 07/20/19 Olmesartan Medoxomil [Benicar] 20 mg PO DAILY 07/20/19 Semaglutide [Ozempic] 1 vial SQ WEEKLY 07/20/19 Simvastatin 20 mg PO HS 07/20/19 Bimatoprost [Lumigan] 1 drop IO HS 09/13/19 Metformin HCl [Glucophage] 500 mg PO BID 09/13/19 Fluphenazine HCl [Prolixin] 1 mg PO DAILY PRN 01/25/20 Glipizide 5 mg PO DAILY 01/25/20 Pantoprazole Sodium 40 mg PO DAILY 03/04/20
[2020-03-05] MEDS ORDERED: PANTOPRAZOLE 40 MG TABLET PO SCH (10:00)
[2020-03-05] MEDS: ASPIRIN 81 MG CHEWABLE TABLETS PO SCH (10:53)
[2020-03-05] MEDS: LOSARTAN POTASSIUM 50 MG TABLET PO SCH (10:53)
[2020-03-05] MEDS: INSULIN (LEVEMIR) 100 UNITS/ML UNITS SQ SCH (10:54)
[2020-03-05] MEDS: HEPARIN NA (PORCINE) 5,000 UNITS/ML 1ML VIAL SQ SCH (10:54)
--- NOTE | 2020-03-05 16:36 | PN ---
Progress Note (short form) - Note Progress Note: Chief Complaint: chest tightness, palps History of Present Illness: 59F h/o DM, HTN, HLD p/w L sided chest tightness for the last few days. Has been stressed out recently, her was diagnosed with COVID a few days ago, he is at home with more mild symptoms. She has not had fever, cough but does have runny nose and a change in taste. She noticed chest tightness at rest intermittently the last few days associated with dyspnea. has had similar chest pain with stress before. cp, palps improved today. Current Medications Generic Name Dose Route Start Last Admin Trade Name Freq PRN Reason Stop Dose Admin Aspirin 81 mg 03/04/20 10:00 03/05/20 10:53 Asa - PO 81 mg DAILY BLANE Administration Atorvastatin Calcium 10 mg 03/03/20 23:03 03/04/20 22:04 Lipitor - PO 10 mg HS BLANE Administration Citalopram Hydrobromide 20 mg 03/03/20 22:00 03/04/20 22:04 Celexa - PO 20 mg HS BLANE Administration Fluphenazine HCl 1 mg 03/03/20 20:56 Prolixin PO DAILY PRN ANXIETY Glipizide 5 mg 03/04/20 07:00 03/05/20 06:50 Glucotrol - PO Not Given [facility] Heparin Sodium (Porcine) 5,000 unit 03/03/20 22:00 03/05/20 10:54 Heparin - SQ 5,000 unit BID BLANE Administration Insulin Aspart 1 vial 03/03/20 22:59 03/05/20 12:00 Novolog Vial Sliding Scale - SQ Not Given ACHS [facility] Protocol Insulin Detemir 38 units 03/03/20 22:00 03/05/20 10:54 Levemir Vial SQ 38 units BID BLANE Administration Losartan Potassium 50 mg 03/04/20 10:00 03/05/20 10:53 Cozaar - PO 50 mg DAILY BLANE Administration Metformin HCl 500 mg 03/03/20 22:58 03/05/20 06:50 Glucophage - PO Not Given BIDAC BLANE Non-Formulary Medication 1 drop 03/03/20 22:00 03/04/20 22:11 Bimatoprost [Lumigan] IO Not Given HS [facility] Pantoprazole Sodium 40 mg 03/05/20 10:00 03/05/20 10:54 Protonix - PO 40 mg DAILY BLANE Administration Vital Signs Temp 98.5 F 03/05/20 14:00 Pulse 90 03/05/20 14:00 Resp 18 03/05/20 14:00 BP 149/90 03/05/20 14:00 Pulse Ox 95 03/04/20 21:00 Intake & Output 03/04/20 03/05/20 03/05/20 23:59 11:59 23:59 Intake Total 760 120 Balance 760 120 Intake: Oral 760 120 Other: Voiding Method Toilet Toilet # Unmeasured Voids Void 2 2 Bowel Movement No No Constitutional: Yes: No Distress, Calm Eyes: Yes: Conjunctiva Clear Respiratory: Yes: Regular, CTA Bilaterally Gastrointestinal: Yes: Normal Bowel Sounds, Soft Cardiovascular: Yes: Regular Rate and Rhythm Extremities: No: Cold Edema: No Integumentary: No: Jaundice Neurological: Yes: Alert, Oriented Psychiatric: No: Agitated Laboratory Last Values WBC 8.2 K/mm3 (4.0-10.0) 03/05/20 05:55 RBC 3.77 M/mm3 (3.60-5.2) 03/05/20 05:55 Hgb 11.1 GM/dL (10.7-15.3) 03/05/20 05:55 Hct 33.0 % (32.4-45.2) 03/05/20 05:55 MCV 87.7 fl (80-96) 03/05/20 05:55 MCH 29.4 pg (25.7-33.7) 03/05/20 05:55 MCHC 33.5 g/dl (32.0-36.0) 03/05/20 05:55 RDW 15.7 % (11.6-15.6) H 03/05/20 05:55 Plt Count 321 K/MM3 (134-434) 03/05/20 05:55 MPV 7.9 fl (7.5-11.1) 03/05/20 05:55 Absolute Neuts (auto) 6.3 K/mm3 03/03/20 17:20 Neutrophils % 71.6 % (42.8-82.8) 03/03/20 17:20 Lymphocytes % 22.1 % (8-40) 03/03/20 17:20 Monocytes % 5.2 % (3.8-10.2) 03/03/20 17:20 Eosinophils % 0.6 % (0-4.5) 03/03/20 17:20 Basophils % 0.5 % (0-2.0) 03/03/20 17:20 Sodium 143 mmol/L (136-145) 03/05/20 05:55 Potassium 4.1 mmol/L (3.5-5.1) 03/05/20 05:55 Chloride 108 mmol/L (98-107) H 03/05/20 05:55 Carbon Dioxide 30 mmol/L (21-32) 03/05/20 05:55 Anion Gap 5 MMOL/L (8-16) L 03/05/20 05:55 BUN 12.1 mg/dL (7-18) 03/05/20 05:55 Creatinine 0.6 mg/dL (0.55-1.3) 03/05/20 05:55 Est GFR (CKD-EPI)AfAm 114.82 03/05/20 05:55 Est GFR (CKD-EPI)NonAf 99.07 03/05/20 05:55 POC Glucometer 238 UNITS (80-120) 03/04/20 12:44 Random Glucose 108 mg/dL (74-106) H 03/05/20 05:55 Calcium 9.2 mg/dL (8.5-10.1) 03/05/20 05:55 Total Bilirubin 0.4 mg/dl (0.2-1) 03/03/20 17:20 AST 19 U/L (15-37) 03/03/20 17:20 ALT 18 U/L (13-61) 03/03/20 17:20 Alkaline Phosphatase 90 U/L (45-117) 03/03/20 17:20 Creatine Kinase 40 U/L (26-192) 03/05/20 05:55 CK-MB (CK-2) 1.5 ng/mL (0.5-3.6) 03/03/20 17:20 Troponin I < 0.02 ng/ml (0.00-0.05) 03/05/20 05:55 Total Protein 7.6 g/dl (6.4-8.2) 03/03/20 17:20 Albumin 4.0 g/dl (3.4-5.0) 03/03/20 17:20 EKG sinus, nl intervals, no ischemic changes CXR: no acute process tele: sinus Chest tightness, dyspnea - has had similar symptoms in the past, stress echo unremarkable in 2019. prior admissions trop was negative and here again trops have remained negx3 (initial mild trop elevation was lab error and has been cancelled) - no EKG changes, no signs acs - given her has covid and she has mild covid type symptoms it is likely she also has covid which is causing her current chest sxs. she is refusing covid testing at this time. Pt should f/u in office after here covid sxs resolve and she has finished her quarantine. Cardiac powell ok for dc. HTN - cont home meds HLD - cont statin
[2020-03-05 19:31] VITALS: BP 141/85; PULSE 89; TEMP 98.9
== END 2020-03-05 21:15 | disposition home or self-care (01) | DRG 313 ==
LOC: FER 16:56 → J4S 03-04 00:04
PROVIDERS: ADMIT Internal Medicine; ATTEND Internal Medicine
DX: R07.89 Other chest pain (principal); E11.9 Type 2 diabetes mellitus without complications; I10 Essential (primary) hypertension; E78.5 Hyperlipidemia, unspecified; F41.9 Anxiety disorder, unspecified; R00.2 Palpitations; F41.0 Panic disorder [episodic paroxysmal anxiety]; Z20.828 Contact with and (suspected) exposure to other viral communicable diseases; K21.9 Gastro-esophageal reflux disease without esophagitis; R06.00 Dyspnea, unspecified
CPT/HCPCS: 36415; 71045-TC-FY; 80048; 80053; 82550; 82553; 82962; 84484; 85025; 85027; 93005; 93010; 99285-25; C9803; J0131; J1644; U0003

== ENCOUNTER 2020-05-05 17:37 | Emergency (ER) | payer OTHER ==
[2020-05-05 18:01] VITALS: BP 162/82; PULSE 89; TEMP 99; BMI 30.4
[2020-05-05 19:47] LABS: BASO % 0.4 % (0-2.0); EOS % 0.4 % (0-4.5); HEMATOCRIT 36.3 % (32.4-45.2); HEMOGLOBIN 11.7 GM/dl (10.7-15.3); LYMPH % 25.7 % (8-40); MCH 29.3 pg (25.7-33.7); MCHC 32.3 g/dl (32.0-36.0); MEAN CELL VOLUME 90.7 fl (80-96); MEAN PLT VOLUME 7.6 fl (7.5-11.1); MONO % 5.5 % (3.8-10.2); PLATELET COUNT 375 K/MM3 (134-434); RDW 14.6 % (11.6-15.6); WHITE BLOOD COUNT 7.7 K/mm3 (4.0-10.8)
[2020-05-05 19:59] LABS: ALBUMIN 3.9 g/dl (3.4-5.0); BILIRUBIN,TOTAL 0.3 mg/dl (0.2-1); CALCIUM 9.2 mg/dl (8.5-10); CREATININE 0.5 mg/dl (0.55-1.3); POTASSIUM 4.3 mmol/L (3.5-5.1); TOT PROT 7.2 g/dl (6.4-8.2)
== END 2020-05-05 20:24 | disposition home or self-care (01) ==
LOC: FER 17:37
DX: R53.1 Weakness (principal); F41.9 Anxiety disorder, unspecified
CPT/HCPCS: 36415; 80053; 84484; 85025; 93005; 99284-25; C9803; U0003

== ENCOUNTER 2020-05-26 07:26 | Emergency (ER) | payer OTHER ==
[2020-05-26 07:56] VITALS: BMI 32.2
[2020-05-26] MEDS ORDERED: SODIUM CHLORIDE 1,000 ML IV STA (08:33)
[2020-05-26] MEDS ORDERED: FAMOTIDINE 20 MG/50 ML IVPB 20 MG/50 ML MG IVPB ONE ×2 (08:33→08:49)
[2020-05-26] MEDS ORDERED: MAG HYDROX/AL HYDROX/SIMETH -MYLANTA- ORAL SUSPENSION PO ONE (08:34)
[2020-05-26] MEDS ORDERED: ACETAMINOPHEN 1000 MG/100 ML BAG IVPB ONE (08:34)
[2020-05-26] MEDS ORDERED: ACETAMINOPHEN INJECTION 100 ML IVPB ONE (08:48)
[2020-05-26] MEDS ORDERED: MAG HYDROX/AL HYDROX/SIMETH 30 ML UNIT-DOSE CUP ONE (08:49)
[2020-05-26 09:44] LABS: BASO % 0.6 % (0-2.0); EOS % 0.6 % (0-4.5); HEMATOCRIT 34.8 % (32.4-45.2); HEMOGLOBIN 11.6 GM/dL (10.7-15.3); MCHC 33.5 g/dl (32.0-36.0); MEAN CELL VOLUME 89.5 fl (80-96); MEAN PLT VOLUME 8.5 fl (7.5-11.1); MONO % 8.2 % (3.8-10.2); NEUT % 62.6 % (42.8-82.8); PLATELET COUNT 357 K/MM3 (134-434); RBC 3.88 M/mm3 (3.60-5.2); RDW 15.1 % (11.6-15.6); WHITE BLOOD COUNT 6.9 K/mm3 (4.0-10.0)
[2020-05-26 09:59] LABS: CHLORIDE 103 mmol/L (98-107); SODIUM 134 mmol/L (136-145)
[2020-05-26 10:01] LABS: CALCIUM 9.4 mg/dL (8.5-10.1)
[2020-05-26 10:02] LABS: ALBUMIN 3.5 g/dl (3.4-5.0); BLOOD UREA NITROGEN 12.8 mg/dL (7-18); CO2 27 mmol/L (21-32); GLUCOSE,RANDOM 174 mg/dL (74-106)
[2020-05-26 10:06] LABS: BILIRUBIN,TOTAL 0.4 mg/dL (0.2-1); CREATININE 0.9 mg/dL (0.55-1.3); SGOT/AST 76 U/L (15-37); TOT PROT 7.9 g/dl (6.4-8.2)
[2020-05-26 10:08] LABS: ALK PHOS 96 U/L (45-117)
[2020-05-26 10:31] LABS: ANION GAP 4 MMOL/L (8-16); SGPT/ALT 39 U/L (13-61)
[2020-05-26 11:04] LABS: URINE APPEARANCE CLEAR; URINE BILIRUBIN NEGATIVE (NEGATIVE); URINE COLOR YELLOW; URINE GLUCOSE (UA) NEGATIVE (NEGATIVE); URINE KETONE NEGATIVE (NEGATIVE); URINE LEUK ESTERASE NEGATIVE (NEGATIVE); URINE NITRITE NEGATIVE (NEGATIVE); URINE PROTEIN TRACE (NEGATIVE); URINE UROBILINOGEN 0.2 mg/dL (0.2-1.0)
[2020-05-26 13:23] VITALS: BP 135/74; PULSE 78; TEMP 98
== END 2020-05-26 13:20 | disposition home or self-care (01) ==
LOC: JER 07:26
PROC: 3E0333Z Introduction of Anti-inflammatory into Peripheral Vein, Percutaneous Approach (ICD-10-PCS; principal; 2020-05-26)
PROC: 3E033GC Introduction of Other Therapeutic Substance into Peripheral Vein, Percutaneous Approach (ICD-10-PCS; 2020-05-26)
PROC: 3E0337Z Introduction of Electrolytic and Water Balance Substance into Peripheral Vein, Percutaneous Approach (ICD-10-PCS; 2020-05-26)
DX: K21.00 Gastro-esophageal reflux disease with esophagitis, without bleeding (principal); F41.9 Anxiety disorder, unspecified; M54.41 Lumbago with sciatica, right side
CPT/HCPCS: 36415; 74176-TC; 80053; 81003; 82550; 82553; 84132; 84484; 85025; 93005; 93010; 99285-25; J0131

== ENCOUNTER 2020-06-12 20:58 | Emergency (ER) | payer OTHER ==
[2020-06-12 21:09] VITALS: BMI 30.2
[2020-06-12] MEDS ORDERED: ACETAMINOPHEN 325 MG TABLET (FP) PO ONE (21:57)
[2020-06-12] MEDS ORDERED: ACETAMINOPHEN 325 MG TABLET (FP) ONE (22:24)
[2020-06-12 22:33] LABS: BASO % 0.5 % (0-2.0); EOS % 0.7 % (0-4.5); HEMATOCRIT 35.3 % (32.4-45.2); HEMOGLOBIN 11.4 GM/dL (10.7-15.3); LYMPH % 26.4 % (8-40); MCH 29.2 pg (25.7-33.7); MCHC 32.3 g/dl (32.0-36.0); MEAN CELL VOLUME 90.4 fl (80-96); NEUT % 65.4 % (42.8-82.8); PLATELET COUNT 316 K/MM3 (134-434); RBC 3.91 M/mm3 (3.60-5.2); RDW 15.3 % (11.6-15.6); WHITE BLOOD COUNT 7.9 K/mm3 (4.0-10.0)
[2020-06-12 22:42] LABS: INR 0.98 (0.83-1.09); PROTHROMBIN TIME (PATIENT) 12.1 SEC (9.7-13.0)
[2020-06-12 22:54] LABS: CHLORIDE 106 mmol/L (98-107); SODIUM 141 mmol/L (136-145)
[2020-06-12 22:57] LABS: ALBUMIN 3.7 g/dl (3.4-5.0); ANION GAP 6 MMOL/L (8-16); BLOOD UREA NITROGEN 11.6 mg/dL (7-18); CALCIUM 9.8 mg/dL (8.5-10.1); CO2 29 mmol/L (21-32); GLUCOSE,RANDOM 241 mg/dL (74-106)
[2020-06-12 23:00] LABS: SGPT/ALT 37 U/L (13-61)
[2020-06-12 23:01] LABS: CREATININE 0.9 mg/dL (0.55-1.3); SGOT/AST 14 U/L (15-37)
[2020-06-12 23:02] LABS: BILIRUBIN,TOTAL 0.4 mg/dL (0.2-1); TOT PROT 7.5 g/dl (6.4-8.2)
[2020-06-12 23:03] LABS: ALK PHOS 102 U/L (45-117)
[2020-06-12 23:53] VITALS: BP 115/63; PULSE 85; TEMP 98.5
== END 2020-06-12 23:53 | disposition home or self-care (01) ==
LOC: JER 20:58
DX: R06.02 Shortness of breath (principal)
CPT/HCPCS: 36415; 71046-TC-FY; 80053; 82550; 84484; 85025; 85610; 93005; 93010; 99284-25; C9803; U0003

== ENCOUNTER 2020-06-15 08:12 | Emergency (ER) | payer OTHER ==
[2020-06-15 08:18] VITALS: BP 138/69; PULSE 83; TEMP 97.7; BMI 30.2
[2020-06-15] MEDS ORDERED: ACETAMINOPHEN 325 MG TABLET (FP) PO ONE (08:36)
[2020-06-15] MEDS ORDERED: METHOCARBAMOL 500 MG TABLET PO ONE (08:36)
[2020-06-15] MEDS ORDERED: ACETAMINOPHEN 325 MG TABLET (FP) ONE (08:39)
[2020-06-15] MEDS ORDERED: METHOCARBAMOL 500 MG TABLET ONE (08:40)
[2020-06-15 09:13] LABS: EPI CELLS 13 /uL (0-25.1); HYALINE CASTS 2 /uL (0-3.1); PH,URINE 5.5 (5.0-8.0); URINE APPEARANCE CLEAR; URINE BACTERIA 25 /uL (0-1359); URINE BILIRUBIN NEGATIVE (NEGATIVE); URINE COLOR YELLOW; URINE GLUCOSE (UA) NEGATIVE (NEGATIVE); URINE KETONE TRACE (NEGATIVE); URINE LEUK ESTERASE 1+ (NEGATIVE); URINE NITRITE NEGATIVE (NEGATIVE); URINE PROTEIN 2+ (NEGATIVE); URINE RBC 7 /uL (0-23.9); URINE UROBILINOGEN 0.2 mg/dL (0.2-1.0); URINE WBC 27 /uL (0-25.8)
== END 2020-06-15 10:03 | disposition home or self-care (01) ==
LOC: JERFT 08:12
DX: N30.00 Acute cystitis without hematuria (principal); M54.5 Low back pain
CPT/HCPCS: 36415; 70450-TC; 81003; 86769; 87086; 99284-25

== ENCOUNTER 2020-07-24 06:10 | Emergency (ER) | payer OTHER ==
[2020-07-24 06:26] VITALS: BMI 29.9
[2020-07-24] MEDS ORDERED: ACETAMINOPHEN 500 MG TABLET (FP) PO ONE (07:34)
[2020-07-24] MEDS ORDERED: ACETAMINOPHEN 325 MG TABLET (FP) ONE (07:44)
[2020-07-24 08:42] LABS: URINE APPEARANCE CLEAR; URINE BILIRUBIN NEGATIVE (NEGATIVE); URINE COLOR YELLOW; URINE GLUCOSE (UA) NEGATIVE (NEGATIVE); URINE KETONE NEGATIVE (NEGATIVE); URINE LEUK ESTERASE NEGATIVE (NEGATIVE); URINE NITRITE NEGATIVE (NEGATIVE); URINE PROTEIN TRACE (NEGATIVE); URINE UROBILINOGEN 0.2 mg/dL (0.2-1.0)
[2020-07-24 09:11] VITALS: BP 135/62; PULSE 66; TEMP 98
== END 2020-07-24 09:20 | disposition home or self-care (01) ==
LOC: JER 06:10
DX: M62.830 Muscle spasm of back (principal)
CPT/HCPCS: 81003; 87086; 93005; 93010; 99284-25

== ENCOUNTER 2020-08-01 06:21 | Emergency (ER) | payer OTHER ==
[2020-08-01 06:25] VITALS: PULSE 76; BMI 29.2
[2020-08-01] MEDS ORDERED: FAMOTIDINE 20 MG/50 ML IVPB 20 MG/50 ML MG IVPB ONE ×2 (06:41→06:49)
[2020-08-01] MEDS ORDERED: MAG HYDROX/AL HYDROX/SIMETH 30 ML UNIT-DOSE CUP PO ONE (06:41)
[2020-08-01] MEDS ORDERED: MAG HYDROX/AL HYDROX/SIMETH 30 ML UNIT-DOSE CUP ONE (06:49)
[2020-08-01 07:11] LABS: BASO % 0.5 % (0-2.0); EOS % 1.3 % (0-4.5); HEMOGLOBIN 11.9 GM/dL (10.7-15.3); LYMPH % 34.1 % (8-40); MCH 30.5 pg (25.7-33.7); MCHC 34.1 g/dl (32.0-36.0); MEAN CELL VOLUME 89.4 fl (80-96); MEAN PLT VOLUME 8.1 fl (7.5-11.1); MONO % 7.5 % (3.8-10.2); NEUT % 56.6 % (42.8-82.8); PLATELET COUNT 333 K/MM3 (134-434); RBC 3.92 M/mm3 (3.60-5.2); RDW 15.4 % (11.6-15.6); WHITE BLOOD COUNT 9.3 K/mm3 (4.0-10.0)
[2020-08-01 07:41] LABS: POTASSIUM 3.8 mmol/L (3.5-5.1)
[2020-08-01 07:43] LABS: CALCIUM 9.5 mg/dL (8.5-10.1)
[2020-08-01 07:44] LABS: ALBUMIN 3.7 g/dl (3.4-5.0); BLOOD UREA NITROGEN 16.1 mg/dL (7-18)
[2020-08-01 07:47] LABS: CREATININE 0.7 mg/dL (0.55-1.3)
[2020-08-01 07:49] LABS: BILIRUBIN,TOTAL 0.2 mg/dL (0.2-1); TOT PROT 7.8 g/dl (6.4-8.2)
[2020-08-01 09:01] VITALS: BP 110/78; TEMP 98.2
== END 2020-08-01 09:00 | disposition home or self-care (01) ==
LOC: JER 06:21
PROC: 3E033GC Introduction of Other Therapeutic Substance into Peripheral Vein, Percutaneous Approach (ICD-10-PCS; principal; 2020-08-01)
DX: R73.9 Hyperglycemia, unspecified (principal); K21.9 Gastro-esophageal reflux disease without esophagitis
CPT/HCPCS: 36415; 80053; 82962; 84484; 85025; 93005; 93010; 99284-25

== ENCOUNTER 2020-08-16 19:07 | Emergency (ER) | payer OTHER ==
[2020-08-16 19:26] VITALS: TEMP 98.5; BMI 30.2
[2020-08-16 21:27] LABS: BASO % 0.5 % (0-2.0); EOS % 0.6 % (0-4.5); HEMATOCRIT 35.2 % (32.4-45.2); HEMOGLOBIN 11.5 GM/dL (10.7-15.3); LYMPH % 34.3 % (8-40); MCH 29.5 pg (25.7-33.7); MCHC 32.7 g/dl (32.0-36.0); MEAN PLT VOLUME 8.1 fl (7.5-11.1); MONO % 6.9 % (3.8-10.2); NEUT % 57.7 % (42.8-82.8); PLATELET COUNT 352 K/MM3 (134-434); RBC 3.91 M/mm3 (3.60-5.2); WHITE BLOOD COUNT 9.1 K/mm3 (4.0-10.0)
[2020-08-16 21:51] LABS: CHLORIDE 105 mmol/L (98-107); POTASSIUM 4.4 mmol/L (3.5-5.1); SODIUM 141 mmol/L (136-145)
[2020-08-16 21:58] LABS: ALBUMIN 3.6 g/dl (3.4-5.0); ANION GAP 6 MMOL/L (8-16); BLOOD UREA NITROGEN 16.8 mg/dL (7-18); CALCIUM 9.6 mg/dL (8.5-10.1); CO2 30 mmol/L (21-32); GLUCOSE,RANDOM 157 mg/dL (74-106)
[2020-08-16 22:00] LABS: ALK PHOS 103 U/L (45-117)
[2020-08-16 22:01] LABS: PHOSPHOROUS 3.5 mg/dL (2.5-4.9); SGOT/AST 13 U/L (15-37); SGPT/ALT 33 U/L (13-61)
[2020-08-16 22:02] LABS: BILIRUBIN,TOTAL 0.2 mg/dL (0.2-1); CREATININE 0.8 mg/dL (0.55-1.3); TOT PROT 7.6 g/dl (6.4-8.2)
[2020-08-16] MEDS ORDERED: FAMOTIDINE 20 MG TABLET PO ONE (22:49)
[2020-08-16] MEDS ORDERED: MAG HYDROX/AL HYDROX/SIMETH 30 ML UNIT-DOSE CUP PO ONE (22:49)
[2020-08-16] MEDS ORDERED: FAMOTIDINE 20 MG TABLET ONE (23:29)
[2020-08-16] MEDS ORDERED: MAG HYDROX/AL HYDROX/SIMETH 30 ML UNIT-DOSE CUP ONE (23:29)
[2020-08-16 23:40] VITALS: BP 122/73; PULSE 79
== END 2020-08-16 23:40 | disposition home or self-care (01) ==
LOC: JER 19:07
DX: R06.02 Shortness of breath (principal); R53.83 Other fatigue; R07.9 Chest pain, unspecified
CPT/HCPCS: 36415; 71045-TC-FY; 80053; 82550; 83735; 84100; 84484; 85025; 93005; 93010; 99284-25

== ENCOUNTER 2020-08-30 13:17 | Emergency (ER) | payer OTHER ==
[2020-08-30 13:46] VITALS: BP 132/80; PULSE 83; TEMP 97.9; BMI 30.4
== END 2020-08-30 14:10 | disposition home or self-care (01) ==
LOC: JER 13:17 → JERFT 13:17
DX: J32.9 Chronic sinusitis, unspecified (principal); R09.81 Nasal congestion
CPT/HCPCS: 99283-25

== ENCOUNTER 2020-10-29 11:42 | Emergency (ER) | payer OTHER ==
[2020-10-29 11:53] VITALS: BP 100/60; PULSE 101; TEMP 98.4; BMI 29.9
[2020-10-29] MEDS ORDERED: ACETAMINOPHEN 500 MG TABLET (FP) PO ONE (12:21)
[2020-10-29] MEDS ORDERED: ACETAMINOPHEN 500 MG TABLET (FP) ONE (12:33)
== END 2020-10-29 12:41 | disposition home or self-care (01) ==
LOC: JERFT 11:42
DX: M62.830 Muscle spasm of back (principal)
CPT/HCPCS: 99283-25

== ENCOUNTER 2021-01-05 15:19 | Emergency (ER) | payer OTHER ==
[2021-01-05 15:50] VITALS: BP 142/74; PULSE 86; TEMP 98.4
== END 2021-01-05 18:13 | disposition home or self-care (01) ==
LOC: JERFT 15:19
DX: B34.9 Viral infection, unspecified (principal)
CPT/HCPCS: 82962; 93005; 93010; 99284-25; C9803; U0003; U0005

== ENCOUNTER 2021-01-31 14:20 | Emergency (ER) | payer OTHER ==
[2021-01-31 14:35] VITALS: BMI 30.8
[2021-01-31 15:44] VITALS: TEMP 98.4
[2021-01-31 16:59] LABS: EOS % 0.7 % (0-4.5); HEMATOCRIT 34.6 % (32.4-45.2); HEMOGLOBIN 11.7 GM/dL (10.7-15.3); LYMPH % 33.2 % (8-40); MCHC 33.8 g/dl (32.0-36.0); MEAN CELL VOLUME 88.8 fl (80-96); MONO % 7.8 % (3.8-10.2); NEUT % 57.3 % (42.8-82.8); RBC 3.89 M/mm3 (3.60-5.2); RDW 15.9 % (11.6-15.6); WHITE BLOOD COUNT 8.5 K/mm3 (4.0-10.0)
[2021-01-31 17:06] LABS: CHLORIDE 108 mmol/L (98-107); SODIUM 140 mmol/L (136-145)
[2021-01-31 17:10] LABS: ALBUMIN 3.5 g/dl (3.4-5.0); ANION GAP 6 MMOL/L (8-16); BLOOD UREA NITROGEN 15.8 mg/dL (7-18); CO2 26 mmol/L (21-32); GLUCOSE,RANDOM 141 mg/dL (74-106)
[2021-01-31 17:13] LABS: CREATININE 0.6 mg/dL (0.55-1.3); SGOT/AST 7 U/L (15-37); SGPT/ALT 24 U/L (13-61)
[2021-01-31 17:14] LABS: BILIRUBIN,TOTAL 0.4 mg/dL (0.2-1); TOT PROT 7.6 g/dl (6.4-8.2)
[2021-01-31 17:15] LABS: ALK PHOS 91 U/L (45-117)
[2021-01-31] MEDS ORDERED: ALPRAZolam 1 MG TABLET PO ONE (17:26)
[2021-01-31 17:59] VITALS: BP 161/82; PULSE 82
[2021-01-31 18:11] LABS: MEAN PLT VOLUME 8.3 fl (7.5-11.1); PLATELET COUNT 143 10^3/uL (134-434)
[2021-01-31 18:12] LABS: PLATELET ESTIMATE NORMAL
== END 2021-01-31 18:00 | disposition home or self-care (01) ==
LOC: JER 14:20
DX: R42 Dizziness and giddiness (principal); R00.2 Palpitations
CPT/HCPCS: 36415; 80053; 82550; 84484; 85025; 93005; 93010; 99284-25

== ENCOUNTER 2021-02-24 03:39 | Emergency (ER) | payer OTHER ==
[2021-02-24] MEDS ORDERED: ACETAMINOPHEN 325 MG TABLET (FP) PO ONE (05:01)
[2021-02-24] MEDS ORDERED: ACETAMINOPHEN 325 MG TABLET (FP) ONE (05:09)
[2021-02-24 05:10] LABS: BASO % 0.5 % (0-2.0); EOS % 1.2 % (0-4.5); HEMATOCRIT 34.8 % (32.4-45.2); HEMOGLOBIN 11.4 GM/dL (10.7-15.3); LYMPH % 32.6 % (8-40); MCH 29.7 pg (25.7-33.7); MCHC 32.9 g/dl (32.0-36.0); MEAN CELL VOLUME 90.3 fl (80-96); MEAN PLT VOLUME 8.1 fl (7.5-11.1); MONO % 8.1 % (3.8-10.2); NEUT % 57.6 % (42.8-82.8); PLATELET COUNT 336 10^3/uL (134-434); RBC 3.85 M/mm3 (3.60-5.2); RDW 15.5 % (11.6-15.6); WHITE BLOOD COUNT 10.3 K/mm3 (4.0-10.0)
[2021-02-24 05:28] LABS: CHLORIDE 107 mmol/L (98-107); SODIUM 141 mmol/L (136-145)
[2021-02-24 05:30] LABS: CALCIUM 9.2 mg/dL (8.5-10.1)
[2021-02-24 05:31] LABS: ALBUMIN 3.4 g/dl (3.4-5.0); ANION GAP 8 MMOL/L (8-16); BLOOD UREA NITROGEN 21.2 mg/dL (7-18); CO2 27 mmol/L (21-32); GLUCOSE,RANDOM 177 mg/dL (74-106); MAGNESIUM 1.7 mg/dL (1.8-2.4)
[2021-02-24 05:34] LABS: CREATININE 0.7 mg/dL (0.55-1.3); SGOT/AST 19 U/L (15-37); SGPT/ALT 32 U/L (13-61)
[2021-02-24 05:35] LABS: BILIRUBIN,TOTAL < 0.1 mg/dL (0.2-1); TOT PROT 7.4 g/dl (6.4-8.2)
[2021-02-24 05:37] LABS: ALK PHOS 92 U/L (45-117)
[2021-02-24 05:43] LABS: INR 0.95 (0.83-1.09); PROTHROMBIN TIME (PATIENT) 11.7 SEC (9.7-13.0)
[2021-02-24 05:46] LABS: ACTIVATED PTT 30.7 SECONDS (25.2-36.5)
[2021-02-24 05:52] VITALS: BP 147/77; PULSE 74; TEMP 97.9
== END 2021-02-24 06:14 | disposition home or self-care (01) ==
LOC: JER 03:39
DX: G44.209 Tension-type headache, unspecified, not intractable (principal)
CPT/HCPCS: 36415; 71046-TC-FY; 80053; 82550; 83735; 84484; 85025; 85610; 85730; 93005; 93010; 99285-25

== ENCOUNTER 2021-04-23 07:07 | Emergency (ER) | payer OTHER ==
[2021-04-23 07:25] VITALS: BP 165/78; PULSE 78; TEMP 97.6; BMI 30.2
[2021-04-23] MEDS ORDERED: LORazepam 0.5 MG TABLET PO ONE (07:58)
[2021-04-23] MEDS ORDERED: LORazepam 0.5 MG TABLET ONE ×2 (08:01→08:22)
== END 2021-04-23 09:18 | disposition home or self-care (01) ==
LOC: JER 07:07
DX: R07.89 Other chest pain (principal); F41.9 Anxiety disorder, unspecified
CPT/HCPCS: 93005; 93010; 99283-25

== ENCOUNTER 2021-04-26 00:31 | Emergency (ER) | payer OTHER ==
[2021-04-26] MEDS ORDERED: FAMOTIDINE 10 MG TABLET PO ONE (00:54)
[2021-04-26] MEDS ORDERED: MAG HYDROX/AL HYDROX/SIMETH -MYLANTA- ORAL SUSPENSION PO ONE (00:54)
[2021-04-26] MEDS ORDERED: FAMOTIDINE 20 MG TABLET PO ONE (00:54)
[2021-04-26 00:56] VITALS: BP 161/81; PULSE 79; BMI 29.2
[2021-04-26] MEDS ORDERED: FAMOTIDINE 20 MG TABLET ONE (01:07)
[2021-04-26] MEDS ORDERED: MAG HYDROX/AL HYDROX/SIMETH 30 ML UNIT-DOSE CUP ONE (01:08)
== END 2021-04-26 03:50 | disposition home or self-care (01) ==
LOC: JER 00:31
DX: J34.89 Other specified disorders of nose and nasal sinuses (principal)
CPT/HCPCS: 93005; 93010; 99284-25; C9803; U0003; U0005

== ENCOUNTER 2021-05-02 10:38 | Emergency (ER) | payer OTHER ==
[2021-05-02] MEDS ORDERED: SODIUM CHLORIDE 0.9% 500 ML INFUS.BAG IV ONE (10:50)
[2021-05-02] MEDS ORDERED: ONDANSETRON 4 MG/2 ML VIAL IVPUSH ONE (10:51)
[2021-05-02] MEDS ORDERED: MAG HYDROX/AL HYDROX/SIMETH 30 ML UNIT-DOSE CUP PO ONE (10:51)
[2021-05-02] MEDS ORDERED: ONDANSETRON 4 MG/2 ML VIAL ONE (11:13)
[2021-05-02] MEDS ORDERED: MAG HYDROX/AL HYDROX/SIMETH 30 ML UNIT-DOSE CUP ONE (11:13)
[2021-05-02 12:41] LABS: BASO % 0.4 % (0-2.0); CHLORIDE 109 mmol/L (98-107); EOS % 0.8 % (0-4.5); HEMATOCRIT 36.3 % (32.4-45.2); HEMOGLOBIN 12.2 GM/dL (10.7-15.3); LYMPH % 31.7 % (8-40); MCH 29.8 pg (25.7-33.7); MCHC 33.7 g/dl (32.0-36.0); MEAN CELL VOLUME 88.6 fl (80-96); MEAN PLT VOLUME 8.9 fl (7.5-11.1); MONO % 6.7 % (3.8-10.2); NEUT % 60.4 % (42.8-82.8); PLATELET COUNT 243 10^3/uL (134-434); RBC 4.09 M/mm3 (3.60-5.2); RDW 15.4 % (11.6-15.6); SODIUM 143 mmol/L (136-145); WHITE BLOOD COUNT 8.7 K/mm3 (4.0-10.0)
[2021-05-02 12:45] LABS: ALBUMIN 3.5 g/dl (3.4-5.0); ANION GAP 8 MMOL/L (8-16); BLOOD UREA NITROGEN 11.2 mg/dL (7-18); CALCIUM 9.4 mg/dL (8.5-10.1); CO2 26 mmol/L (21-32); GLUCOSE,RANDOM 152 mg/dL (74-106); LIPASE 210 U/L (73-393)
[2021-05-02 12:47] LABS: CREATININE 0.6 mg/dL (0.55-1.3); SGOT/AST 19 U/L (15-37); SGPT/ALT 29 U/L (13-61)
[2021-05-02 12:49] LABS: BILIRUBIN,TOTAL 0.2 mg/dL (0.2-1); TOT PROT 7.9 g/dl (6.4-8.2)
[2021-05-02 12:51] LABS: ALK PHOS 95 U/L (45-117)
[2021-05-02] MEDS ORDERED: FAMOTIDINE 20 MG TABLET PO ONE (12:51)
[2021-05-02 12:53] LABS: PLATELET ESTIMATE ADEQUATE
[2021-05-02] MEDS ORDERED: FAMOTIDINE 20 MG TABLET ONE (12:59)
[2021-05-02 14:06] LABS: EPI CELLS 7 /uL (0-25.1); HYALINE CASTS 0 /uL (0-3.1); PH,URINE 5.5 (5.0-8.0); URINE APPEARANCE CLEAR; URINE BACTERIA 29 /uL (0-1359); URINE BILIRUBIN NEGATIVE (NEGATIVE); URINE COLOR YELLOW; URINE GLUCOSE (UA) NEGATIVE (NEGATIVE); URINE KETONE NEGATIVE (NEGATIVE); URINE LEUK ESTERASE 1+ (NEGATIVE); URINE NITRITE NEGATIVE (NEGATIVE); URINE PROTEIN NEGATIVE (NEGATIVE); URINE RBC 8 /uL (0-23.9); URINE UROBILINOGEN 0.2 mg/dL (0.2-1.0); URINE WBC 40 /uL (0-25.8)
[2021-05-02 14:19] VITALS: BP 140/80; PULSE 90; TEMP 98.1
== END 2021-05-02 14:21 | disposition home or self-care (01) ==
LOC: JER 10:38
DX: R19.7 Diarrhea, unspecified (principal)
CPT/HCPCS: 36415; 80053; 81003; 83690; 84484; 85025; 87086; 93005; 93010; 99284-25

== ENCOUNTER 2021-06-09 20:19 | Emergency (ER) | payer OTHER ==
[2021-06-09 20:40] VITALS: TEMP 98.8; BMI 29.2
[2021-06-09 20:45] VITALS: BP 158/74; PULSE 88
[2021-06-09 21:33] LABS: VENOUS BASE EXCESS 1.4 mmol/L (-2-2); VENOUS O2 SATURATION 79.2 % (70-80); VENOUS PH 7.374 (7.310-7.410)
[2021-06-09 21:35] LABS: BASO % 0.3 % (0-2.0); EOS % 0.2 % (0-4.5); HEMATOCRIT 36.7 % (32.4-45.2); HEMOGLOBIN 12.1 GM/dL (10.7-15.3); LYMPH % 25.8 % (8-40); MCH 29.2 pg (25.7-33.7); MEAN CELL VOLUME 88.4 fl (80-96); MEAN PLT VOLUME 7.6 fl (7.5-11.1); MONO % 6.8 % (3.8-10.2); NEUT % 66.9 % (42.8-82.8); PLATELET COUNT 329 10^3/uL (134-434); RBC 4.15 M/mm3 (3.60-5.2); RDW 14.9 % (11.6-15.6); WHITE BLOOD COUNT 8.3 K/mm3 (4.0-10.0)
[2021-06-09 21:51] LABS: CHLORIDE 108 mmol/L (98-107); SODIUM 143 mmol/L (136-145)
[2021-06-09 21:53] LABS: BLOOD UREA NITROGEN 14.4 mg/dL (7-18); CALCIUM 10.7 mg/dL (8.5-10.1)
[2021-06-09 21:55] LABS: ALBUMIN 3.9 g/dl (3.4-5.0); ANION GAP 6 MMOL/L (8-16); CO2 29 mmol/L (21-32); GLUCOSE,RANDOM 154 mg/dL (74-106)
[2021-06-09 21:57] LABS: CREATININE 0.7 mg/dL (0.55-1.3); SGOT/AST 11 U/L (15-37); SGPT/ALT 27 U/L (13-61)
[2021-06-09 21:58] LABS: EPI CELLS 4 /uL (0-25.1); HYALINE CASTS 0 /uL (0-3.1); PH,URINE 5.5 (5.0-8.0); URINE APPEARANCE CLEAR; URINE BACTERIA 10 /uL (0-1359); URINE BILIRUBIN NEGATIVE (NEGATIVE); URINE COLOR YELLOW; URINE GLUCOSE (UA) NEGATIVE (NEGATIVE); URINE KETONE NEGATIVE (NEGATIVE); URINE LEUK ESTERASE NEGATIVE (NEGATIVE); URINE NITRITE NEGATIVE (NEGATIVE); URINE PROTEIN 1+ (NEGATIVE); URINE RBC 4 /uL (0-23.9); URINE UROBILINOGEN 0.2 mg/dL (0.2-1.0); URINE WBC 5 /uL (0-25.8)
[2021-06-09 21:58] LABS: BILIRUBIN,TOTAL 0.2 mg/dL (0.2-1); TOT PROT 7.8 g/dl (6.4-8.2)
[2021-06-09 22:01] LABS: ALK PHOS 77 U/L (45-117)
== END 2021-06-10 00:58 | disposition home or self-care (01) ==
LOC: JER 20:19
DX: R19.7 Diarrhea, unspecified (principal)
CPT/HCPCS: 36415; 70450-TC; 71045-TC-FY; 80053; 81003; 82010; 82550; 82803; 84484; 85025; 87086; 93005; 93010; 99284-25; C9803; U0003; U0005

== ENCOUNTER 2021-06-14 12:40 | Emergency (ER) | payer OTHER ==
[2021-06-14 13:33] VITALS: BMI 34.2
[2021-06-14] MEDS ORDERED: ACETAMINOPHEN 1000 MG/100 ML BAG IVPB ONE (16:10)
[2021-06-14] MEDS ORDERED: MAG HYDROX/AL HYDROX/SIMETH 30 ML UNIT-DOSE CUP PO ONE (16:10)
[2021-06-14] MEDS ORDERED: FAMOTIDINE 20 MG/50 ML IVPB 20 MG/50 ML MG IVPB ONE ×2 (16:10→16:53)
[2021-06-14] MEDS ORDERED: ONDANSETRON 4 MG/2 ML VIAL IVPUSH ONE (16:10)
[2021-06-14] MEDS ORDERED: SODIUM CHLORIDE 1,000 ML IV STA (16:10)
[2021-06-14] MEDS ORDERED: ACETAMINOPHEN INJECTION 100 ML IVPB ONE (16:52)
[2021-06-14] MEDS ORDERED: ONDANSETRON 4 MG/2 ML VIAL ONE (16:53)
[2021-06-14] MEDS ORDERED: MAG HYDROX/AL HYDROX/SIMETH 30 ML UNIT-DOSE CUP ONE (16:53)
[2021-06-14 17:18] LABS: BASO % 0.5 % (0-2.0); EOS % 0.3 % (0-4.5); HEMATOCRIT 37.2 % (32.4-45.2); HEMOGLOBIN 12.4 GM/dL (10.7-15.3); LYMPH % 25.2 % (8-40); MCH 29.6 pg (25.7-33.7); MCHC 33.3 g/dl (32.0-36.0); MEAN CELL VOLUME 88.8 fl (80-96); MEAN PLT VOLUME 7.7 fl (7.5-11.1); MONO % 7.1 % (3.8-10.2); NEUT % 66.9 % (42.8-82.8); PLATELET COUNT 307 10^3/uL (134-434); RBC 4.19 M/mm3 (3.60-5.2); RDW 15.1 % (11.6-15.6)
[2021-06-14 17:36] LABS: CHLORIDE 108 mmol/L (98-107); SODIUM 143 mmol/L (136-145)
[2021-06-14 17:39] LABS: ALBUMIN 3.8 g/dl (3.4-5.0); ANION GAP 6 MMOL/L (8-16); BLOOD UREA NITROGEN 9.7 mg/dL (7-18); CALCIUM 9.6 mg/dL (8.5-10.1); CO2 30 mmol/L (21-32); GLUCOSE,RANDOM 130 mg/dL (74-106)
[2021-06-14 17:40] LABS: LIPASE 247 U/L (73-393)
[2021-06-14 17:42] LABS: CREATININE 0.6 mg/dL (0.55-1.3); SGOT/AST 10 U/L (15-37); SGPT/ALT 23 U/L (13-61)
[2021-06-14 17:44] LABS: BILIRUBIN,TOTAL 0.2 mg/dL (0.2-1); INR 1.06 (0.83-1.09); PROTHROMBIN TIME (PATIENT) 12.2 SEC (9.7-13.0); TOT PROT 7.7 g/dl (6.4-8.2)
[2021-06-14 17:45] LABS: ALK PHOS 81 U/L (45-117)
[2021-06-14 19:42] LABS: PH,URINE 5.5 (5.0-8.0); URINE APPEARANCE CLOUDY; URINE BILIRUBIN NEGATIVE (NEGATIVE); URINE COLOR YELLOW; URINE GLUCOSE (UA) NEGATIVE (NEGATIVE); URINE KETONE NEGATIVE (NEGATIVE); URINE LEUK ESTERASE NEGATIVE (NEGATIVE); URINE NITRITE NEGATIVE (NEGATIVE); URINE PROTEIN TRACE (NEGATIVE); URINE UROBILINOGEN 0.2 mg/dL (0.2-1.0)
[2021-06-14 21:09] VITALS: BP 145/67; PULSE 73; TEMP 98.7
== END 2021-06-14 21:09 | disposition home or self-care (01) ==
LOC: JER 12:40
PROC: 3E0333Z Introduction of Anti-inflammatory into Peripheral Vein, Percutaneous Approach (ICD-10-PCS; principal; 2021-06-14)
PROC: 3E033GC Introduction of Other Therapeutic Substance into Peripheral Vein, Percutaneous Approach (ICD-10-PCS; 2021-06-14)
PROC: 3E033GC Introduction of Other Therapeutic Substance into Peripheral Vein, Percutaneous Approach (ICD-10-PCS; 2021-06-14)
PROC: 3E0337Z Introduction of Electrolytic and Water Balance Substance into Peripheral Vein, Percutaneous Approach (ICD-10-PCS; 2021-06-14)
DX: R10.84 Generalized abdominal pain (principal)
CPT/HCPCS: 36415; 80053; 81003; 82550; 83690; 84484; 85025; 85610; 87086; 93005; 93010; 99284-25; J0131

== ENCOUNTER 2021-06-16 14:32 | Emergency (ER) | payer OTHER ==
[2021-06-16 14:43] VITALS: BP 152/81; PULSE 89; TEMP 97.9; BMI 29.2
[2021-06-16 20:12] LABS: BASO % 0.2 % (0-2.0); EOS % 0.3 % (0-4.5); HEMATOCRIT 35.7 % (32.4-45.2); HEMOGLOBIN 11.8 GM/dL (10.7-15.3); LYMPH % 25.2 % (8-40); MCH 29.5 pg (25.7-33.7); MEAN CELL VOLUME 89.2 fl (80-96); MEAN PLT VOLUME 7.8 fl (7.5-11.1); MONO % 6.6 % (3.8-10.2); NEUT % 67.7 % (42.8-82.8); PLATELET COUNT 308 10^3/uL (134-434); RDW 15.7 % (11.6-15.6); WHITE BLOOD COUNT 8.3 K/mm3 (4.0-10.0)
[2021-06-16 20:31] LABS: BLOOD UREA NITROGEN 15.7 mg/dL (7-18)
[2021-06-16 20:32] LABS: ALBUMIN 3.8 g/dl (3.4-5.0)
[2021-06-16 20:35] LABS: CREATININE 0.7 mg/dL (0.55-1.3)
[2021-06-16 20:36] LABS: BILIRUBIN,TOTAL 0.2 mg/dL (0.2-1); TOT PROT 7.7 g/dl (6.4-8.2)
== END 2021-06-16 21:23 | disposition home or self-care (01) ==
LOC: JER 14:32
DX: K21.9 Gastro-esophageal reflux disease without esophagitis (principal)
CPT/HCPCS: 36415; 80053; 83690; 85025; 99283-25

== ENCOUNTER 2021-07-04 21:13 | Inpatient (IN) | payer OTHER ==
[2021-07-04 23:49] LABS: BASO % 0.3 % (0-2.0); EOS % 1.3 % (0-4.5); HEMATOCRIT 34.1 % (32.4-45.2); HEMOGLOBIN 11.2 GM/dL (10.7-15.3); LYMPH % 33.5 % (8-40); MCH 29.7 pg (25.7-33.7); MCHC 32.9 g/dl (32.0-36.0); MEAN CELL VOLUME 90.3 fl (80-96); MEAN PLT VOLUME 7.7 fl (7.5-11.1); MONO % 6.4 % (3.8-10.2); NEUT % 58.5 % (42.8-82.8); PLATELET COUNT 381 10^3/uL (134-434); RBC 3.78 M/mm3 (3.60-5.2); RDW 15.5 % (11.6-15.6); WHITE BLOOD COUNT 8.7 K/mm3 (4.0-10.0)
[2021-07-05 00:09] LABS: CALCIUM 9.2 mg/dL (8.5-10.1)
[2021-07-05 00:10] LABS: ALBUMIN 3.3 g/dl (3.4-5.0); BLOOD UREA NITROGEN 16.7 mg/dL (7-18)
[2021-07-05 00:13] LABS: CREATININE 0.7 mg/dL (0.55-1.3)
[2021-07-05 00:15] LABS: BILIRUBIN,TOTAL 0.2 mg/dL (0.2-1); TOT PROT 6.9 g/dl (6.4-8.2)
[2021-07-05] MEDS ORDERED: ACETAMINOPHEN 1000 MG/100 ML BAG IVPB ONE (03:22)
[2021-07-05] MEDS ORDERED: ACETAMINOPHEN INJECTION 100 ML IVPB ONE (03:58)
[2021-07-05] MEDS: MAG HYDROX/AL HYDROX/SIMETH 30 ML UNIT-DOSE CUP PO SCH ×3 (09:00→21:41)
[2021-07-05] MEDS: metoPROLOL SUCCINATE 25 MG TAB.SR.24H (FP) PO SCH ×2 (10:50→21:41)
[2021-07-05] MEDS: CITALOPRAM HYDROBROMIDE 20 MG TABLET PO SCH (10:50)
[2021-07-05] MEDS: LOSARTAN POTASSIUM 50 MG TABLET PO SCH (10:50)
[2021-07-05] MEDS: INSULIN SLIDING SCALE (NOVOLOG) 1 VIAL SQ SCH ×3 (10:50→21:41)
[2021-07-05 11:10] VITALS: BMI 27.8
[2021-07-05] MEDS ORDERED: BISACODYL 5 MG TABLET.DR (FP) PO ONE (16:32)
[2021-07-05] MEDS ORDERED: PEG 3350/NA SULF BICARB CL/KCL 4000 ML SOLN.RECON PO ONE (17:00)
[2021-07-05] MEDS ORDERED: ATORVASTATIN CA 10 MG TABLET (FP) PO SCH (22:00)
[2021-07-06] MEDS: MAG HYDROX/AL HYDROX/SIMETH 30 ML UNIT-DOSE CUP PO SCH ×2 (02:49→09:46)
[2021-07-06] MEDS: INSULIN SLIDING SCALE (NOVOLOG) 1 VIAL SQ SCH ×3 (06:00→16:22)
[2021-07-06] MEDS ORDERED: PANTOPRAZOLE 20 MG TABLET PO SCH (10:45)
[2021-07-06] MEDS: CITALOPRAM HYDROBROMIDE 20 MG TABLET PO SCH (12:08)
[2021-07-06] MEDS: metoPROLOL SUCCINATE 25 MG TAB.SR.24H (FP) PO SCH (12:08)
[2021-07-06] MEDS: LOSARTAN POTASSIUM 50 MG TABLET PO SCH (12:09)
[2021-07-06 16:13] VITALS: BP 146/88; PULSE 76; TEMP 98.7
== END 2021-07-06 17:34 | disposition home or self-care (01) | DRG 392 ==
LOC: JER 21:13 → JERBED 22:58 → J5S 07-05 09:14
PROVIDERS: ADMIT Internal Medicine; ATTEND Internal Medicine
PROC: 0DBM8ZX Excision of Descending Colon, Via Natural or Artificial Opening Endoscopic, Diagnostic (ICD-10-PCS; 2021-07-06)
PROC: 0DBL8ZX Excision of Transverse Colon, Via Natural or Artificial Opening Endoscopic, Diagnostic (ICD-10-PCS; 2021-07-06)
PROC: 0DB68ZX Excision of Stomach, Via Natural or Artificial Opening Endoscopic, Diagnostic (ICD-10-PCS; principal; 2021-07-06 10:15)
DX: K29.70 Gastritis, unspecified, without bleeding (principal); R10.9 Unspecified abdominal pain; I10 Essential (primary) hypertension; E78.5 Hyperlipidemia, unspecified; K21.9 Gastro-esophageal reflux disease without esophagitis; F41.9 Anxiety disorder, unspecified; F43.12 Post-traumatic stress disorder, chronic; K63.5 Polyp of colon; K57.90 Diverticulosis of intestine, part unspecified, without perforation or abscess without bleeding; E11.65 Type 2 diabetes mellitus with hyperglycemia
CPT/HCPCS: 36415; 74176-TC; 80053; 81003; 82962; 83690; 84484; 85025; 87086; 88305-TC; 93005; 93010; 99285-25; C9803; U0003; U0005

== ENCOUNTER 2021-07-14 04:54 | Emergency (ER) | payer OTHER ==
[2021-07-14 05:03] VITALS: TEMP 97.8; BMI 27.9
[2021-07-14 05:56] LABS: HEMATOCRIT 35.7 % (32.4-45.2); HEMOGLOBIN 11.4 GM/dL (10.7-15.3); MCH 28.9 pg (25.7-33.7); MEAN CELL VOLUME 90.5 fl (80-96); MEAN PLT VOLUME 8.3 fl (7.5-11.1); PLATELET COUNT 320 10^3/uL (134-434); RBC 3.95 M/mm3 (3.60-5.2); RDW 15.7 % (11.6-15.6); WHITE BLOOD COUNT 7.3 K/mm3 (4.0-10.0)
[2021-07-14 06:18] LABS: ALBUMIN 3.5 g/dl (3.4-5.0); BLOOD UREA NITROGEN 15.1 mg/dL (7-18); CALCIUM 9.8 mg/dL (8.5-10.1)
[2021-07-14 06:21] LABS: CREATININE 0.7 mg/dL (0.55-1.3)
[2021-07-14 06:23] LABS: BILIRUBIN,TOTAL 0.2 mg/dL (0.2-1); TOT PROT 7.4 g/dl (6.4-8.2)
[2021-07-14 06:26] LABS: N-TERMINAL BNP 98.4 pg/ml (5-125)
[2021-07-14 06:43] LABS: ACTIVATED PTT 33.1 SECONDS (25.2-36.5); INR 1.04 (0.83-1.09)
[2021-07-14] MEDS ORDERED: SODIUM CHLORIDE 0.9% 500 ML INFUS.BAG IV ONE (09:08)
[2021-07-14] MEDS ORDERED: ALPRAZolam 1 MG TABLET PO PRN (09:10)
[2021-07-14] MEDS ORDERED: ALPRAZolam 0.25 MG TABLET ONE (09:16)
[2021-07-14 10:11] LABS: PH,URINE 5.5 (5.0-8.0); URINE APPEARANCE CLEAR; URINE BILIRUBIN NEGATIVE (NEGATIVE); URINE COLOR YELLOW; URINE GLUCOSE (UA) NEGATIVE (NEGATIVE); URINE KETONE NEGATIVE (NEGATIVE); URINE LEUK ESTERASE NEGATIVE (NEGATIVE); URINE NITRITE NEGATIVE (NEGATIVE); URINE PROTEIN TRACE (NEGATIVE); URINE UROBILINOGEN 0.2 mg/dL (0.2-1.0)
[2021-07-14 10:15] VITALS: BP 159/91; PULSE 82
== END 2021-07-14 11:39 | disposition home or self-care (01) ==
LOC: JER 04:54
DX: R06.02 Shortness of breath (principal)
CPT/HCPCS: 36415; 71045-TC-FY; 80053; 81003; 82962; 83880; 84439; 84443; 84484; 85027; 85610; 85730; 87086; 93005; 93010; 99285-25

== ENCOUNTER 2021-09-22 22:45 | Emergency (ER) | payer OTHER ==
[2021-09-22 22:57] VITALS: BP 162/89; PULSE 94; TEMP 98.2; BMI 28.7
== END 2021-09-23 02:13 | disposition home or self-care (01) ==
LOC: JER 22:45
DX: R09.81 Nasal congestion (principal); J02.9 Acute pharyngitis, unspecified
CPT/HCPCS: 0241U-QW; 71046-TC-FY; 87807; 99284-25; C9803-CS; U0003; U0005

== ENCOUNTER 2021-10-08 14:14 | Emergency (ER) | payer OTHER ==
[2021-10-08 14:29] VITALS: BP 102/60; PULSE 93; TEMP 98.9; BMI 28.9
[2021-10-08] MEDS ORDERED: ACETAMINOPHEN 500 MG TABLET (FP) PO ONE (15:14)
[2021-10-08] MEDS ORDERED: ACETAMINOPHEN 500 MG TABLET (FP) ONE (15:52)
[2021-10-08 16:07] LABS: BASO % 0.5 % (0-2.0); EOS % 0.4 % (0-4.5); HEMATOCRIT 35.3 % (32.4-45.2); HEMOGLOBIN 11.8 GM/dL (10.7-15.3); LYMPH % 18.1 % (8-40); MCH 29.8 pg (25.7-33.7); MCHC 33.4 g/dl (32.0-36.0); MEAN CELL VOLUME 89.2 fl (80-96); MEAN PLT VOLUME 7.6 fl (7.5-11.1); MONO % 5.3 % (3.8-10.2); NEUT % 75.7 % (42.8-82.8); PLATELET COUNT 325 10^3/uL (134-434); RBC 3.95 M/mm3 (3.60-5.2); RDW 14.9 % (11.6-15.6); WHITE BLOOD COUNT 7.9 K/mm3 (4.0-10.0)
[2021-10-08 16:15] LABS: EPI CELLS 3 /uL (0-25.1); HYALINE CASTS 1 /uL (0-3.1); PH,URINE 5.5 (5.0-8.0); URINE APPEARANCE CLEAR; URINE BACTERIA 2 /uL (0-1359); URINE BILIRUBIN NEGATIVE (NEGATIVE); URINE COLOR YELLOW; URINE GLUCOSE (UA) 3+ (NEGATIVE); URINE KETONE TRACE (NEGATIVE); URINE LEUK ESTERASE NEGATIVE (NEGATIVE); URINE NITRITE NEGATIVE (NEGATIVE); URINE PROTEIN 1+ (NEGATIVE); URINE RBC 3 /uL (0-23.9); URINE UROBILINOGEN 0.2 mg/dL (0.2-1.0); URINE WBC 2 /uL (0-25.8)
[2021-10-08 16:33] LABS: BLOOD UREA NITROGEN 15.6 mg/dL (7-18); CALCIUM 9.4 mg/dL (8.5-10.1)
[2021-10-08 16:34] LABS: ALBUMIN 3.6 g/dl (3.4-5.0)
[2021-10-08 16:37] LABS: CREATININE 0.7 mg/dL (0.55-1.3)
[2021-10-08 16:38] LABS: BILIRUBIN,TOTAL 0.5 mg/dL (0.2-1); TOT PROT 7.5 g/dl (6.4-8.2)
== END 2021-10-08 19:13 | disposition home or self-care (01) ==
LOC: JER 14:14
DX: M25.512 Pain in left shoulder (principal)
CPT/HCPCS: 36415; 71045-TC-FY; 71046-TC-FY; 80053; 81003; 83735; 84484; 85025; 87086; 93005; 93010; 99285-25

== ENCOUNTER 2021-11-18 16:41 | Observation (INO) | payer OTHER, MEDICARE ==
[2021-11-18] MEDS ORDERED: ONDANSETRON 4 MG/2 ML VIAL IVPB ONE (18:24)
[2021-11-18] MEDS ORDERED: ASPIRIN 325 MG ENTERIC COATED TABLET (FP) PO ONE (18:25)
[2021-11-18] MEDS ORDERED: ASPIRIN 81 MG CHEWABLE TABLETS PO ONE (18:40)
[2021-11-18] MEDS ORDERED: ASPIRIN 81 MG CHEWABLE TABLETS ONE (18:41)
[2021-11-18] MEDS ORDERED: ONDANSETRON 4 MG/2 ML VIAL ONE (18:41)
[2021-11-18 19:01] LABS: BASO % 0.3 % (0-2.0); EOS % 1.3 % (0-4.5); HEMATOCRIT 35.9 % (32.4-45.2); HEMOGLOBIN 11.9 GM/dL (10.7-15.3); LYMPH % 32.2 % (8-40); MCH 29.8 pg (25.7-33.7); MCHC 33.3 g/dl (32.0-36.0); MEAN CELL VOLUME 89.7 fl (80-96); MEAN PLT VOLUME 7.4 fl (7.5-11.1); MONO % 8.9 % (3.8-10.2); NEUT % 57.3 % (42.8-82.8); PLATELET COUNT 353 10^3/uL (134-434); RDW 15.2 % (11.6-15.6); WHITE BLOOD COUNT 7.5 K/mm3 (4.0-10.0)
[2021-11-18 19:30] LABS: CALCIUM 9.5 mg/dL (8.5-10.1)
[2021-11-18 19:31] LABS: BLOOD UREA NITROGEN 16.6 mg/dL (7-18)
[2021-11-18 19:34] LABS: CREATININE 0.6 mg/dL (0.55-1.3)
[2021-11-18 19:35] LABS: BILIRUBIN,TOTAL 0.2 mg/dL (0.2-1)
[2021-11-18] MEDS ORDERED: ACETAMINOPHEN 500 MG TABLET (FP) PO PRN (21:32)
[2021-11-18] MEDS ORDERED: MAG HYDROX/AL HYDROX/SIMETH 30 ML UNIT-DOSE CUP PO PRN (21:37)
[2021-11-18] MEDS ORDERED: ATORVASTATIN CA 10 MG TABLET (FP) PO SCH (22:00)
[2021-11-18] MEDS ORDERED: CITALOPRAM HYDROBROMIDE 20 MG TABLET PO SCH (22:35)
[2021-11-18] MEDS: metoPROLOL SUCCINATE 25 MG TAB.SR.24H (FP) PO SCH (22:41)
[2021-11-18] MEDS: INSULIN (LEVEMIR) 100 UNITS/ML UNITS SQ SCH (22:41)
[2021-11-18 23:44] VITALS: BMI 29.9
[2021-11-19] MEDS: INSULIN (LEVEMIR) 100 UNITS/ML UNITS SQ SCH (06:04)
[2021-11-19] MEDS: metFORMIN HCL 500 MG TABLET (FP) PO SCH ×2 (06:04→17:55)
[2021-11-19] MEDS ORDERED: CITALOPRAM HYDROBROMIDE 20 MG TABLET PO SCH (10:00)
[2021-11-19] MEDS ORDERED: LOSARTAN POTASSIUM 50 MG TABLET PO SCH (10:00)
[2021-11-19] MEDS ORDERED: PATIENT'S OWN MEDICATION (NON-FORMULARY) (Olmesartan Medoxomil [Benicar] 20 MG Tablet) PO SCH (10:00)
[2021-11-19] MEDS ORDERED: ASPIRIN 81 MG CHEWABLE TABLETS PO SCH (10:00)
[2021-11-19] MEDS ORDERED: PANTOPRAZOLE 20 MG TABLET PO SCH (10:00)
[2021-11-19] MEDS: FAMOTIDINE 40 MG TABLET PO SCH ×2 (10:08→10:15)
[2021-11-19] MEDS: metoPROLOL SUCCINATE 25 MG TAB.SR.24H (FP) PO SCH (10:08)
[2021-11-19 14:36] VITALS: BP 134/59; PULSE 82; TEMP 98.2
[2021-11-19] MEDS ORDERED: PATIENT'S OWN MEDICATION (NON-FORMULARY) (Semaglutide [Ozempic] 1 MG/0.75 ML Pen.Injctr) SQ SCH (21:37)
== END 2021-11-19 18:01 | disposition home or self-care (01) ==
LOC: JER 16:41 → INTOOBSV 17:40 → JERBED 17:40 → UNDOADMOB 17:40 → JERBED 17:41 → J4W 20:27
PROVIDERS: ADMIT Internal Medicine; ATTEND Internal Medicine
PROC: 3E033GC Introduction of Other Therapeutic Substance into Peripheral Vein, Percutaneous Approach (ICD-10-PCS; principal; 2021-11-18)
DX: R07.89 Other chest pain (principal); R20.2 Paresthesia of skin; I10 Essential (primary) hypertension; E11.9 Type 2 diabetes mellitus without complications; E78.5 Hyperlipidemia, unspecified; K21.9 Gastro-esophageal reflux disease without esophagitis; E04.1 Nontoxic single thyroid nodule; E11.40 Type 2 diabetes mellitus with diabetic neuropathy, unspecified; Z79.4 Long term (current) use of insulin; Z79.84 Long term (current) use of oral hypoglycemic drugs; R10.13 Epigastric pain; Z88.5 Allergy status to narcotic agent; Z91.041 Radiographic dye allergy status; Z91.013 Allergy to seafood
CPT/HCPCS: 36415; 71045-TC-FY; 80053; 82550; 82962; 83690; 84484; 85025; 93005; 93010; 93306-TC; 96374; 99285-25; C9803-CS; G0378; U0003; U0005

== ENCOUNTER 2021-11-30 15:52 | Emergency (ER) | payer OTHER, MEDICARE ==
[2021-11-30 16:04] VITALS: BP 101/73; PULSE 80; TEMP 98.4; BMI 29.9
== END 2021-11-30 18:00 | disposition home or self-care (01) ==
LOC: JERFT 15:52 → JER 15:52 → JERFT 18:00
DX: M10.072 Idiopathic gout, left ankle and foot (principal)
CPT/HCPCS: 73630-TC-LT; 99283-25

== ENCOUNTER 2022-02-09 09:08 | Emergency (ER) | payer OTHER, MEDICARE ==
[2022-02-09] MEDS ORDERED: SODIUM CHLORIDE 1,000 ML IV STA (09:16)
[2022-02-09 09:34] VITALS: BP 143/74; PULSE 85; RESP 18; TEMP 98; BMI 29.2
[2022-02-09 09:56] LABS: HEMATOCRIT 35.9 % (32.4-45.2); HEMOGLOBIN 12.2 G/dL (10.7-15.3); MCH 30.8 pg (25.7-33.7); MCHC 34.1 g/dl (32.0-36.0); MEAN CELL VOLUME 90.5 fl (80-96); MEAN PLT VOLUME 7.7 fl (7.5-11.1); RBC 3.97 10^6/uL (3.60-5.2); WHITE BLOOD COUNT 7.6 10^3/uL (4.0-10.8)
[2022-02-09 10:13] LABS: INR 1.02 (0.83-1.09); PROTHROMBIN TIME (PATIENT) 11.7 SEC (9.7-13.0)
[2022-02-09 10:18] LABS: ALBUMIN 3.7 g/dl (3.4-5.0); BILIRUBIN,TOTAL 0.5 mg/dl (0.2-1); CALCIUM 9.6 mg/dl (8.5-10); CREATININE 0.6 mg/dl (0.55-1.3); TOT PROT 7.2 g/dl (6.4-8.2)
[2022-02-09 12:15] LABS: EPITHELIAL CELLS FEW /hpf
[2022-02-09 12:16] LABS: URINE HYALINE CAST 0-2 /lpf; URINE MUCUS 1+
[2022-02-09 12:49] LABS: ANISOCYTOSIS 1+; PLATELET ESTIMATE ADEQUATE
== END 2022-02-09 11:24 | disposition home or self-care (01) ==
LOC: FER 09:08
PROC: 3E0337Z Introduction of Electrolytic and Water Balance Substance into Peripheral Vein, Percutaneous Approach (ICD-10-PCS; principal; 2022-02-09)
DX: R42 Dizziness and giddiness (principal)
CPT/HCPCS: 36415; 71045-TC-FY; 80053; 81003; 81015; 84484; 85027; 85610; 93005; 99285-25

== ENCOUNTER 2022-02-24 21:42 | Emergency (ER) | payer OTHER, MEDICARE ==
[2022-02-24 21:50] VITALS: BP 138/83; PULSE 82; RESP 18; BMI 29.2
[2022-02-24] MEDS ORDERED: MAG HYDROX/AL HYDROX/SIMETH -MYLANTA- ORAL SUSPENSION PO ONE (22:16)
[2022-02-24] MEDS ORDERED: FAMOTIDINE 20 MG/50 ML IVPB 20 MG/50 ML MG IVPB ONE ×2 (22:16→23:17)
[2022-02-24] MEDS ORDERED: MAG HYDROX/AL HYDROX/SIMETH 30 ML UNIT-DOSE CUP ONE (23:17)
[2022-02-24 23:39] LABS: BASO % 0.4 % (0-2.0); EOS % 0.9 % (0-4.5); HEMATOCRIT 36.1 % (32.4-45.2); HEMOGLOBIN 11.6 GM/dL (10.7-15.3); MCH 29.1 pg (25.7-33.7); MCHC 32.1 g/dl (32.0-36.0); MEAN CELL VOLUME 90.6 fl (80-96); MEAN PLT VOLUME 7.9 fl (7.5-11.1); MONO % 8.1 % (3.8-10.2); NEUT % 57.6 % (42.8-82.8); PLATELET COUNT 305 10^3/uL (134-434); RBC 3.98 M/mm3 (3.60-5.2); RDW 14.8 % (11.6-15.6); WHITE BLOOD COUNT 6.7 K/mm3 (4.0-10.0)
[2022-02-24 23:59] LABS: CHLORIDE 106 mmol/L (98-107); SODIUM 141 mmol/L (136-145)
[2022-02-25 00:01] LABS: CALCIUM 9.4 mg/dL (8.5-10.1)
[2022-02-25 00:03] LABS: ALBUMIN 3.8 g/dl (3.4-5.0); ANION GAP 6 MMOL/L (8-16); BLOOD UREA NITROGEN 13.9 mg/dL (7-18); CO2 28 mmol/L (21-32); GLUCOSE,RANDOM 154 mg/dL (74-106)
[2022-02-25 00:05] LABS: CREATININE 0.6 mg/dL (0.55-1.3); SGOT/AST 12 U/L (15-37); SGPT/ALT 26 U/L (13-61)
[2022-02-25 00:07] LABS: BILIRUBIN,TOTAL 0.2 mg/dL (0.2-1); TOT PROT 7.8 g/dl (6.4-8.2)
[2022-02-25 00:09] LABS: ALK PHOS 95 U/L (45-117)
== END 2022-02-25 04:19 | disposition home or self-care (01) ==
LOC: JER 21:42
PROC: 3E033NZ Introduction of Analgesics, Hypnotics, Sedatives into Peripheral Vein, Percutaneous Approach (ICD-10-PCS; principal; 2022-02-24)
DX: R07.9 Chest pain, unspecified (principal)
CPT/HCPCS: 36415; 71045-TC-FY; 80053; 84484; 85025; 93005; 93010; 99284-25; C9803-CS; U0003; U0005

== ENCOUNTER 2022-03-05 00:24 | Emergency (ER) | payer OTHER, MEDICARE ==
[2022-03-05 00:34] VITALS: RESP 18; TEMP 98.6; BMI 29.2
[2022-03-05 00:48] VITALS: BP 142/64; PULSE 80
[2022-03-05] MEDS ORDERED: FAMOTIDINE 20 MG/50 ML IVPB 20 MG/50 ML MG IVPB ONE ×2 (00:50→01:32)
[2022-03-05] MEDS ORDERED: MAG HYDROX/AL HYDROX/SIMETH 30 ML UNIT-DOSE CUP PO ONE (00:50)
[2022-03-05] MEDS ORDERED: MAG HYDROX/AL HYDROX/SIMETH 30 ML UNIT-DOSE CUP ONE (01:12)
[2022-03-05 01:28] LABS: EOS % 0.9 % (0-4.5); HEMATOCRIT 36.1 % (32.4-45.2); LYMPH % 27.7 % (8-40); MCH 30.2 pg (25.7-33.7); MCHC 33.3 g/dl (32.0-36.0); MEAN CELL VOLUME 90.7 fl (80-96); MONO % 7.8 % (3.8-10.2); NEUT % 62.6 % (42.8-82.8); PLATELET COUNT 313 10^3/uL (134-434); RBC 3.98 M/mm3 (3.60-5.2); RDW 15.2 % (11.6-15.6); WHITE BLOOD COUNT 8.3 K/mm3 (4.0-10.0)
[2022-03-05 01:48] LABS: CALCIUM 9.3 mg/dL (8.5-10.1)
[2022-03-05 01:49] LABS: ALBUMIN 3.5 g/dl (3.4-5.0); BLOOD UREA NITROGEN 16.7 mg/dL (7-18)
[2022-03-05 01:52] LABS: CREATININE 0.8 mg/dL (0.55-1.3)
[2022-03-05 01:55] LABS: BILIRUBIN,TOTAL 0.3 mg/dL (0.2-1); TOT PROT 7.3 g/dl (6.4-8.2)
== END 2022-03-05 05:15 | disposition home or self-care (01) ==
LOC: JER 00:24
PROC: 3E033GC Introduction of Other Therapeutic Substance into Peripheral Vein, Percutaneous Approach (ICD-10-PCS; principal; 2022-03-05)
DX: I34.0 Nonrheumatic mitral (valve) insufficiency (principal); I07.1 Rheumatic tricuspid insufficiency
CPT/HCPCS: 36415; 71045-TC-FY; 80053; 84484; 85025; 93005; 93010; 99285-25

== ENCOUNTER 2022-03-20 17:34 | Emergency (ER) | payer OTHER, MEDICARE ==
[2022-03-20 18:48] VITALS: BP 151/70; PULSE 73; RESP 17; TEMP 98.6; BMI 32.5
[2022-03-20] MEDS ORDERED: SODIUM CHLORIDE 0.9% 500 ML INFUS.BAG IV ONE (19:42)
[2022-03-20 21:56] LABS: BASO % 1.1 % (0-2.0); EOS % 0.5 % (0-4.5); HEMATOCRIT 39.2 % (32.4-45.2); HEMOGLOBIN 13.1 GM/dL (10.7-15.3); LYMPH % 26.9 % (8-40); MCH 30.2 pg (25.7-33.7); MCHC 33.5 g/dl (32.0-36.0); MEAN PLT VOLUME 7.5 fl (7.5-11.1); NEUT % 65.5 % (42.8-82.8); PLATELET COUNT 364 10^3/uL (134-434); RBC 4.36 M/mm3 (3.60-5.2); RDW 14.9 % (11.6-15.6); WHITE BLOOD COUNT 10.5 K/mm3 (4.0-10.0)
[2022-03-20 22:22] LABS: CALCIUM 9.9 mg/dL (8.5-10.1)
[2022-03-20 22:23] LABS: ALBUMIN 3.7 g/dl (3.4-5.0); BLOOD UREA NITROGEN 16.3 mg/dL (7-18)
[2022-03-20 22:26] LABS: CREATININE 0.7 mg/dL (0.55-1.3); PHOSPHOROUS 3.1 mg/dL (2.5-4.9)
[2022-03-20 22:27] LABS: BILIRUBIN,TOTAL 0.2 mg/dL (0.2-1); TOT PROT 7.9 g/dl (6.4-8.2)
[2022-03-21 00:39] LABS: URINE APPEARANCE CLEAR; URINE BILIRUBIN NEGATIVE (NEGATIVE); URINE COLOR YELLOW; URINE GLUCOSE (UA) NEGATIVE (NEGATIVE); URINE KETONE NEGATIVE (NEGATIVE); URINE LEUK ESTERASE NEGATIVE (NEGATIVE); URINE NITRITE NEGATIVE (NEGATIVE); URINE PROTEIN NEGATIVE (NEGATIVE); URINE UROBILINOGEN 0.2 mg/dL (0.2-1.0)
== END 2022-03-21 01:00 | disposition home or self-care (01) ==
LOC: JER 17:34
DX: R53.1 Weakness (principal)
CPT/HCPCS: 0241U-QW; 36415; 71046-TC-FY; 80053; 81003; 83735; 84100; 84443; 84484; 85025; 93005; 93010; 99284-25

== ENCOUNTER 2022-03-21 22:12 | Emergency (ER) | payer OTHER, MEDICARE ==
[2022-03-21 22:19] VITALS: BP 148/68; PULSE 100; RESP 17; TEMP 98.1; BMI 30.2
== END 2022-03-22 01:26 | disposition home or self-care (01) ==
LOC: JER 22:12
DX: R00.2 Palpitations (principal)
CPT/HCPCS: 93005; 93010; 99283-25

== ENCOUNTER 2022-07-28 01:43 | Emergency (ER) | payer OTHER, MEDICARE ==
[2022-07-28 01:53] VITALS: BP 152/83; PULSE 80; RESP 18; TEMP 97.8; BMI 30.7
[2022-07-28] MEDS ORDERED: ACETAMINOPHEN 1000 MG/100 ML BAG IVPB ONE (02:11)
[2022-07-28] MEDS ORDERED: ASPIRIN 81 MG CHEWABLE TABLETS PO ONE (02:11)
[2022-07-28] MEDS ORDERED: ASPIRIN 81 MG CHEWABLE TABLETS ONE (02:17)
[2022-07-28] MEDS ORDERED: ACETAMINOPHEN INJECTION 100 ML IVPB ONE (02:17)
[2022-07-28 02:47] LABS: BASO % 0.6 % (0-2.0)
[2022-07-28 03:03] LABS: INR 1.04 (0.83-1.09); PROTHROMBIN TIME (PATIENT) 12.1 SEC (9.7-13.0)
[2022-07-28 03:04] LABS: CHLORIDE 107 mmol/L (98-107); EOS % 0.9 % (0-4.5); HEMATOCRIT 35.5 % (32.4-45.2); HEMOGLOBIN 11.5 GM/dL (10.7-15.3); MCH 28.8 pg (25.7-33.7); MCHC 32.5 g/dl (32.0-36.0); MEAN CELL VOLUME 88.7 fl (80-96); MONO % 8.2 % (3.8-10.2); NEUT % 54.3 % (42.8-82.8); RBC 4.01 M/mm3 (3.60-5.2); RDW 14.9 % (11.6-15.6); SODIUM 140 mmol/L (136-145); WHITE BLOOD COUNT 10.6 K/mm3 (4.0-10.0)
[2022-07-28 03:06] LABS: ACTIVATED PTT 23.8 SECONDS (25.2-36.5); CALCIUM 9.2 mg/dL (8.5-10.1)
[2022-07-28 03:07] LABS: ALBUMIN 3.3 g/dl (3.4-5.0); ANION GAP 7 MMOL/L (8-16); CO2 27 mmol/L (21-32); GLUCOSE,RANDOM 258 mg/dL (74-106); LIPASE 185 U/L (73-393); MAGNESIUM 1.7 mg/dL (1.8-2.4)
[2022-07-28 03:10] LABS: CREATININE 0.7 mg/dL (0.55-1.3); SGOT/AST 31 U/L (15-37); SGPT/ALT 32 U/L (13-61)
[2022-07-28 03:11] LABS: BILIRUBIN,TOTAL 0.3 mg/dL (0.2-1); TOT PROT 7.2 g/dl (6.4-8.2)
[2022-07-28 03:13] LABS: ALK PHOS 80 U/L (45-117)
[2022-07-28 03:16] LABS: N-TERMINAL BNP 54.9 pg/ml (5-125)
[2022-07-28 05:16] LABS: PLATELET COUNT 223 10^3/uL (134-434)
[2022-07-28 05:17] LABS: MEAN PLT VOLUME 8.7 fl (7.5-11.1)
== END 2022-07-28 04:07 | disposition home or self-care (01) ==
LOC: JER 01:43
PROC: 3E033NZ Introduction of Analgesics, Hypnotics, Sedatives into Peripheral Vein, Percutaneous Approach (ICD-10-PCS; principal; 2022-07-28)
DX: R07.89 Other chest pain (principal)
CPT/HCPCS: 36415; 71045-TC-FY; 80053; 82962; 83690; 83735; 83880; 84484; 85025; 85610; 85730; 93005; 93010; 99285-25

== ENCOUNTER 2022-09-21 13:34 | Emergency (ER) | payer OTHER ==
[2022-09-21 14:08] VITALS: RESP 18; TEMP 97.6; BMI 29.9
[2022-09-21 15:26] LABS: BASO % 0.6 % (0-2.0); HEMATOCRIT 33.4 % (32.4-45.2); HEMOGLOBIN 11.2 GM/dL (10.7-15.3); MCH 30.1 pg (25.7-33.7); MCHC 33.4 g/dl (32.0-36.0); MEAN CELL VOLUME 89.9 fl (80-96); NEUT % 55.4 % (42.8-82.8); PLATELET COUNT 275 10^3/uL (134-434); RBC 3.71 M/mm3 (3.60-5.2); RDW 14.8 % (11.6-15.6)
[2022-09-21 15:48] LABS: POTASSIUM 4.5 mmol/L (3.5-5.1)
[2022-09-21 15:49] LABS: CALCIUM 8.9 mg/dL (8.5-10.1)
[2022-09-21 15:50] LABS: ALBUMIN 3.3 g/dl (3.4-5.0); BLOOD UREA NITROGEN 12.8 mg/dL (7-18); MAGNESIUM 1.9 mg/dL (1.8-2.4)
[2022-09-21 15:53] LABS: CREATININE 0.8 mg/dL (0.55-1.3); PHOSPHOROUS 2.1 mg/dL (2.5-4.9)
[2022-09-21 15:55] LABS: BILIRUBIN,TOTAL 0.2 mg/dL (0.2-1); TOT PROT 7.1 g/dl (6.4-8.2)
[2022-09-21 16:35] VITALS: BP 126/81; PULSE 81
== END 2022-09-21 17:11 | disposition home or self-care (01) ==
LOC: JER 13:34
DX: R53.83 Other fatigue (principal); R00.2 Palpitations; R07.89 Other chest pain; R53.81 Other malaise
CPT/HCPCS: 36415; 71045-TC-FY; 80053; 83735; 84100; 84443; 84484; 85025; 93005; 93010; 99285-25

== ENCOUNTER 2022-10-30 18:57 | Emergency (ER) | payer OTHER, MEDICARE ==
[2022-10-30 19:11] VITALS: BP 144/69; PULSE 78; RESP 18; TEMP 98.3; BMI 29.9
[2022-10-30] MEDS ORDERED: ASPIRIN 81 MG CHEWABLE TABLETS PO ONE (19:47)
[2022-10-30] MEDS ORDERED: CITALOPRAM HYDROBROMIDE 20 MG TABLET PO ONE (19:47)
[2022-10-30 20:03] LABS: BASO % 0.4 % (0-2.0); EOS % 1.2 % (0-4.5); HEMATOCRIT 38.1 % (32.4-45.2); HEMOGLOBIN 12.6 GM/dL (10.7-15.3); LYMPH % 34.9 % (8-40); MCH 29.2 pg (25.7-33.7); MCHC 33.1 g/dl (32.0-36.0); MEAN CELL VOLUME 88.3 fl (80-96); MEAN PLT VOLUME 8.1 fl (7.5-11.1); MONO % 9.6 % (3.8-10.2); NEUT % 53.9 % (42.8-82.8); PLATELET COUNT 364 10^3/uL (134-434); RBC 4.31 M/mm3 (3.60-5.2); RDW 14.8 % (11.6-15.6); WHITE BLOOD COUNT 8.1 K/mm3 (4.0-10.0)
[2022-10-30 20:20] LABS: POTASSIUM 3.9 mmol/L (3.5-5.1)
[2022-10-30 20:24] LABS: ALBUMIN 3.8 g/dl (3.4-5.0); BLOOD UREA NITROGEN 17.1 mg/dL (7-18); MAGNESIUM 1.9 mg/dL (1.8-2.4)
[2022-10-30 20:26] LABS: CREATININE 0.8 mg/dL (0.55-1.3); PHOSPHOROUS 3.8 mg/dL (2.5-4.9)
[2022-10-30 20:27] LABS: BILIRUBIN,TOTAL 0.1 mg/dL (0.2-1); TOT PROT 7.8 g/dl (6.4-8.2)
== END 2022-10-30 21:45 | disposition home or self-care (01) ==
LOC: JER 18:57
DX: R00.2 Palpitations (principal); R06.02 Shortness of breath; Z20.822 Contact with and (suspected) exposure to COVID-19
CPT/HCPCS: 0241U-QW; 36415; 71045-TC-FY; 80053; 83735; 84100; 84439; 84443; 84484; 85025; 93005; 93010; 99285-25

== ENCOUNTER 2022-11-22 19:43 | Emergency (ER) | payer OTHER, MEDICARE ==
[2022-11-22 19:55] VITALS: RESP 18; BMI 29.7
[2022-11-22] MEDS ORDERED: ACETAMINOPHEN 325 MG TABLET (FP) PO ONE (21:39)
[2022-11-22] MEDS ORDERED: ACETAMINOPHEN 325 MG TABLET (FP) ONE (21:50)
[2022-11-22 22:06] LABS: EPI CELLS 12 /uL (0-25.1); HYALINE CASTS 0 /uL (0-3.1); PH,URINE 5.5 (5.0-8.0); URINE APPEARANCE CLEAR; URINE BACTERIA 76 /uL (0-1359); URINE BILIRUBIN NEGATIVE (NEGATIVE); URINE COLOR YELLOW; URINE GLUCOSE (UA) 3+ (NEGATIVE); URINE KETONE TRACE (NEGATIVE); URINE LEUK ESTERASE NEGATIVE (NEGATIVE); URINE NITRITE NEGATIVE (NEGATIVE); URINE PROTEIN 2+ (NEGATIVE); URINE RBC 12 /uL (0-23.9); URINE UROBILINOGEN 0.2 mg/dL (0.2-1.0); URINE WBC 43 /uL (0-25.8)
[2022-11-22 22:16] LABS: BASO % 0.4 % (0-2.0); HEMATOCRIT 34.9 % (32.4-45.2); HEMOGLOBIN 11.4 GM/dL (10.7-15.3); LYMPH % 32.7 % (8-40); MCH 28.9 pg (25.7-33.7); MCHC 32.8 g/dl (32.0-36.0); MEAN CELL VOLUME 88.1 fl (80-96); MEAN PLT VOLUME 7.8 fl (7.5-11.1); NEUT % 56.9 % (42.8-82.8); PLATELET COUNT 282 10^3/uL (134-434); RBC 3.96 M/mm3 (3.60-5.2); RDW 14.7 % (11.6-15.6); WHITE BLOOD COUNT 7.3 K/mm3 (4.0-10.0)
[2022-11-22 22:26] LABS: CHLORIDE 109 mmol/L (98-107); POTASSIUM 3.9 mmol/L (3.5-5.1); SODIUM 146 mmol/L (136-145)
[2022-11-22 22:28] LABS: ALBUMIN 3.5 g/dl (3.4-5.0); ANION GAP 9 MMOL/L (8-16); BLOOD UREA NITROGEN 17.4 mg/dL (7-18); CALCIUM 9.2 mg/dL (8.5-10.1); CO2 28 mmol/L (21-32); GLUCOSE,RANDOM 203 mg/dL (74-106)
[2022-11-22 22:31] LABS: CREATININE 0.7 mg/dL (0.55-1.3); SGOT/AST 13 U/L (15-37); SGPT/ALT 32 U/L (13-61)
[2022-11-22 22:33] LABS: BILIRUBIN,TOTAL < 0.1 mg/dL (0.2-1); TOT PROT 7.1 g/dl (6.4-8.2)
[2022-11-22 22:34] LABS: ALK PHOS 87 U/L (45-117)
[2022-11-22] MEDS ORDERED: CEPHALEXIN MONOHYDRATE 500 MG CAPSULE (UD) PO ONE (22:57)
[2022-11-22 23:08] VITALS: BP 138/68; PULSE 76; TEMP 98
[2022-11-22] MEDS ORDERED: CEPHALEXIN MONOHYDRATE 500 MG CAPSULE (UD) ONE (23:11)
== END 2022-11-22 23:39 | disposition home or self-care (01) ==
LOC: JER 19:43 → JERFT 19:43
DX: N30.00 Acute cystitis without hematuria (principal); R35.0 Frequency of micturition; R39.15 Urgency of urination; R30.0 Dysuria; R39.11 Hesitancy of micturition; R10.30 Lower abdominal pain, unspecified; M54.9 Dorsalgia, unspecified; M79.89 Other specified soft tissue disorders
CPT/HCPCS: 36415; 80053; 81003; 85025; 87086; 99283-25

== ENCOUNTER 2023-01-20 12:48 | Emergency (ER) | payer OTHER, MEDICARE ==
[2023-01-20 12:54] VITALS: BP 150/79; PULSE 79; RESP 18; TEMP 98.2; BMI 30.2
[2023-01-20] MEDS ORDERED: diphenhydrAMINE HCL 25 MG CAPSULE (FP) PO ONE ×2 (13:30→13:36)
== END 2023-01-20 15:06 | disposition home or self-care (01) ==
LOC: JERFT 12:48
DX: R06.7 Sneezing (principal); R09.89 Other specified symptoms and signs involving the circulatory and respiratory systems; Z20.822 Contact with and (suspected) exposure to COVID-19
CPT/HCPCS: 0241U-QW; 99283-25

== ENCOUNTER 2023-05-29 19:14 | Emergency (ER) | payer OTHER, MEDICARE ==
[2023-05-29 19:20] VITALS: BMI 30.4
[2023-05-29 23:33] LABS: BASO % 0.7 % (0-2.0); EOS % 0.5 % (0-4.5); HEMATOCRIT 37.8 % (32.4-45.2); HEMOGLOBIN 12.4 GM/dL (10.7-15.3); LYMPH % 22.5 % (8-40); MCH 29.4 pg (25.7-33.7); MCHC 32.8 g/dl (32.0-36.0); MEAN CELL VOLUME 89.6 fl (80-96); MEAN PLT VOLUME 7.7 fl (7.5-11.1); MONO % 7.7 % (3.8-10.2); NEUT % 68.6 % (42.8-82.8); PLATELET COUNT 325 10^3/uL (134-434); RBC 4.22 M/mm3 (3.60-5.2); RDW 15.4 % (11.6-15.6); WHITE BLOOD COUNT 8.8 K/mm3 (4.0-10.0)
[2023-05-29 23:56] LABS: CHLORIDE 106 mmol/L (98-107); POTASSIUM 4.2 mmol/L (3.5-5.1); SODIUM 140 mmol/L (136-145)
[2023-05-29 23:58] LABS: BLOOD UREA NITROGEN 17.2 mg/dL (7-18); CALCIUM 9.8 mg/dL (8.5-10.1)
[2023-05-29 23:59] LABS: ALBUMIN 3.5 g/dl (3.4-5.0); ANION GAP 4 mmol/L (4-13); CO2 30 mmol/L (21-32); GLUCOSE,RANDOM 199 mg/dL (74-106)
[2023-05-30 00:01] LABS: CREATININE 0.7 mg/dL (0.55-1.3)
[2023-05-30 00:02] LABS: SGOT/AST 19 U/L (15-37); SGPT/ALT 35 U/L (13-61)
[2023-05-30 00:03] LABS: BILIRUBIN,TOTAL < 0.1 mg/dL (0.2-1); TOT PROT 7.6 g/dl (6.4-8.2)
[2023-05-30 00:04] LABS: ALK PHOS 89 U/L (45-117)
[2023-05-30 00:07] LABS: N-TERMINAL BNP 98.8 pg/ml (5-125)
[2023-05-30] MEDS ORDERED: CITALOPRAM HYDROBROMIDE 20 MG TABLET PO ONE (01:05)
[2023-05-30] MEDS ORDERED: METOPROLOL TARTRATE 25 MG TABLET (FP) PO ONE (01:06)
[2023-05-30] MEDS ORDERED: ACETAMINOPHEN 325 MG TABLET (FP) PO ONE (01:07)
[2023-05-30] MEDS ORDERED: METOPROLOL TARTRATE 25 MG TABLET (FP) ONE (01:30)
[2023-05-30] MEDS ORDERED: ACETAMINOPHEN 325 MG TABLET (FP) ONE (01:30)
[2023-05-30 01:37] VITALS: RESP 18
[2023-05-30 08:41] VITALS: BP 148/69; PULSE 68; TEMP 98.4
== END 2023-05-30 10:47 | disposition home or self-care (01) ==
LOC: JER 19:14
DX: R51.9 Headache, unspecified (principal); R53.81 Other malaise; F41.9 Anxiety disorder, unspecified; R07.89 Other chest pain; Z20.822 Contact with and (suspected) exposure to COVID-19
CPT/HCPCS: 0241U-QW; 36415; 71046-TC-FY; 80053; 82550; 83880; 84443; 84484; 85025; 93005; 93010; 99285-25

== ENCOUNTER → 2023-08-09 | Day surgery (SDC) | payer OTHER, MEDICARE | END | disposition home or self-care (01) | LOC: JRADIR 10:53 | PROVIDERS: ATTEND Internal Medicine Endocrinology, Diabetes & Metabolism | PROC: 0G9G3ZX Drainage of Left Thyroid Gland Lobe, Percutaneous Approach, Diagnostic (ICD-10-PCS; principal; 2023-08-09) | DX: E04.1 Nontoxic single thyroid nodule (principal) | CPT/HCPCS: 10005; 76942; 88173; 88305-TC ==

== ENCOUNTER 2023-11-28 12:24 | Emergency (ER) | payer OTHER, MEDICARE ==
[2023-11-28 12:31] VITALS: BP 144/66; PULSE 90; RESP 18; TEMP 98.2; BMI 29.9
== END 2023-11-28 16:27 | disposition home or self-care (01) ==
LOC: JERFT 12:24
DX: U07.1 COVID-19 (principal); R50.9 Fever, unspecified; R05.9 Cough, unspecified; R09.81 Nasal congestion
CPT/HCPCS: 0241U-QW; 82962; 99283-25

== ENCOUNTER 2024-01-30 22:24 | Emergency (ER) | payer OTHER, MEDICARE ==
[2024-01-30 22:35] VITALS: BP 124/75; PULSE 80; RESP 18; TEMP 98.4; BMI 30.2
== END 2024-01-30 23:15 | disposition home or self-care (01) ==
LOC: JERFT 22:24
DX: G47.00 Insomnia, unspecified (principal); F41.9 Anxiety disorder, unspecified; R51.9 Headache, unspecified
CPT/HCPCS: 99283-25

== ENCOUNTER 2024-03-08 12:20 | Emergency (ER) | payer OTHER, MEDICARE ==
[2024-03-08 12:34] VITALS: BP 131/81; PULSE 51; RESP 16; TEMP 98.4; BMI 26.6
[2024-03-08 16:41] LABS: BASO % 0.5 % (0-2.0); HEMATOCRIT 35.8 % (32.4-45.2); HEMOGLOBIN 11.6 GM/dL (10.7-15.3); LYMPH % 35.2 % (8-40); MCH 29.3 pg (25.7-33.7); MCHC 32.4 g/dl (32.0-36.0); MEAN CELL VOLUME 90.5 fl (80-96); MEAN PLT VOLUME 7.8 fl (7.5-11.1); MONO % 10.1 % (3.8-10.2); NEUT % 53.2 % (42.8-82.8); PLATELET COUNT 319 10^3/uL (134-434); RBC 3.96 M/mm3 (3.60-5.2); WHITE BLOOD COUNT 6.2 K/mm3 (4.0-10.0)
[2024-03-08 16:59] LABS: CALCIUM 9.2 mg/dL (8.5-10.1)
[2024-03-08 17:00] LABS: ALBUMIN 3.3 g/dl (3.4-5.0); BLOOD UREA NITROGEN 13.3 mg/dL (7-18)
[2024-03-08 17:03] LABS: CREATININE 0.8 mg/dL (0.55-1.3)
[2024-03-08 17:05] LABS: BILIRUBIN,TOTAL 0.2 mg/dL (0.2-1); TOT PROT 7.1 g/dl (6.4-8.2)
== END 2024-03-08 19:03 | disposition home or self-care (01) ==
LOC: JER 12:20
DX: R00.2 Palpitations (principal); F43.0 Acute stress reaction; R05.9 Cough, unspecified; R06.02 Shortness of breath; R09.81 Nasal congestion; Z20.822 Contact with and (suspected) exposure to COVID-19
CPT/HCPCS: 0241U-QW; 36415; 71046-TC-FY; 80053; 82962; 84484; 85025; 93005; 93010; 99285-25

== ENCOUNTER 2024-07-18 18:14 | Emergency (ER) | payer OTHER, MEDICARE ==
[2024-07-18 18:28] VITALS: BP 151/71; PULSE 68; RESP 16; TEMP 98.7; BMI 31.0
[2024-07-18 20:52] LABS: EPI CELLS 1 /uL (0-25.1); HYALINE CASTS 0 /uL (0-3.1); PH,URINE 5.5 (5.0-8.0); URINE APPEARANCE CLEAR; URINE BACTERIA 5 /uL (0-1359); URINE BILIRUBIN NEGATIVE (NEGATIVE); URINE COLOR YELLOW; URINE GLUCOSE (UA) TRACE (NEGATIVE); URINE KETONE NEGATIVE (NEGATIVE); URINE LEUK ESTERASE NEGATIVE (NEGATIVE); URINE NITRITE NEGATIVE (NEGATIVE); URINE PROTEIN 2+ (NEGATIVE); URINE UROBILINOGEN 0.2 mg/dL (0.2-1.0); URINE WBC 6 /uL (0-25.8)
[2024-07-19 00:14] LABS: URINE RBC 64.1 /uL (0-23.9)
== END 2024-07-18 22:15 | disposition home or self-care (01) ==
LOC: JERFT 18:14
DX: R30.0 Dysuria (principal); R35.0 Frequency of micturition
CPT/HCPCS: 81003; 87086; 99283-25

== ENCOUNTER 2024-09-12 07:41 | Emergency (ER) | payer OTHER, MEDICARE ==
[2024-09-12 07:50] VITALS: RESP 16; BMI 30.2
[2024-09-12] MEDS ORDERED: ACETAMINOPHEN INJECTION 100 ML ONE (08:40)
[2024-09-12] MEDS ORDERED: FAMOTIDINE 20 MG/50 ML IVPB 20 MG/50 ML MG IVPB ONE (08:40)
[2024-09-12] MEDS: FAMOTIDINE 20 MG/50 ML IVPB 20 MG/50 ML MG IVPB ONE (09:14)
[2024-09-12] MEDS: FAMOTIDINE 20 MG TABLET PO ONE (09:14)
[2024-09-12] MEDS: ACETAMINOPHEN 1000 MG/100 ML BAG IVPB ONE (09:14)
[2024-09-12] MEDS: ACETAMINOPHEN 500 MG TABLET (FP) PO ONE (09:14)
[2024-09-12] MEDS ORDERED: FAMOTIDINE 20 MG TABLET ONE (09:17)
[2024-09-12] MEDS ORDERED: ACETAMINOPHEN 325 MG TABLET (FP) ONE (09:18)
[2024-09-12 09:44] LABS: EPI CELLS 2 /uL (0-25.1); HYALINE CASTS 0 /uL (0-3.1); PH,URINE 5.5 (5.0-8.0); URINE APPEARANCE CLEAR; URINE BACTERIA 4 /uL (0-1359); URINE BILIRUBIN NEGATIVE (NEGATIVE); URINE COLOR YELLOW; URINE GLUCOSE (UA) NEGATIVE (NEGATIVE); URINE KETONE NEGATIVE (NEGATIVE); URINE LEUK ESTERASE NEGATIVE (NEGATIVE); URINE NITRITE NEGATIVE (NEGATIVE); URINE PROTEIN 1+ (NEGATIVE); URINE RBC 4 /uL (0-23.9); URINE UROBILINOGEN 0.2 mg/dL (0.2-1.0); URINE WBC 6 /uL (0-25.8)
[2024-09-12 09:59] LABS: POTASSIUM 4.3 mmol/L (3.5-5.1)
[2024-09-12 10:01] LABS: CALCIUM 10.2 mg/dL (8.5-10.1)
[2024-09-12 10:02] LABS: ALBUMIN 3.6 g/dl (3.4-5.0); BLOOD UREA NITROGEN 16.8 mg/dL (7-18); MAGNESIUM 1.7 mg/dL (1.8-2.4)
[2024-09-12 10:05] LABS: CREATININE 0.7 mg/dL (0.55-1.3)
[2024-09-12 10:06] LABS: BILIRUBIN,TOTAL 0.4 mg/dL (0.2-1)
[2024-09-12 10:07] LABS: TOT PROT 7.5 g/dl (6.4-8.2)
[2024-09-12 10:56] LABS: ABSOLUTE IMMATURE GRANULOCYTES 0.02 x10^3/uL (0.0-0.031); BASOPHILS # 0.03 x10^3/uL (0.01-0.08); EOSINOPHIL % 0.9 % (0.7-5.8); EOSINOPHILS # 0.06 x10^3/uL (0.04-0.36); HEMATOCRIT 35.1 % (34.1-44.9); HEMOGLOBIN 11.2 g/dL (11.2-15.7); MCHC 31.9 g/dl (32.2-35.5); MEAN CELL VOLUME 93.9 fl (79.4-94.8); MEAN PLT VOLUME 10.1 fl (9.4-12.3); MONOCYTE # 0.59 x10^3/uL (0.24-0.86); MONOCYTE % 8.8 % (4.7-12.5); PLATELET COUNT 286 x10^3/uL (182-369); RDW 13.8 % (12.4-16.4)
[2024-09-12 11:04] LABS: INR 1.04 (0.83-1.09); PROTHROMBIN TIME (PATIENT) 11.4 SEC (9.7-13.0)
[2024-09-12 11:07] LABS: ACTIVATED PTT 31.1 SECONDS (25.2-36.5)
[2024-09-12 11:13] LABS: POTASSIUM 3.9 mmol/L (3.5-5.1)
[2024-09-12 11:14] LABS: BLOOD UREA NITROGEN 16.3 mg/dL (7-18); CALCIUM 10.1 mg/dL (8.5-10.1)
[2024-09-12 11:18] LABS: CREATININE 0.6 mg/dL (0.55-1.3)
[2024-09-12 12:47] VITALS: BP 162/89; PULSE 81; TEMP 98.4
== END 2024-09-12 16:20 | disposition home or self-care (01) ==
LOC: JER 07:41
DX: K57.30 Diverticulosis of large intestine without perforation or abscess without bleeding (principal); R10.13 Epigastric pain; R10.30 Lower abdominal pain, unspecified; R11.0 Nausea; R19.7 Diarrhea, unspecified; K59.00 Constipation, unspecified
CPT/HCPCS: 36415; 74176-TC; 80048; 80053; 81003; 83735; 84484; 85025; 85610; 85730; 86850; 86900; 86901; 87086; 99284-25

== ENCOUNTER 2024-12-13 21:30 | Emergency (ER) | payer OTHER, MEDICARE ==
[2024-12-13 21:35] VITALS: BP 134/87; PULSE 88; RESP 18; BMI 31.2
[2024-12-13 21:53] VITALS: TEMP 97.9
[2024-12-13] MEDS ORDERED: ACETAMINOPHEN INJECTION 100 ML ONE (22:45)
[2024-12-13 22:50] LABS: ABSOLUTE IMMATURE GRANULOCYTES 0.02 x10^3/uL (0.0-0.031); BASOPHILS # 0.02 x10^3/uL (0.01-0.08); EOSINOPHIL % 0.6 % (0.7-5.8); EOSINOPHILS # 0.04 x10^3/uL (0.04-0.36); MCHC 31.2 g/dl (32.2-35.5); MEAN CELL VOLUME 94.9 fl (79.4-94.8); MEAN PLT VOLUME 9.5 fl (9.4-12.3); MONOCYTE # 0.51 x10^3/uL (0.24-0.86); MONOCYTE % 7.5 % (4.7-12.5); RDW 13.9 % (12.4-16.4)
[2024-12-13] MEDS: LACTATED RINGERS SOLUTION 1000 ML INFUS.BAG IV ONE (23:04)
[2024-12-13] MEDS: ACETAMINOPHEN 1000 MG/100 ML BAG IVPB ONE (23:06)
[2024-12-13 23:08] LABS: CO2 32.0 mmol/L (21-32)
[2024-12-13 23:09] LABS: GLUCOSE,RANDOM 182.0 mg/dL (74-106)
[2024-12-13 23:11] LABS: SGOT/AST 19.0 U/L (15-37); SGPT/ALT 41.0 U/L (13-61)
[2024-12-13 23:12] LABS: CREATININE 0.7 mg/dL (0.55-1.3)
[2024-12-13 23:13] LABS: TOT PROT 7.6 g/dl (6.4-8.2)
[2024-12-13 23:14] LABS: ALK PHOS 100.0 U/L (45-117)
[2024-12-14 00:01] LABS: HCV DIAGNOSTIC IN-HOUSE W/RFLX NON-REACTIVE (NONREACTIVE); HIV INTERPRETATION NEGATIVE (NEGATIVE)
[2024-12-14 00:10] LABS: EPI CELLS 7 /uL (0-25.1); HYALINE CASTS 0 /uL (0-3.1); URINE APPEARANCE CLEAR; URINE BACTERIA 44 /uL (0-1359); URINE BILIRUBIN NEGATIVE (NEGATIVE); URINE COLOR YELLOW; URINE GLUCOSE (UA) NEGATIVE (NEGATIVE); URINE KETONE NEGATIVE (NEGATIVE); URINE LEUK ESTERASE 1+ (NEGATIVE); URINE NITRITE NEGATIVE (NEGATIVE); URINE PROTEIN 2+ (NEGATIVE); URINE RBC 22 /uL (0-23.9); URINE UROBILINOGEN 0.2 mg/dL (0.2-1.0); URINE WBC 108 /uL (0-25.8)
[2024-12-14] MEDS ORDERED: CEPHALEXIN MONOHYDRATE 500 MG CAPSULE (UD) ONE (00:19)
[2024-12-14] MEDS: CEPHALEXIN MONOHYDRATE 500 MG CAPSULE (UD) PO ONE (00:20)
== END 2024-12-14 00:29 | disposition home or self-care (01) ==
LOC: JER 21:30
PROC: 3E033NZ Introduction of Analgesics, Hypnotics, Sedatives into Peripheral Vein, Percutaneous Approach (ICD-10-PCS; principal; 2024-12-13)
DX: R51.9 Headache, unspecified (principal); E11.65 Type 2 diabetes mellitus with hyperglycemia; N39.0 Urinary tract infection, site not specified; B96.89 Other specified bacterial agents as the cause of diseases classified elsewhere; R61 Generalized hyperhidrosis; R35.0 Frequency of micturition; Z79.4 Long term (current) use of insulin
CPT/HCPCS: 36415; 71046-TC-FY; 80053; 81003; 82962; 83735; 84484; 85025; 86803; 87086; 87389; 87637-QW; 93005; 93010; 99285-25